=== PATIENT | female | born 1945 | race Caucasian/White ===

== ENCOUNTER 2019-11-02 13:11 | Emergency (ER) | payer MEDICARE, OTHER ==
--- NOTE | 2019-11-02 14:03 | ERPHSYRPT ---
- History of Present Illness Time Seen by Provider: 11/02/19 13:19 Source: patient Exam Limitations: no limitations Patient Subjective Stated Complaint: Pt has right sided weakness and feels like she can't get her words out. Also states she has a massive headache x 2wks Triage Nursing Assessment: Pt appears to be weak and has some right sided wea kness at this time. No trouble swallowing noted. Physician History: 74 years old female with history of hypertension, hyperlipidemia, coronary artery disease, congestive heart failure, gout presented in the ER with chief complaint of strokelike symptoms. Patient reports she woke up this morning was having some difficulty walking, getting off balance but did not have any fall. Later on she noticed that she had a difficulty producing words which lasted for almost 1 hour. This happened around noontime and later started to improve and is at her baseline on presentation in the ER. She denies any focal numbness tingling or weakness. Denies any new visual disturbance but what she has from her baseline. She denies any chest pain palpitations or shortness of breath. No history of stroke in the past. Timing/Duration: today, sudden, improved Severity: moderate Character of Deficits: impaired speech Deficits: off balance Baseline/Normal Cognition: alert oriented x 3 Current Cognition: alert oriented x 3 Baseline Gait: uses walker Associated Symptoms: fatigue, weakness (generalized), No loss of consciousness, No nausea, No vomiting Allergies/Adverse Reactions: dulaglutide [[facility]] Allergy (Verified 10/12/15 06:34) Stomach Pain [place] Allergy (Verified 10/12/15 06:34) Home Medications: Allopurinol 300 mg [Zyloprim 300 mg] 300 mg PO DAILY 10/08/15 [History] Gabapentin 300 mg PO DAILY 10/08/15 [History] Isosorbide Mononitrate 60 mg [Imdur 60MG] 60 mg PO DAILY 10/08/15 [History] Metoprolol Succinate 50 mg [Toprol Xl 50 MG] 50 mg PO BID 10/08/15 [History] Omeprazole [Prilosec] 40 mg PO DAILY 10/08/15 [History] Furosemide 40 mg [Lasix 40 MG] 80 mg PO DAILY 11/02/19 [History] Levothyroxine Sodium 100 Mcg [Synthroid 100 Mcg] 100 mcg PO DAILY 11/02/19 [History] Mifepristone [Korlym] 300 mg PO 3XW 11/02/19 [History] Hx Tetanus, Diphtheria Vaccination/Date Given: Yes Hx Influenza Vaccination/Date Given: Yes Hx Pneumococcal Vaccination/Date Given: No Immunizations Up to Date: Yes Travel Risk - International Travel Have you traveled outside of the country in past 3 weeks: No - Coronavirus Screening Are you exhibiting any of the following symptoms?: No Close contact with a COVID-19 positive Pt in past 14-21 Days: No - Review of Systems Constitutional: No Symptoms Eyes: No Symptoms Ears, Nose, & Throat: No Symptoms Respiratory: No Symptoms Cardiac: No Symptoms Abdominal/Gastrointestinal: No Symptoms Genitourinary Symptoms: No Symptoms Musculoskeletal: No Symptoms Skin: No Symptoms Neurological: Gait Changes, Speech Changes Psychological: No Symptoms Endocrine: No Symptoms Hematologic/Lymphatic: No Symptoms Immunological/Allergic: No Symptoms - Past Medical History Pertinent Past Medical History: Yes Neurological History: No Pertinent History ENT History: No Pertinent History Cardiac History: Angina, Hypertension, Myocardial Infarction ([place]) Respiratory History: Other Endocrine Medical History: Diabetes Type II Musculoskeletal History: Arthritis, Fractures GI Medical History: Gallbladder Disease, Hemorrhoids, Hernia History: No Pertinent History Psycho-Social History: No Pertinent History Female Reproductive Disorders: No Pertinent History Other Medical History: BILATERAL TKA; L 2005; R 2008, TYPE II DM, DYSPNEA; [place] 7 YEARS AGO; PT. HAS ANGINA AND USES NITRO PRN. - Past Surgical History Past Surgical History: Yes Neuro Surgical History: No Pertinent History Cardiac: Cardiac Catheterization Respiratory: No Pertinent History Gastrointestinal: Cholecystectomy Genitourinary: No Pertinent History Musculoskeletal: Joint Replacement, Orthopedic Surgery Female Surgical History: Hysterectomy Other Surgical History: guzman. knee replacements, rib fx. ,guzman feet spurs removed - Social History Smoking Status: Never smoker Exposure to second hand smoke: Yes Drug Use: none Patient Lives Alone: Yes - Female History Hx Last Menstrual Period: unknown Hx Now: No - Nursing Vital Signs Nursing Vital Signs: Initial Vital Signs Temperature 97.7 F 11/02/19 13:26 Pulse Rate 64 11/02/19 13:26 Respiratory Rate 20 11/02/19 13:26 Blood Pressure 192/82 11/02/19 13:26 O2 Sat by Pulse Oximetry 96 11/02/19 13:26 Pain Scale Pain Intensity 5 - [place] Coma Scale Best Eye Response ([place]): (4) open spontaneously Best Verbal Response ([place]): (5) oriented Best Motor Response ([place]): (6) obeys commands [place] Total: 15 - Physical Exam General Appearance: no apparent distress, alert Eye Exam: bilateral eye: normal inspection, PERRL, EOMI Ears, Nose, Throat Exam: normal ENT inspection, TMs normal, pharynx normal Neck Exam: normal inspection, non-tender, supple, full range of motion Respiratory: normal breath sounds, lungs clear Cardiovascular: regular rate/rhythm, normal heart sounds Gastrointestinal: soft, normal bowel sounds, No tenderness Back Exam: normal inspection Extremity Exam: normal inspection, normal range of motion Mental Status: alert, oriented x 3, 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 Exam: normal hearing, normal speech, PERRL Coordination/Gait: normal finger to nose, normal cerebellar function Motor/Sensory: no motor deficit, no sensory deficit, no pronator drift DTR: bicep (R): 2+, bicep (L): 2+, knee (R): 2+, knee (L): 2+ Skin Exam: normal color SpO2 Interpretation: normal SpO2: 96 O2 Delivery: Room Air - Course Nursing assessment & vital signs reviewed: Yes EKG Interpreted by Me: RATE (62), Sinus Rhythm, NORMAL AXIS, NORMAL INTERVALS, Right Bundle Branch Block, Q-wave (inf leads) Ordered Tests: Active Orders 24 hr Category Date Time Status Vendor Relationship Manager STAT Care 11/02/19 13:43 Active EKG-ER Only STAT Care 11/02/19 13:42 Active IV Insertion STAT Care 11/02/19 13:42 Active IV Insertion-2nd Peripheral STAT Care 11/02/19 13:42 Active NPO (ED) STAT Care 11/02/19 13:51 Active POCT Glucose Check STAT Care 11/02/19 13:43 Active CHEST 1 VIEW (PORTABLE) Stat Exams 11/02/19 13:51 Completed HEAD WITHOUT CONTRAST [CT] Stat Exams 11/02/19 13:11 Completed CBC W DIFF Stat Lab 11/02/19 14:11 Completed CMP Stat Lab 11/02/19 14:11 Completed CULTURE,URINE Stat Lab 11/02/19 14:34 Received POCT GLUCOSE Stat Lab 11/02/19 13:34 Completed PROTIME WITH INR Stat Lab 11/02/19 14:11 Completed PTT Stat Lab 11/02/19 14:11 Completed TROPONIN Q3H Lab 11/02/19 14:11 Completed TROPONIN Q3H Lab 11/02/19 17:00 Ordered TROPONIN Q3H Lab 11/02/19 20:00 Ordered TROPONIN Q3H Lab 11/02/19 23:00 Ordered UA W/RFX UR CULTURE Stat Lab 11/02/19 14:34 Completed Medication Summary Generic Name Dose Route Start Last Admin Trade Name Eduardo PRN Reason Stop Dose Admin Clopidogrel Bisulfate 75 mg 11/03/19 10:00 11/02/19 16:38 Plavix 75 Mg Tablet PO 12/03/19 09:59 75 mg DAILY TRACY Administration Discontinued Medications Generic Name Dose Route Start Last Admin Trade Name Eduardo PRN Reason Stop Dose Admin Aspirin 324 mg 11/02/19 15:36 11/02/19 16:37 Baby Aspirin 81 Mg Chew PO 11/02/19 15:37 324 mg STAT ONE Administration Aspirin Confirm 11/02/19 16:36 Baby Aspirin 81 Mg Chew Administered 11/02/19 16:37 Dose 324 mg .ROUTE .STK-MED ONE Clopidogrel Bisulfate Confirm 11/02/19 16:36 Plavix 75 Mg Tablet Administered 11/02/19 16:37 Dose 75 mg .ROUTE .STK-MED ONE Ceftriaxone Sodium/Dextrose 1 g in 50 mls @ 100 mls/hr 11/02/19 15:35 11/02/19 16:37 Rocephin 1 Gm-D5w 50 Ml Bag IV 11/02/19 16:04 100 ml/hr STAT STA 100 mls/hr Administration Ceftriaxone Sodium/Dextrose Confirm 11/02/19 16:36 Rocephin 1 Gm-D5w 50 Ml Bag Administered 11/02/19 16:37 Dose 1 g in 50 mls @ ud IV .STK-MED ONE Lab/Rad Data: Laboratory Result Diagrams 11/02/19 14:11 11/02/19 14:11 Laboratory Results 11/02/19 11/02/19 11/02/19 Range/Units 14:34 14:11 14:11 WBC (4.0-10.5) K/mm3 RBC (4.1-5.4) M/mm3 Hgb (12.0-16.0) gm/dl Hct (35-47) % MCV (78-100) fl MCH (26-32) pg MCHC (32-36) g/dl RDW (11.5-14.0) % Plt Count (150-450) K/mm3 MPV (7.5-11.0) fl Gran % (36.0-66.0) % Eos # (Auto) (0-0.5) Absolute Lymphs (auto) (1.0-4.6) Absolute Monos (auto) (0.0-1.3) Lymphocytes % (24.0-44.0) % Monocytes % (0.0-12.0) % Eosinophils % (0.00-5.0) % Basophils % (0.0-0.4) % Absolute Granulocytes (1.4-6.9) Basophils # (0-0.4) PT 12.2 (9.95-12.35) SECONDS INR 1.08 (0.8-3.0) APTT 30.4 (25.3-37.0) SECONDS Sodium (137-145) mmol/L Potassium (3.5-5.1) mmol/L Chloride (98-107) mmol/L Carbon Dioxide (22-30) mmol/L Anion Gap (5-15) MEQ/L BUN (7-17) mg/dL Creatinine (0.52-1.04) mg/dL Estimated GFR ML/MIN Glucose (74-106) mg/dL POC Glucometer (74 to 106) mg/dL Calcium (8.4-10.2) mg/dL Total Bilirubin (0.2-1.3) mg/dL AST (14-36) U/L ALT (0-35) U/L Alkaline Phosphatase (38-126) U/L Troponin I < 0.012 (0.000-0.034) ng/mL Serum Total Protein (6.3-8.2) g/dL Albumin (3.5-5.0) g/dL Urine Color YELLOW (YELLOW) Urine Appearance CLOUDY (CLEAR) Urine pH 6.0 (5-6) Ur Specific [place] 1.013 (1.005-1.025) Urine Protein 30 (Negative) Urine Ketones NEGATIVE (NEGATIVE) Urine Blood SMALL (0-5) Jason/ul Urine Nitrite NEGATIVE (NEGATIVE) Urine Bilirubin NEGATIVE (NEGATIVE) Urine Urobilinogen 4 (0-1) mg/dL Ur Leukocyte Esterase LARGE (NEGATIVE) Urine WBC (Auto) >100 (0-5) /HPF Urine RBC (Auto) NONE (0-2) /HPF U Epithel Cells (Auto) NONE (FEW) /HPF Urine Bacteria (Auto) MODERATE (NEGATIVE) /HPF Urine Mucus (Auto) SLIGHT (NEGATIVE) /HPF Urine Culture Reflexed YES (NO) Urine Glucose 150 (NEGATIVE) mg/dL 11/02/19 11/02/19 11/02/19 Range/Units 14:11 14:11 13:34 WBC 10.0 (4.0-10.5) K/mm3 RBC 4.93 (4.1-5.4) M/mm3 Hgb 15.8 (12.0-16.0) gm/dl Hct 48.0 H (35-47) % MCV 97.4 (78-100) fl MCH 32.0 (26-32) pg MCHC 32.9 (32-36) g/dl RDW 14.1 H (11.5-14.0) % Plt Count 233 (150-450) K/mm3 MPV 12.0 H (7.5-11.0) fl Gran % 67.9 H (36.0-66.0) % Eos # (Auto) 0.36 (0-0.5) Absolute Lymphs (auto) 1.99 (1.0-4.6) Absolute Monos (auto) 0.84 (0.0-1.3) Lymphocytes % 19.9 L (24.0-44.0) % Monocytes % 8.4 (0.0-12.0) % Eosinophils % 3.6 (0.00-5.0) % Basophils % 0.2 (0.0-0.4) % Absolute Granulocytes 6.78 (1.4-6.9) Basophils # 0.02 (0-0.4) PT (9.95-12.35) SECONDS INR (0.8-3.0) APTT (25.3-37.0) SECONDS Sodium 135 L (137-145) mmol/L Potassium 4.0 (3.5-5.1) mmol/L Chloride 102 (98-107) mmol/L Carbon Dioxide 27 (22-30) mmol/L Anion Gap 10.5 (5-15) MEQ/L BUN 20 H (7-17) mg/dL Creatinine 1.45 H (0.52-1.04) mg/dL Estimated GFR 37.4 ML/MIN Glucose 291 H (74-106) mg/dL POC Glucometer 274 H (74 to 106) mg/dL Calcium 9.0 (8.4-10.2) mg/dL Total Bilirubin 0.70 (0.2-1.3) mg/dL AST 25 (14-36) U/L ALT 17 (0-35) U/L Alkaline Phosphatase 126 (38-126) U/L Troponin I (0.000-0.034) ng/mL Serum Total Protein 7.0 (6.3-8.2) g/dL Albumin 3.9 (3.5-5.0) g/dL Urine Color (YELLOW) Urine Appearance (CLEAR) Urine pH (5-6) Ur Specific [place] (1.005-1.025) Urine Protein (Negative) Urine Ketones (NEGATIVE) Urine Blood (0-5) Jason/ul Urine Nitrite (NEGATIVE) Urine Bilirubin (NEGATIVE) Urine Urobilinogen (0-1) mg/dL Ur Leukocyte Esterase (NEGATIVE) Urine WBC (Auto) (0-5) /HPF Urine RBC (Auto) (0-2) /HPF U Epithel Cells (Auto) (FEW) /HPF Urine Bacteria (Auto) (NEGATIVE) /HPF Urine Mucus (Auto) (NEGATIVE) /HPF Urine Culture Reflexed (NO) Urine Glucose (NEGATIVE) mg/dL - Progress Progress: unchanged, re-examined Progress Note: 11/02/19 15:33 74 years old is evaluated for strokelike symptoms. Her speech deficit is improved. She has no other focal neuro deficit. She is made stroke activate he had did not show any bleeding. Although the radiologist did not report any acute or subacute stroke but I have obtained specialist regional sales director neurology consult who has reviewed the CT films and think patient is having a subacute stroke. She is out of the window. Recommended starting her on aspirin and continue dual antiplatelet therapy for 21 days. Recommended other stroke work- up and admission to telemetry service. She is not a candidate for any intervention. He does have UTI and started on Rocephin. Readmitted to hospital. 09/12/20 16:41 I have discussed with Dr. Fitzgerald who is agreeable with admitting patient to the hospital service. I have discussed with patient and her brother who do not think patient needs to be admitted as they do not like this hospital beds. Patient states "I am in uncomfortable position in the hospital beds and cannot stay here". Discussed with patient and family in detail about risk of leaving without full work-up including another full-blown stroke leading to permanent disability and even which the verbalized understanding but still want to l eave AGAINST MEDICAL ADVICE. They would follow-up outpatient with neurologist. I have given her prescription of aspirin and Plavix as recommended by neurologist and also Keflex for UTI. Recommended return to ER for any worsening which patient says yes. Discussed with Dr.: Min, Other Counseled pt/family regarding: lab results, diagnosis, need for follow-up, rad results - Departure Departure Disposition: AMA Clinical Impression: Acute UTI Stroke Qualifiers: CVA mechanism: unspecified Qualified Code(s): I63.9 - Cerebral infarction, unspecified Condition: Stable Critical Care Time: Yes Critical Care Time(excluding separately billable procedures): Critical 30-74 mins Referrals: SUBHASH FIGUEROA MD [Primary Care Provider] - (2 days for re evaluation) Instructions: Stroke, Transient Ischemic Attack (DC), Urinary Tract Infection, Adult (DC) Additional Instructions: Take daily aspirin 81 mg and Plavix 75 mg for 21 days. After that take aspirin 81 mg daily only. Continue with antibiotics for UTI. Follow-up with primary care and neurology for reevaluation. Return to ER for worsening difficulty speech, balance, numbness tingling, weakness or confusion. Prescriptions: Aspirin EC 81 mg [Ecotrin 81 mg] 81 mg PO DAILY 90 Days #30 tablet Cephalexin Mh 500 mg [Keflex 500 mg] 500 mg PO TID #21 capsule Clopidogrel Bisulfate 75 mg [PLAVIX 75 MG Tablet] 75 mg PO DAILY 20 Days #20 tablet
[2019-11-02 14:47] LABS: Absolute Neutrophil Ct (ANC) 6.78 (1.4-6.9); BASOPHIL % 0.2 % (0.0-0.4); Basophil (Absolute #) 0.02 (0-0.4); Eosinophil % 3.6 % (0.00-5.0); Eosinophil (Absolute #) 0.36 (0-0.5); Hemoglobin 15.8 gm/dl (12.0-16.0); Lymphocyte (Absolute #) 1.99 (1.0-4.6); Lymphocytes % 19.9 % (24.0-44.0); Mean Cell Volume 97.4 fl (78-100); Mean Corpuscular Hgb Concent. 32.9 g/dl (32-36); Monocyte (Absolute #) 0.84 (0.0-1.3); Monocytes % 8.4 % (0.0-12.0); Neutrophil % 67.9 % (36.0-66.0); Platelet Count 233 K/mm3 (150-450); Red Blood Count 4.93 M/mm3 (4.1-5.4); Red Cell Distribution Width 14.1 % (11.5-14.0)
[2019-11-02 14:50] LABS: INR 1.08 (0.8-3.0); PROTIME 12.2 SECONDS (9.95-12.35)
[2019-11-02 14:53] LABS: ALBUMIN 3.9 g/dL (3.5-5.0); ANION GAP 10.5 MEQ/L (5-15); BILIRUBIN,TOTAL 0.7 mg/dL (0.2-1.3); Creatinine 1 1.45 mg/dL (0.52-1.04); EST GLOMERULAR FILTRATION RATE 37.4 ML/MIN; PTT 30.4 SECONDS (25.3-37.0)
[2019-11-02 15:19] LABS: Appearance CLOUDY (CLEAR); Bacteria MODERATE /HPF (NEGATIVE); Bilirubin NEGATIVE (NEGATIVE); Blood SMALL Ery/ul (0-5); Glucose 150 mg/dL (NEGATIVE); Ketones NEGATIVE (NEGATIVE); Leukocyte Esterase LARGE (NEGATIVE); Mucus SLIGHT /HPF (NEGATIVE); Nitrite NEGATIVE (NEGATIVE); Protein,Urine Dip 30 (Negative); Specific Gravity 1.013 (1.005-1.025); Urobilinogen 4 mg/dL (0-1); WBC >100 /HPF (0-5)
[2019-11-02] MEDS ORDERED: ROCEPHIN 1 Gm-D5w 50 ml Bag** 1 G/50 ML IVPB IV STA (15:35)
[2019-11-02] MEDS ORDERED: BABY ASPIRIN 81 MG CHEW PO ONE (15:36)
[2019-11-02 15:37] VITALS: O2SAT 96
--- NOTE | 2019-11-02 16:10 | XRAY ---
Indication: Stroke symptoms. Multiple contiguous axial images obtained through the head without contrast. Comparison: None Age-appropriate global atrophy and mild periventricular degenerative micro-ischemia bilaterally. 1.5 cm focus of old infarct posterior limb left internal capsule. No acute intracranial hemorrhage, abnormal extra-axial fluid collection, or mass effect. Fourth ventricle is midline without hydrocephalus. Bony calvarium intact with hyperostosis frontalis interna. Visualized paranasal sinuses and mastoid air cells are clear. Impression: 1. 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 2. Atrophy and degenerative micro-ischemia within normal limits. 3. No acute intracranial abnormalities. Comment: Preliminary interpretation was made by [facility]. No critical discrepancy.
--- NOTE | 2019-11-02 16:15 | XRAY ---
Indication: Stroke symptoms. Comparison: August 03, 2011. Portable chest remains clear again with incidental tiny calcified granulomas. Heart remains borderline enlarged. Bony thorax intact with mild osteopenia, mild degenerative changes, and old left rib fractures. Impression: Negative chest with chronic features.
[2019-11-02] MEDS ORDERED: ROCEPHIN 1 Gm-D5w 50 ml Bag** 1 G/50 ML IVPB IV ONE (16:36)
[2019-11-02] MEDS ORDERED: PLAVIX 75 MG Tablet ONE (16:36)
[2019-11-02] MEDS ORDERED: BABY ASPIRIN 81 MG CHEW ONE (16:36)
[2019-11-02 17:06] VITALS: BP 163/72; PULSE 57
[2019-11-03] MEDS ORDERED: PLAVIX 75 MG Tablet PO SCH (10:00)
== END 2019-11-02 17:30 | disposition left against medical advice (07) ==
LOC: ED 13:11
DX: N39.0 Urinary tract infection, site not specified (principal); I63.9 Cerebral infarction, unspecified; I10 Essential (primary) hypertension; E78.5 Hyperlipidemia, unspecified; I25.10 Atherosclerotic heart disease of native coronary artery without angina pectoris; I50.9 Heart failure, unspecified; Z79.899 Other long term (current) drug therapy; E11.9 Type 2 diabetes mellitus without complications
CPT/HCPCS: 70450; 80053; 81001; 82962; 84484; 85025; 85610; 85730; 87077; 87086; 87186; 93005; 93041; 96365; 99291; P9612; 36000; 36415; 71045; 99285; J0696; A9270-GY

== ENCOUNTER 2020-08-23 14:04 | Emergency (ER) | payer MEDICARE, OTHER ==
--- NOTE | 2020-08-23 14:21 | ERPHSYRPT ---
- History of Present Illness Time Seen by Provider: 08/23/20 14:15 Source: patient, family, EMS Exam Limitations: no limitations Physician History: had syncope while sitting during lunch and had alerting response with shaking - not actual seizure - no post ictal effect. No CP or SOBreath. No abd pain - no illness symptoms. 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)] Allergy (Verified 08/23/20 14:16) Stomach Pain walnut Allergy (Verified 08/23/20 14:16) Home Medications: Allopurinol 300 mg [Zyloprim 300 mg] 300 mg PO DAILY 10/08/15 [History] Gabapentin 300 mg PO DAILY 10/08/15 [History] Isosorbide Mononitrate 60 mg [Imdur 60MG] 100 mg PO DAILY 10/08/15 [History] Metoprolol Succinate 50 mg [Toprol Xl 50 MG] 50 mg PO BID 10/08/15 [History] Omeprazole [Prilosec] 40 mg PO DAILY 10/08/15 [History] Furosemide 40 mg [Lasix 40 MG] 80 mg PO DAILY 11/02/19 [History] Levothyroxine Sodium 100 Mcg [Synthroid 100 Mcg] 100 mcg PO DAILY 11/02/19 [History] Mifepristone [Korlym] 300 mg PO 3XW 11/02/19 [History] Amlodipine Besylate 1.5 mg DAILY 08/23/20 [History] Atorvastatin Calcium [Lipitor] 1 ea DAILY 08/23/20 [History] Famotidine 20 mg [Pepcid 20 MG] 1 ea DAILY 08/23/20 [History] Insulin Aspart [Novolog] 08/23/20 [History] Insulin Aspart [Novolog] 25 units TID 08/23/20 [History] Insulin Detemir [Levemir] 40 units DAILY 08/23/20 [History] Hx Tetanus, Diphtheria Vaccination/Date Given: Yes Hx Influenza Vaccination/Date Given: Yes Hx Pneumococcal Vaccination/Date Given: No - Past Medical History Pertinent Past Medical History: Yes Neurological History: No Pertinent History ENT History: No Pertinent History Cardiac History: Angina, Hypertension, Myocardial Infarction (GA) Respiratory History: Other Endocrine Medical History: Diabetes Type II Musculoskeletal History: Arthritis, Fractures GI Medical History: Gallbladder Disease, Hemorrhoids, Hernia History: No Pertinent History Psycho-Social History: No Pertinent History Female Reproductive Disorders: No Pertinent History Other Medical History: BILATERAL TKA; L 2005; R 2008, TYPE II DM, DYSPNEA; GA 7 YEARS AGO; PT. HAS ANGINA AND USES NITRO PRN. - Past Surgical History Past Surgical History: Yes Neuro Surgical History: No Pertinent History Cardiac: Cardiac Catheterization Respiratory: No Pertinent History Gastrointestinal: Cholecystectomy Genitourinary: No Pertinent History Musculoskeletal: Joint Replacement, Orthopedic Surgery Female Surgical History: Hysterectomy Other Surgical History: guzman. knee replacements, rib fx. ,guzman feet spurs removed - Social History Smoking Status: Never smoker Exposure to second hand smoke: Yes Drug Use: none Patient Lives Alone: Yes - Review of Systems Constitutional: No Fever, No Chills Eyes: No Symptoms Ears, Nose, & Throat: No Symptoms Respiratory: No Cough, No Dyspnea Cardiac: No Chest Pain, No Edema, No Syncope Abdominal/Gastrointestinal: No Abdominal Pain, No Nausea, No Vomiting, No Diarrhea Genitourinary Symptoms: No Dysuria Musculoskeletal: No Back Pain, No Neck Pain Skin: No Rash Neurological: Other (syncope), No Dizziness, No Focal Weakness, No Sensory Changes Psychological: No Symptoms Endocrine: No Symptoms Hematologic/Lymphatic: No Symptoms Immunological/Allergic: No Symptoms All Other Systems: Reviewed and Negative Physical Exam - Nursing Vital Signs Nursing Vital Signs: Initial Vital Signs Temperature 97.0 F 08/23/20 14:07 Pulse Rate 66 08/23/20 14:07 Respiratory Rate 18 08/23/20 14:07 Blood Pressure 119/74 08/23/20 14:07 O2 Sat by Pulse Oximetry 95 08/23/20 14:07 Pain Scale Pain Intensity 3 - [place] Coma Scale Best Eye Response ([place]): (4) open spontaneously Best Verbal Response ([place]): (5) oriented Best Motor Response ([place]): (6) obeys commands [place] Total: 15 - Physical Exam General Appearance: no apparent distress, alert Eye Exam: bilateral eye: PERRL, EOMI Ears, Nose, Throat Exam: normal ENT inspection, pharynx normal, moist mucous membranes Neck Exam: normal inspection, non-tender, supple, full range of motion Respiratory: normal breath sounds, lungs clear, No chest tenderness, No respiratory distress Cardiovascular: regular rate/rhythm, capillary refill <2 sec, No murmur, No pulse deficit Gastrointestinal: soft, No tenderness, No distention, No mass Pelvic Exam: deferred Rectal Exam: deferred Back Exam: normal inspection, normal range of motion, No CVA tenderness, No vertebral tenderness Extremity Exam: normal inspection, normal range of motion, pelvis stable, No tenderness Mental Status: alert, oriented x 3, 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 Exam: normal speech, PERRL, No facial droop Coordination/Gait: normal finger to nose Motor/Sensory: no motor deficit, no sensory deficit, no pronator drift DTR: bicep (R): 2+, bicep (L): 2+, tricep (R): 2+, tricep (L): 2+, knee (R): 2+, knee (L): 2+, ankle (R): 2+ Skin Exam: normal color, warm, dry, No rash SpO2 Interpretation: normal SpO2: 97 O2 Delivery: Room Air - Course Nursing assessment & vital signs reviewed: Yes EKG Interpreted by Me: Right Sledge Deviation, Right Bundle Branch Block, Non- specific ST Changes - CT Exams Head CT Interpretation: Tele-radiologist Report, No/Intracranial Hemorrhag, Other (concern for attenuated small area vs artifact.) Ordered Tests: Active Orders 24 hr Category Date Time Status Orange Picker Machine Operator STAT Care 08/23/20 14:21 Active EKG-ER Only STAT Care 08/23/20 14:21 Active IV Insertion STAT Care 08/23/20 14:21 Active Pulse Oximetry (ED) STAT Care 08/23/20 14:21 Active Consult Neurology ROUTINE Cons 08/23/20 15:34 Completed HEAD WITHOUT CONTRAST [CT] Stat Exams 08/23/20 14:18 Taken CBC W DIFF Stat Lab 08/23/20 14:43 Completed CMP Stat Lab 08/23/20 14:43 Completed Lactic Acid Stat Lab 08/23/20 14:22 Completed TROPONIN Q3H Lab 08/23/20 14:43 Completed TROPONIN Q3H Lab 08/23/20 17:37 Completed TROPONIN Q3H Lab 08/23/20 20:30 Ordered TROPONIN Q3H Lab 08/23/20 23:30 Ordered TROPONIN Q3H Lab 08/24/20 02:30 Ordered UA W/RFX UR CULTURE Stat Lab 08/23/20 14:21 Ordered Medication Summary Generic Name Dose Route Start Last Admin Trade Name Eduardo PRN Reason Stop Dose Admin Sodium Chloride 1,000 mls @ 100 mls/hr 08/23/20 14:30 08/23/20 15:34 Sodium Chloride 0.9% 1000 Ml IV 09/22/20 14:29 100 mls/hr .Q10H TRACY Administration Lab/Rad Data: Laboratory Result Diagrams 08/23/20 14:43 08/23/20 14:43 Laboratory Results 08/23/20 08/23/20 08/23/20 Range/Units 17:37 14:43 14:43 WBC (4.0-10.5) K/mm3 RBC (4.1-5.4) M/mm3 Hgb (12.0-16.0) gm/dl Hct (35-47) % MCV (78-100) fl MCH (26-32) pg MCHC (32-36) g/dl RDW (11.5-14.0) % Plt Count (150-450) K/mm3 MPV (7.5-11.0) fl Gran % (36.0-66.0) % Eos # (Auto) (0-0.5) Absolute Lymphs (auto) (1.0-4.6) Absolute Monos (auto) (0.0-1.3) Lymphocytes % (24.0-44.0) % Monocytes % (0.0-12.0) % Eosinophils % (0.00-5.0) % Basophils % (0.0-0.4) % Absolute Granulocytes (1.4-6.9) Basophils # (0-0.4) Sodium 139 (137-145) mmol/L Potassium 3.7 (3.5-5.1) mmol/L Chloride 101 (98-107) mmol/L Carbon Dioxide 27 (22-30) mmol/L Anion Gap 14.4 (5-15) MEQ/L BUN 18 H (7-17) mg/dL Creatinine 1.50 H (0.52-1.04) mg/dL Estimated GFR 36.0 ML/MIN Glucose 147 H (74-106) mg/dL Lactic Acid (0.4-2.0) Calcium 9.1 (8.4-10.2) mg/dL Total Bilirubin 0.50 (0.2-1.3) mg/dL AST 31 (14-36) U/L ALT 25 (0-35) U/L Alkaline Phosphatase 125 (38-126) U/L Troponin I < 0.012 < 0.012 (0.000-0.034) ng/mL Serum Total Protein 7.3 (6.3-8.2) g/dL Albumin 4.1 (3.5-5.0) g/dL Slides for Path Review 08/23/20 08/23/20 Range/Units 14:43 14:22 WBC 10.7 H (4.0-10.5) K/mm3 RBC 4.82 (4.1-5.4) M/mm3 Hgb 14.9 (12.0-16.0) gm/dl Hct 46.1 (35-47) % MCV 95.6 (78-100) fl MCH 30.9 (26-32) pg MCHC 32.3 (32-36) g/dl RDW 14.3 H (11.5-14.0) % Plt Count 273 (150-450) K/mm3 MPV 12.4 H (7.5-11.0) fl Gran % 65.3 (36.0-66.0) % Eos # (Auto) 0.41 (0-0.5) Absolute Lymphs (auto) 2.28 (1.0-4.6) Absolute Monos (auto) 1.01 (0.0-1.3) Lymphocytes % 21.3 L (24.0-44.0) % Monocytes % 9.4 (0.0-12.0) % Eosinophils % 3.8 (0.00-5.0) % Basophils % 0.2 (0.0-0.4) % Absolute Granulocytes 7.00 H (1.4-6.9) Basophils # 0.02 (0-0.4) Sodium (137-145) mmol/L Potassium (3.5-5.1) mmol/L Chloride (98-107) mmol/L Carbon Dioxide (22-30) mmol/L Anion Gap (5-15) MEQ/L BUN (7-17) mg/dL Creatinine (0.52-1.04) mg/dL Estimated GFR ML/MIN Glucose (74-106) mg/dL Lactic Acid 1.7 (0.4-2.0) Calcium (8.4-10.2) mg/dL Total Bilirubin (0.2-1.3) mg/dL AST (14-36) U/L ALT (0-35) U/L Alkaline Phosphatase (38-126) U/L Troponin I (0.000-0.034) ng/mL Serum Total Protein (6.3-8.2) g/dL Albumin (3.5-5.0) g/dL Slides for Path Review YES - Progress Progress: improved, re-examined Progress Note: 08/23/20 17:03 discussed with Neuro consult and cannot rule out very small CVA on CT although no clinical signs as yet all suggest MRI if possible, but this is difficult to arrange at this time as most [facility] are unable - will check first and consider. 08/23/20 19:31 discussed with [facility] and family and all agree best to transfer pt there for syncope workup and neuro monitoring ( understanding they will not see a neurologist other than our tele neuro already accomplished) , and they will plan for MRI in am - pt and family understand and are comfortable with this risk of progression but that it is best at the more equiped facility there - they have the capcity to make this choice. Discussed with : Other (Neuro consult tele and [facility] ) Will see patient in: ED Counseled pt/family regarding: lab results, diagnosis, need for follow-up, rad results - Departure Departure Disposition: Transfer Clinical Impression: syncopal episode with old cva , CT findi Condition: Good Critical Care Time: No Referrals: SUBHASH FIGUEROA MD [Primary Care Provider] -
[2020-08-23] MEDS ORDERED: Sodium Chloride 0.9% 1000 ML 1,000 ML IV SCH (14:30)
[2020-08-23 15:09] LABS: ALBUMIN 4.1 g/dL (3.5-5.0); ANION GAP 14.4 MEQ/L (5-15); BILIRUBIN,TOTAL 0.5 mg/dL (0.2-1.3); Calcium 9.1 mg/dL (8.4-10.2); Creatinine 1 1.5 mg/dL (0.52-1.04); Potassium 3.7 mmol/L (3.5-5.1); Total Protein 7.3 g/dL (6.3-8.2)
[2020-08-23] MEDS ORDERED: Sodium Chloride 0.9% 1000 ML 1,000 ML ONE (15:15)
[2020-08-23 15:20] LABS: BASOPHIL % 0.2 % (0.0-0.4); Basophil (Absolute #) 0.02 (0-0.4); Eosinophil % 3.8 % (0.00-5.0); Eosinophil (Absolute #) 0.41 (0-0.5); Hematocrit 46.1 % (35-47); Hemoglobin 14.9 gm/dl (12.0-16.0); Lymphocyte (Absolute #) 2.28 (1.0-4.6); Lymphocytes % 21.3 % (24.0-44.0); Mean Cell Volume 95.6 fl (78-100); Mean Corpuscular Hemoglobin 30.9 pg (26-32); Mean Corpuscular Hgb Concent. 32.3 g/dl (32-36); Mean Platelet Volume 12.4 fl (7.5-11.0); Monocyte (Absolute #) 1.01 (0.0-1.3); Monocytes % 9.4 % (0.0-12.0); Neutrophil % 65.3 % (36.0-66.0); Platelet Count 273 K/mm3 (150-450); Red Blood Count 4.82 M/mm3 (4.1-5.4); Red Cell Distribution Width 14.3 % (11.5-14.0); White Blood Count 10.7 K/mm3 (4.0-10.5)
[2020-08-23 15:47] LABS: Slide Review 1 YES
--- NOTE | 2020-08-23 19:32 | XRAY ---
Indication: Syncope. History stroke. Multiple contiguous images obtained through the head without contrast. Comparison: November 09, 2019. There is again age-appropriate global and small old infarct posterior limb left internal capsule. Progressive worsening moderate periventricular degenerative micro-ischemia bilaterally. No acute intracranial hemorrhage, abnormal extra-axial fluid collection, or mass effect. Fourth ventricle is midline without hydrocephalus. Bony calvarium intact again with hyperostosis frontalis interna. Paranasal sinuses and mastoid air cells are clear. Impression: 1. Worsening periventricular degenerative micro-ischemia. 2. Again global atrophy and old infarct left internal capsule. 3. No acute intracranial abnormalities. Comment: Preliminary interpretation was made by C. No critical discrepancy.
[2020-08-23 21:21] VITALS: BP 148/69; PULSE 61; O2SAT 97
== END 2020-08-23 21:17 | disposition short-term general hospital (02) ==
LOC: ED 14:04
DX: R55 Syncope and collapse (principal); I10 Essential (primary) hypertension; E11.9 Type 2 diabetes mellitus without complications; Z86.73 Personal history of transient ischemic attack (TIA), and cerebral infarction without residual deficits; Z79.899 Other long term (current) drug therapy; I25.2 Old myocardial infarction
CPT/HCPCS: 36000; 36415; 70450; 80053; 83605; 84484; 85025; 93005; 93041; 94760; 99285

== ENCOUNTER 2021-05-21 13:32 | Observation (INO) | payer MEDICARE, OTHER ==
[2021-05-21] MEDS ORDERED: Sodium Chloride 0.9% 1000 ML 1,000 ML IV STA (13:45)
[2021-05-21] MEDS ORDERED: Sodium Chloride 0.9% 1000 ML 1,000 ML ONE (13:55)
[2021-05-21] MEDS ORDERED: Zofran 4 MG/2 ML VIAL IV ONE (14:02)
--- NOTE | 2021-05-21 14:02 | ERPHSYRPT ---
- History of Present Illness Time Seen by Provider: 05/21/21 13:35 Source: patient Exam Limitations: no limitations Patient Subjective Stated Complaint: Pt states "I have not had a bowel movment in 6 days and I have been straining so hard I think my sugar went down and I am geting weaker and weaker" Triage Nursing Assessment: Pt presented alert and oriented X 3, skin pwd. Pt ambulates with a slow gait, able to speak in clear full sentences. pt had small amount of stool in her underwear. Physician History: Patient is here stating that she has constipation. States she has not had a bowel movement and 6 days. However, upon further questioning she states that she has had very small amounts of stool. She has no falls or other trauma. She states that she was straining so hard today that she dropped her blood sugar. She is on several different blood sugar medication. She has no fever or chills. Patient states that her abdominal pain has mostly gone away since being here. When EMS got to the patient her blood sugar was 50. However is since improved on a D5 drip she is at 104 at this point in time. Timing/Duration: week(s) Severity: moderate Modifying Factors: Improves With: other Associated Symptoms: abdominal pain, other (Constipation) Allergies/Adverse Reactions: dulaglutide [From [facility]] Allergy (Verified 08/23/20 14:16) Stomach Pain wal[place] Allergy (Verified 08/23/20 14:16) Home Medications: Allopurinol 300 mg [Zyloprim 300 mg] 300 mg PO DAILY 10/08/15 [History] Gabapentin 300 mg PO DAILY 10/08/15 [History] Isosorbide Mononitrate 60 mg [Imdur 60MG] 100 mg PO DAILY 10/08/15 [History] Metoprolol Succinate 50 mg [Toprol Xl 50 MG] 50 mg PO BID 10/08/15 [History] Omeprazole [Prilosec] 40 mg PO DAILY 10/08/15 [History] Furosemide 40 mg [Lasix 40 MG] 80 mg PO DAILY 11/02/19 [History] Levothyroxine Sodium 100 Mcg [Synthroid 100 Mcg] 100 mcg PO DAILY 11/02/19 [History] Mifepristone [Korlym] 300 mg PO 3XW 11/02/19 [History] Amlodipine Besylate 1.5 mg DAILY 08/23/20 [History] Atorvastatin Calcium [Lipitor] 1 ea DAILY 08/23/20 [History] Famotidine 20 mg [Pepcid 20 MG] 1 ea DAILY 08/23/20 [History] Insulin Aspart [Novolog] 1 unit IM DAILY 08/23/20 [History] Insulin Aspart [Novolog] 25 units TID 08/23/20 [History] Insulin Detemir [Levemir] 40 units DAILY 08/23/20 [History] Hx Tetanus, Diphtheria Vaccination/Date Given: Yes Hx Influenza Vaccination/Date Given: Yes Hx Pneumococcal Vaccination/Date Given: No Immunizations Up to Date: Yes Travel Risk - International Travel Have you traveled outside of the country in past 3 weeks: No - Coronavirus Screening Are you exhibiting any of the following symptoms?: No Close contact with a COVID-19 positive Pt in past 14-21 Days: No - Vaccine Status Have you recieved a Covid-19 vaccination: Yes [address] Reporter: Moderna - Vaccination Dates Date of 2cond Vaccination (if applicable): mar - Review of Systems Constitutional: No Fever, No Chills Eyes: No Symptoms Ears, Nose, & Throat: No Symptoms Respiratory: No Cough, No Dyspnea Cardiac: No Chest Pain, No Edema, No Syncope Abdominal/Gastrointestinal: Abdominal Pain, No Nausea, No Vomiting, No Diarrhea Genitourinary Symptoms: No Dysuria Musculoskeletal: No Back Pain, No Neck Pain Skin: No Rash Neurological: No Dizziness, No Focal Weakness, No Sensory Changes Psychological: No Symptoms Endocrine: No Symptoms All Other Systems: Reviewed and Negative - Past Medical History Pertinent Past Medical History: Yes Neurological History: Stroke ENT History: No Pertinent History Cardiac History: Hypertension, Myocardial Infarction ([place]) Respiratory History: No Pertinent History Endocrine Medical History: Adrenal Insufficiency, Diabetes Type II, Hypothyroidism Musculoskeletal History: Osteoarthritis GI Medical History: Gallbladder Disease, Hemorrhoids, Hernia History: No Pertinent History Psycho-Social History: No Pertinent History Female Reproductive Disorders: No Pertinent History Other Medical History: STAGE III KIDNEY, SOB WITH EXERTION, [place] 10 YEARS AGO, - Past Surgical History Past Surgical History: Yes Neuro Surgical History: No Pertinent History Cardiac: Cardiac Catheterization Respiratory: No Pertinent History Gastrointestinal: Cholecystectomy Genitourinary: No Pertinent History Musculoskeletal: Joint Replacement, Orthopedic Surgery Female Surgical History: Hysterectomy Other Surgical History: guzman. knee replacements, rib fx. ,guzman feet spurs removed - Social History Smoking Status: Never smoker Exposure to second hand smoke: Yes Drug Use: none Patient Lives Alone: Yes - Nursing Vital Signs Nursing Vital Signs: Initial Vital Signs Temperature 97.1 F 05/21/21 13:34 Pulse Rate 77 05/21/21 13:34 Respiratory Rate 18 05/21/21 13:34 Blood Pressure 144/75 05/21/21 13:34 O2 Sat by Pulse Oximetry 93 L 05/21/21 13:34 Pain Scale Pain Intensity 2 - Physical Exam General Appearance: no apparent distress, alert Eye Exam: PERRL/EOMI, eyes nml inspection Ears, Nose, Throat Exam: normal ENT inspection, TMs normal, pharynx normal, moist mucous membranes Neck Exam: normal inspection, non-tender, supple, full range of motion Respiratory Exam: normal breath sounds, lungs clear, No respiratory distress Cardiovascular Exam: regular rate/rhythm, normal heart sounds, normal peripheral pulses Gastrointestinal/Abdomen Exam: soft, normal bowel sounds, other (No rebound guarding or tenderness. Patient does have an obese abdomen.), No tenderness, No mass Back Exam: normal inspection, normal range of motion, No CVA tenderness, No vertebral tenderness Extremity Exam: normal inspection, normal range of motion, pelvis stable Neurologic Exam: alert, oriented x 3, cooperative, normal mood/affect, nml cerebellar function, nml station & gait, sensation nml, No motor deficits Skin Exam: normal color, warm, dry, No rash Lymphatic Exam: No adenopathy SpO2: 93 - Course Nursing assessment & vital signs reviewed: Yes EKG Interpreted by Me: Sinus Rhythm Ordered Tests: Active Orders 24 hr Category Date Time Status Want Ad Receiver STAT Care 05/21/21 13:45 Active Code Status Order ROUTINE Care 05/21/21 17:42 Active EKG-ER Only STAT Care 05/21/21 13:45 Active IV Care Q6H Care 05/21/21 17:42 Active IV Insertion STAT Care 05/21/21 13:[address] in Observation ROUTINE Care 05/21/21 17:42 Active Heart-Healthy Diet Diet 05/21/21 Breakfast Active ABDOMEN AND PELVIS W/0 CONTRAS [CT] Stat Exams 05/21/21 15:08 Taken CHEST 2 VIEWS (PA AND LAT) Stat Exams 05/21/21 13:45 Completed CHEST WITHOUT CONTRAST [CT] Stat Exams 05/21/21 15:07 Taken BMP AM.LAB Lab 05/22/21 04:00 Ordered CBC W DIFF AM.LAB Lab 05/22/21 04:00 Ordered CBC W DIFF Stat Lab 05/21/21 14:00 Completed CMP Stat Lab 05/21/21 14:00 Completed LIPASE Stat Lab 05/21/21 14:00 Completed Manual Differential NC Stat Lab 05/21/21 14:00 Completed NT PRO BNP Stat Lab 05/21/21 14:00 Completed POCT GLUCOSE Stat Lab 05/21/21 13:43 Completed POCT GLUCOSE Stat Lab 05/21/21 15:58 Completed TROPONIN Q3H Lab 05/21/21 14:00 Completed TROPONIN Q3H Lab 05/21/21 17:27 Received TROPONIN Q3H Lab 05/21/21 19:45 Ordered TROPONIN Q3H Lab 05/21/21 22:45 Ordered TROPONIN Q3H Lab 05/22/21 01:45 Ordered Medication Summary Generic Name Dose Route Start Last Admin Trade Name Freq PRN Reason Stop Dose Admin Sodium Chloride 1,000 mls @ 100 mls/hr 05/21/21 17:45 Sodium Chloride 0.9% 1000 Ml IV 06/20/21 17:44 .Q10H TRACY Discontinued Medications Generic Name Dose Route Start Last Admin Trade Name Freq PRN Reason Stop Dose Admin Sodium Chloride 1,000 mls @ 999 mls/hr 05/21/21 13:45 05/21/21 15:44 Sodium Chloride 0.9% 1000 Ml IV 05/21/21 14:45 Infused .Q1H1M STA Infusion Sodium Chloride Confirm 05/21/21 13:55 Sodium Chloride 0.9% 1000 Ml Administered 05/21/21 13:56 Dose 1,000 mls @ ud .ROUTE .STK-MED ONE Ondansetron HCl 8 mg 05/21/21 14:02 05/21/21 15:00 Ondansetron Hcl 4 Mg/2 Ml Vial IV 05/21/21 14:03 8 mg STAT ONE Administration Ondansetron HCl Confirm 05/21/21 14:53 Ondansetron Hcl 4 Mg/2 Ml Vial Administered 05/21/21 14:54 Dose 8 mg .ROUTE .STK-MED ONE Lab/Rad Data: Laboratory Result Diagrams 05/21/21 14:00 05/21/21 14:00 Laboratory Results 05/21/21 05/21/21 05/21/21 Range/Units 15:58 14:00 14:00 WBC 23.0 H (4.0-10.5) K/mm3 RBC 5.08 (4.1-5.4) M/mm3 Hgb 16.6 H (12.0-16.0) gm/dl Hct 49.3 H (35-47) % MCV 97.0 (78-100) fl MCH 32.7 H (26-32) pg MCHC 33.7 (32-36) g/dl RDW 14.5 H (11.5-14.0) % Plt Count 270 (150-450) K/mm3 MPV 11.5 H (7.5-11.0) fl Gran % 88.5 H (36.0-66.0) % Eos # (Auto) 0.03 (0-0.5) Absolute Lymphs (auto) 1.08 (1.0-4.6) Absolute Monos (auto) 1.51 H (0.0-1.3) Lymphocytes % 4.7 L (24.0-44.0) % Monocytes % 6.6 (0.0-12.0) % Eosinophils % 0.1 (0.00-5.0) % Basophils % 0.1 (0.0-0.4) % Absolute Granulocytes 20.40 H (1.4-6.9) Segmented Neutrophils 89 H (36.0-66.0) % Lymphocytes (Manual) 5 L (24-44) % Monocytes (Manual) 5 (0.0-12.0) % Eosinophils (Manual) 1 (0.00-3.0) % Basophils # 0.02 (0-0.4) Platelet Estimate NORMAL (NORMAL) RBC Morphology NORMAL Sodium 140 (137-145) mmol/L Potassium 3.7 (3.5-5.1) mmol/L Chloride 103 (98-107) mmol/L Carbon Dioxide 23 (22-30) mmol/L Anion Gap 17.2 H (5-15) MEQ/L BUN 25 H (7-17) mg/dL Creatinine 1.53 H (0.52-1.04) mg/dL Estimated GFR 35.1 ML/MIN Glucose 106 (74-106) mg/dL POC Glucometer 123 H (74 to 106) mg/dL Calcium 9.4 (8.4-10.2) mg/dL Total Bilirubin 1.10 (0.2-1.3) mg/dL AST 28 (14-36) U/L ALT 17 (0-35) U/L Alkaline Phosphatase 159 H (38-126) U/L Troponin I (0.000-0.034) ng/mL NT-Pro-B Natriuret Pep 278 (0-1800) pg/mL Serum Total Protein 7.2 (6.3-8.2) g/dL Albumin 4.2 (3.5-5.0) g/dL Lipase 77 (23-300) U/L 05/21/21 05/21/21 Range/Units 14:00 13:43 WBC (4.0-10.5) K/mm3 RBC (4.1-5.4) M/mm3 Hgb (12.0-16.0) gm/dl Hct (35-47) % MCV (78-100) fl MCH (26-32) pg MCHC (32-36) g/dl RDW (11.5-14.0) % Plt Count (150-450) K/mm3 MPV (7.5-11.0) fl Gran % (36.0-66.0) % Eos # (Auto) (0-0.5) Absolute Lymphs (auto) (1.0-4.6) Absolute Monos (auto) (0.0-1.3) Lymphocytes % (24.0-44.0) % Monocytes % (0.0-12.0) % Eosinophils % (0.00-5.0) % Basophils % (0.0-0.4) % Absolute Granulocytes (1.4-6.9) Segmented Neutrophils (36.0-66.0) % Lymphocytes (Manual) (24-44) % Monocytes (Manual) (0.0-12.0) % Eosinophils (Manual) (0.00-3.0) % Basophils # (0-0.4) Platelet Estimate (NORMAL) RBC Morphology Sodium (137-145) mmol/L Potassium (3.5-5.1) mmol/L Chloride (98-107) mmol/L Carbon Dioxide (22-30) mmol/L Anion Gap (5-15) MEQ/L BUN (7-17) mg/dL Creatinine (0.52-1.04) mg/dL Estimated GFR ML/MIN Glucose (74-106) mg/dL POC Glucometer 104 (74 to 106) mg/dL Calcium (8.4-10.2) mg/dL Total Bilirubin (0.2-1.3) mg/dL AST (14-36) U/L ALT (0-35) U/L Alkaline Phosphatase (38-126) U/L Troponin I < 0.012 (0.000-0.034) ng/mL NT-Pro-B Natriuret Pep (0-1800) pg/mL Serum Total Protein (6.3-8.2) g/dL Albumin (3.5-5.0) g/dL Lipase (23-300) U/L - Progress Progress: improved Progress Note: 05/21/21 14:01 differential diagnosis includes kidney stone, compression fracture, infection, UTI, triple AAA, NH, medication overdose - basic labs including: CBC, lipase, CMP, UA, troponin, EKG, BMP - insert IV for fluids, pain meds, nausea control - consider imaging: CT ab/pelvis, CXR 05/21/21 17:43 Patient had continued nausea and vomiting. CT was read as no obstruction. Fecal impactation. Patient did have lots of diarrhea. This was after the CT scan. Patient started vomiting again. Given all of this I do believe patient patient will need to be admitted to the hospital for continued close monitoring of blood sugars, fluids, Zofran. We discussed with hospital team. They will admit the patient. After reviewing labs, appropriate imaging, discussion with patient and family. We decided the patient should be admitted to the hospital. I called the inpatient team discussed history, physical and results with them in detail. We decided on the plan of action and admission to [facility]. We agreed on appropriate consults and who would call them. Will see patient in: hospital (observation) Counseled pt/family regarding: lab results, diagnosis, need for follow-up, rad results - Departure Departure Disposition: Observation Clinical Impression: Constipation, Low blood sugar Condition: Stable Critical Care Time: No Referrals: JUNAID MASSEY DO [Primary Care Provider] - Follow up/PCP as directed Instructions: Low Blood Sugar, Adult (DC)
[2021-05-21 14:09] LABS: Basophil (Absolute #) 0.02 (0-0.4); Eosinophil % 0.1 % (0.00-5.0); Eosinophil (Absolute #) 0.03 (0-0.5); Hematocrit 49.3 % (35-47); Hemoglobin 16.6 gm/dl (12.0-16.0); Lymphocyte (Absolute #) 1.08 (1.0-4.6); Lymphocytes % 4.7 % (24.0-44.0); Mean Corpuscular Hemoglobin 32.7 pg (26-32); Mean Corpuscular Hgb Concent. 33.7 g/dl (32-36); Mean Platelet Volume 11.5 fl (7.5-11.0); Monocyte (Absolute #) 1.51 (0.0-1.3); Monocytes % 6.6 % (0.0-12.0); Neutrophil % 88.5 % (36.0-66.0); Platelet Count 270 K/mm3 (150-450); Red Blood Count 5.08 M/mm3 (4.1-5.4); Red Cell Distribution Width 14.5 % (11.5-14.0)
[2021-05-21 14:33] LABS: ALBUMIN 4.2 g/dL (3.5-5.0); ANION GAP 17.2 MEQ/L (5-15); BILIRUBIN,TOTAL 1.1 mg/dL (0.2-1.3); Calcium 9.4 mg/dL (8.4-10.2); Creatinine 1 1.53 mg/dL (0.52-1.04); EST GLOMERULAR FILTRATION RATE 35.1 ML/MIN; Potassium 3.7 mmol/L (3.5-5.1); Total Protein 7.2 g/dL (6.3-8.2)
--- NOTE | 2021-05-21 14:34 | XRAY ---
Indication: Free air under diaphragm. Comparison: November 02, 2019. AP/lateral chest remains hyperinflated and clear again with incidental tiny calcified granulomas. Heart not enlarged. Bony thorax intact again with osteopenia, degenerative changes, and old left rib fractures. No subdiaphragmatic free air. Impression: Continued nonacute chest with chronic features.
[2021-05-21 14:50] LABS: Eosinophil 1 % (0.00-3.0); Lymphocytes 5 % (24-44); Monocyte 5 % (0.0-12.0); Neutrophils 89 % (36.0-66.0); Total Cells Counted 100
[2021-05-21] MEDS ORDERED: Zofran 4 MG/2 ML VIAL ONE (14:53)
[2021-05-21 14:54] LABS: Platelet Estimate NORMAL (NORMAL)
[2021-05-21] MEDS: Sodium Chloride 0.9% 1000 ML 1,000 ML IV SCH ×2 (18:16→20:57)
[2021-05-21 18:41] LABS: INFLUENZA A NEGATIVE (NEGATIVE); INFLUENZA B NEGATIVE (NEGATIVE); RESPIRATORY SYNCTIAL VIRUS NEGATIVE (Negative); SARS-CoV-2 Xpert Express NEGATIVE (NEGATIVE)
[2021-05-21] MEDS ORDERED: Hydromorphone 1 mg/ml Injection IV ONE (18:46)
[2021-05-21] MEDS ORDERED: Hydromorphone 1 mg/ml Injection ONE (18:50)
[2021-05-21] MEDS: Zofran 4 MG/2 ML VIAL IV PRN (20:57)
--- NOTE | 2021-05-21 21:58 | PCM.HP ---
History of Present Illness - Chief Complaint Chief Complaint: constipation History of Present Illness: is a 75 year old female.Patient is here stating that she has constipation. States she has not had a bowel movement and 6 days. However, upon further questioning she states that she has had very small amounts of stool. She has no falls or other trauma. She states that she was straining so hard today that she dropped her blood sugar. She is on several different blood sugar medication. She has no fever or chills. Patient states that her abdominal pain has mostly gone away since being here. When EMS got to the patient her blood sugar was 50. However is since improved on a D5 drip she is at 104 at this point in time. Timing/Duration: week(s) Severity: moderate Modifying Factors: Improves With: other Associated Symptoms: abdominal pain, other (Constipation) - Review of Systems Constitutional: No Fever, No Chills Eyes: No Symptoms Ears, Nose, & Throat: No Symptoms Respiratory: No Cough, No Short Of Breath Cardiac: No Chest Pain, No Edema, No Syncope Abdominal/Gastrointestinal: Constipation, No Abdominal Pain, No Nausea, No Vomiting, No Diarrhea Genitourinary Symptoms: No Dysuria Musculoskeletal: No Back Pain, No Neck Pain Skin: No Rash Neurological: No Dizziness, No Focal Weakness, No Sensory Changes Psychological: No Symptoms Endocrine: No Symptoms Hematologic/Lymphatic: No Symptoms Immunological/Allergic: No Symptoms Medications & Allergies Home Medications: Home Medication List Allopurinol 300 mg [Zyloprim 300 mg] 300 mg PO DAILY 10/08/15 [History Confirmed 05/21/21] Gabapentin 300 mg PO DAILY 10/08/15 [History Confirmed 05/21/21] Isosorbide Mononitrate 60 mg [Imdur 60MG] 100 mg PO DAILY 10/08/15 [History Confirmed 05/21/21] Metoprolol Succinate 50 mg [Toprol Xl 50 MG] 50 mg PO BID 10/08/15 [History Confirmed 05/21/21] Omeprazole [Prilosec] 40 mg PO DAILY 10/08/15 [History Confirmed 05/21/21] Aspirin EC 81 mg [Ecotrin 81 mg] 81 mg PO DAILY 90 Days #30 tablet 11/02/19 [Rx Confirmed 05/21/21] Furosemide 40 mg [Lasix 40 MG] 80 mg PO DAILY 11/02/19 [History Confirmed 05/21/21] Levothyroxine Sodium 100 Mcg [Synthroid 100 Mcg] 100 mcg PO DAILY 11/02/19 [History Confirmed 05/21/21] Mifepristone [Korlym] 300 mg PO 3XW 11/02/19 [History Confirmed 05/21/21] Amlodipine Besylate 1.5 mg DAILY 08/23/20 [History Confirmed 05/21/21] Atorvastatin Calcium [Lipitor] 1 ea DAILY 08/23/20 [History Confirmed 05/21/21] Famotidine 20 mg [Pepcid 20 MG] 1 ea DAILY 08/23/20 [History Confirmed 05/21/21] Insulin Aspart [Novolog] 1 unit IM DAILY 08/23/20 [History] Insulin Aspart [Novolog] 25 units TID 08/23/20 [History Confirmed 05/21/21] Insulin Detemir [Levemir] 40 units DAILY 08/23/20 [History Confirmed 05/21/21] Allergies/Adverse Reactions: Allergies Allergy/AdvReac Type Severity Reaction Status Date / Time dulaglutide [From [facility]] Allergy Stomach Verified 08/23/20 14:16 Pain walnut Allergy Verified 08/23/20 14:16 - Past Medical History Past Medical History: Yes Neurological History: Stroke ENT History: Cataracts, Macular Degeneration Cardiac History: Hypertension, Myocardial Infarction (ND) Respiratory History: No Pertinent History Endocrine Medical History: Adrenal Insufficiency, Diabetes Type II, Hypothyroidism Musculoskelatal History: Arthritis GI Medical History: Gallbladder Disease, Hemorrhoids, Hernia History: No Pertinent History, Renal Disease Pyscho-Social History: No Pertinent History, Depression Reproductive Disorders: No Pertinent History Comment: STAGE III KIDNEY, SOB WITH EXERTION, ND 10 YEARS AGO, - Female History Are you now?: No - Past Surgical History Past Surgical History: Yes Neuro Surgical History: No Pertinent History Cardiac History: Cardiac Catheterization Respiratory Surgery: No Pertinent History GI Surgical History: Cholecystectomy Genitourinary Surgical Hx: No Pertinent History Musculskeletal Surgical Hx: Joint Replacement, Orthopedic Surgery Female Surgical History: Hysterectomy Other Surgical History: guzman. knee replacements, rib fx. ,guzman feet spurs removed - Social History Smoking Status: Never smoker Exposure to second hand smoke: Yes Alcohol: None Drug Use: none - Physical Exam Vital Signs: Vital Signs - 24 hr Temp Pulse Resp BP Pulse Ox 05/21/21 20:17 98.6 F 74 12 158/91 94 L 05/21/21 17:58 93 L 05/21/21 17:02 97.1 F 81 20 158/91 94 L 05/21/21 16:05 82 17 146/81 94 L 05/21/21 15:25 68 117/60 92 L 05/21/21 13:34 97.1 F 77 18 144/75 93 L General Appearance: no apparent distress, alert Neurologic Exam: alert, oriented x 3, cooperative, normal mood/affect, nml cerebellar function, nml station & gait, sensation nml, No motor deficits Eye Exam: PERRL/EOMI, eyes nml inspection Ears, Nose, Throat Exam: normal ENT inspection, TMs normal, pharynx normal, moist mucous membranes Neck Exam: normal inspection, non-tender, supple, full range of motion Respiratory Exam: normal breath sounds, lungs clear, No respiratory distress Cardiovascular Exam: regular rate/rhythm, normal heart sounds, normal peripheral pulses Gastrointestinal/Abdomen Exam: soft, normal bowel sounds, No tenderness, No mass Back Exam: normal inspection, normal range of motion, No CVA tenderness, No vertebral tenderness Extremity Exam: normal inspection, normal range of motion, pelvis stable Skin Exam: normal color, warm, dry, No rash Lymphatic Exam: No adenopathy Results - Labs Lab/Micro Results: Lab Results-Last 24 Hours 05/21/21 05/21/21 05/21/21 Range/Units 13:43 14:00 14:00 WBC 23.0 H (4.0-10.5) K/mm3 RBC 5.08 (4.1-5.4) M/mm3 Hgb 16.6 H (12.0-16.0) gm/dl Hct 49.3 H (35-47) % MCV 97.0 (78-100) fl MCH 32.7 H (26-32) pg MCHC 33.7 (32-36) g/dl RDW 14.5 H (11.5-14.0) % Plt Count 270 (150-450) K/mm3 MPV 11.5 H (7.5-11.0) fl Gran % 88.5 H (36.0-66.0) % Eos # (Auto) 0.03 (0-0.5) Absolute Lymphs (auto) 1.08 (1.0-4.6) Absolute Monos (auto) 1.51 H (0.0-1.3) Lymphocytes % 4.7 L (24.0-44.0) % Monocytes % 6.6 (0.0-12.0) % Eosinophils % 0.1 (0.00-5.0) % Basophils % 0.1 (0.0-0.4) % Absolute Granulocytes 20.40 H (1.4-6.9) Segmented Neutrophils 89 H (36.0-66.0) % Lymphocytes (Manual) 5 L (24-44) % Monocytes (Manual) 5 (0.0-12.0) % Eosinophils (Manual) 1 (0.00-3.0) % Basophils # 0.02 (0-0.4) Platelet Estimate NORMAL (NORMAL) RBC Morphology NORMAL Sodium (137-145) mmol/L Potassium (3.5-5.1) mmol/L Chloride (98-107) mmol/L Carbon Dioxide (22-30) mmol/L Anion Gap (5-15) MEQ/L BUN (7-17) mg/dL Creatinine (0.52-1.04) mg/dL Estimated GFR ML/MIN Glucose (74-106) mg/dL POC Glucometer 104 (74 to 106) mg/dL Calcium (8.4-10.2) mg/dL Total Bilirubin (0.2-1.3) mg/dL AST (14-36) U/L ALT (0-35) U/L Alkaline Phosphatase (38-126) U/L Troponin I < 0.012 (0.000-0.034) ng/mL NT-Pro-B Natriuret Pep (0-1800) pg/mL Serum Total Protein (6.3-8.2) g/dL Albumin (3.5-5.0) g/dL Lipase (23-300) U/L Influenza Type A Ag (NEGATIVE) Influenza Type B Ag (NEGATIVE) RSV (PCR) (Negative) SARS-CoV-2 (PCR) (NEGATIVE) 05/21/21 05/21/21 05/21/21 Range/Units 14:00 15:58 17:27 WBC (4.0-10.5) K/mm3 RBC (4.1-5.4) M/mm3 Hgb (12.0-16.0) gm/dl Hct (35-47) % MCV (78-100) fl MCH (26-32) pg MCHC (32-36) g/dl RDW (11.5-14.0) % Plt Count (150-450) K/mm3 MPV (7.5-11.0) fl Gran % (36.0-66.0) % Eos # (Auto) (0-0.5) Absolute Lymphs (auto) (1.0-4.6) Absolute Monos (auto) (0.0-1.3) Lymphocytes % (24.0-44.0) % Monocytes % (0.0-12.0) % Eosinophils % (0.00-5.0) % Basophils % (0.0-0.4) % Absolute Granulocytes (1.4-6.9) Segmented Neutrophils (36.0-66.0) % Lymphocytes (Manual) (24-44) % Monocytes (Manual) (0.0-12.0) % Eosinophils (Manual) (0.00-3.0) % Basophils # (0-0.4) Platelet Estimate (NORMAL) RBC Morphology Sodium 140 (137-145) mmol/L Potassium 3.7 (3.5-5.1) mmol/L Chloride 103 (98-107) mmol/L Carbon Dioxide 23 (22-30) mmol/L Anion Gap 17.2 H (5-15) MEQ/L BUN 25 H (7-17) mg/dL Creatinine 1.53 H (0.52-1.04) mg/dL Estimated GFR 35.1 ML/MIN Glucose 106 (74-106) mg/dL POC Glucometer 123 H (74 to 106) mg/dL Calcium 9.4 (8.4-10.2) mg/dL Total Bilirubin 1.10 (0.2-1.3) mg/dL AST 28 (14-36) U/L ALT 17 (0-35) U/L Alkaline Phosphatase 159 H (38-126) U/L Troponin I < 0.012 (0.000-0.034) ng/mL NT-Pro-B Natriuret Pep 278 (0-1800) pg/mL Serum Total Protein 7.2 (6.3-8.2) g/dL Albumin 4.2 (3.5-5.0) g/dL Lipase 77 (23-300) U/L Influenza Type A Ag (NEGATIVE) Influenza Type B Ag (NEGATIVE) RSV (PCR) (Negative) SARS-CoV-2 (PCR) (NEGATIVE) 05/21/21 05/21/21 Range/Units 17:58 19:55 WBC (4.0-10.5) K/mm3 RBC (4.1-5.4) M/mm3 Hgb (12.0-16.0) gm/dl Hct (35-47) % MCV (78-100) fl MCH (26-32) pg MCHC (32-36) g/dl RDW (11.5-14.0) % Plt Count (150-450) K/mm3 MPV (7.5-11.0) fl Gran % (36.0-66.0) % Eos # (Auto) (0-0.5) Absolute Lymphs (auto) (1.0-4.6) Absolute Monos (auto) (0.0-1.3) Lymphocytes % (24.0-44.0) % Monocytes % (0.0-12.0) % Eosinophils % (0.00-5.0) % Basophils % (0.0-0.4) % Absolute Granulocytes (1.4-6.9) Segmented Neutrophils (36.0-66.0) % Lymphocytes (Manual) (24-44) % Monocytes (Manual) (0.0-12.0) % Eosinophils (Manual) (0.00-3.0) % Basophils # (0-0.4) Platelet Estimate (NORMAL) RBC Morphology Sodium (137-145) mmol/L Potassium (3.5-5.1) mmol/L Chloride (98-107) mmol/L Carbon Dioxide (22-30) mmol/L Anion Gap (5-15) MEQ/L BUN (7-17) mg/dL Creatinine (0.52-1.04) mg/dL Estimated GFR ML/MIN Glucose (74-106) mg/dL POC Glucometer (74 to 106) mg/dL Calcium (8.4-10.2) mg/dL Total Bilirubin (0.2-1.3) mg/dL AST (14-36) U/L ALT (0-35) U/L Alkaline Phosphatase (38-126) U/L Troponin I < 0.012 (0.000-0.034) ng/mL NT-Pro-B Natriuret Pep (0-1800) pg/mL Serum Total Protein (6.3-8.2) g/dL Albumin (3.5-5.0) g/dL Lipase (23-300) U/L Influenza Type A Ag NEGATIVE (NEGATIVE) Influenza Type B Ag NEGATIVE (NEGATIVE) RSV (PCR) NEGATIVE (Negative) SARS-CoV-2 (PCR) NEGATIVE (NEGATIVE) - Radiology Impressions Radiology Exams & Impressions: Radiology Procedures Category Date Time Status ABDOMEN AND PELVIS W/0 CONTRAS [CT] Stat Exams 05/21/21 15:08 Taken CHEST 2 VIEWS (PA AND LAT) Stat Exams 05/21/21 13:45 Completed CHEST WITHOUT CONTRAST [CT] Stat Exams 05/21/21 15:07 Taken Assessment/Plan (1) Constipation Current Visit: Yes Status: Acute Qualifiers: Constipation type: slow transit constipation Qualified Code(s): K59.01 - Slow transit constipation Code(s): K59.00 - CONSTIPATION, UNSPECIFIED
--- NOTE | 2021-05-21 23:27 | XRAY ---
Indication: Nausea, vomiting, and constipation. Multiple contiguous axial images obtained through the chest without contrast. Comparison: None Lungs are inflated with tiny right lung calcified granulomas and minimal scattered fibrosis/scarring. No suspicious pulmonary mass, infiltrate, consolidation, or effusion. Heart not enlarged. Aorta is mildly arteriosclerotic without aneurysm. Tiny right hilar calcified nodes. Small hiatal hernia with esophageal fluid up to level of the vocal cords favoring gastroesophageal reflux. Bony thorax intact with osteopenia, flowing osteophytes throughout the spine, and old left rib fractures. CT abdomen/pelvis reported separately. Impression: 1. Scattered fibrosis/scarring, small hiatal hernia with gastroesophageal reflux, chronic bony findings, and old granulomatous disease. 2. Remaining CT chest without contrast exam is negative.
--- NOTE | 2021-05-21 23:32 | XRAY ---
Indication: Nausea, vomiting, and constipation. Multiple contiguous axial images obtained through the abdomen and pelvis without contrast. Comparison: November 21, 2012. CT chest reported separately. Noncontrasted stomach and bowel loops appear nonobstructed. Appendix not visualized. There is mild diffuse fecal debris throughout more than before along with new mild rectal impaction. Cholecystectomy and hysterectomy reported. No free fluid/air. Stable left renal cortical thinning/scarring, nonobstructing bilateral renal micro-calculi, and 3.5 cm left adrenal adenoma. Remaining liver, pancreas, spleen, adrenal glands, kidneys, ureters, and bladder are unremarkable for noncontrast exam. Mild scattered aortoiliac calcifications without AAA. Osseous structures intact again with osteopenia, mild multilevel degenerative spondylosis, and minimal 2 mm L4 spondylolisthesis. Impression: 1. Mild diffuse fecal stasis with rectal impaction. 2. Incidental left renal cortical thinning/scarring, nonobstructing bilateral renal micro-calculi, left renal adenoma, and chronic bony findings.
[2021-05-22] MEDS ORDERED: Sodium Chloride 0.9% 1000 ML 1,000 ML ONE (06:08)
[2021-05-22] MEDS: Sodium Chloride 0.9% 1000 ML 1,000 ML IV SCH ×2 (06:12→16:25)
[2021-05-22 06:19] LABS: Hematocrit 44.9 % (35-47); Hemoglobin 14.9 gm/dl (12.0-16.0); Mean Corpuscular Hemoglobin 32.5 pg (26-32); Mean Corpuscular Hgb Concent. 33.2 g/dl (32-36); Mean Platelet Volume 11.8 fl (7.5-11.0); Platelet Count 278 K/mm3 (150-450); Red Blood Count 4.58 M/mm3 (4.1-5.4); Red Cell Distribution Width 14.7 % (11.5-14.0)
[2021-05-22 06:29] LABS: White Blood Count 25.6 K/mm3 (4.0-10.5)
[2021-05-22 06:33] LABS: ANION GAP 13.6 MEQ/L (5-15); Calcium 7.9 mg/dL (8.4-10.2); Creatinine 1 1.65 mg/dL (0.52-1.04); EST GLOMERULAR FILTRATION RATE 32.1 ML/MIN; Potassium 4.2 mmol/L (3.5-5.1)
[2021-05-22] MEDS ORDERED: [UNRECOGNIZED DRUG - OTHER] PO SCH (08:00)
[2021-05-22] MEDS: Zofran 4 MG/2 ML VIAL IV PRN (08:49)
[2021-05-22 09:09] LABS: Lymphocytes 7 % (24-44); Monocyte 4 % (0.0-12.0); Neutrophils 89 % (36.0-66.0); Platelet Estimate NORMAL (NORMAL); Total Cells Counted 100; Toxic Granulation 1+
[2021-05-22] MEDS: Protonix 40MG Tablet PO SCH (09:44)
[2021-05-22] MEDS: ZOCOR 20MG PO SCH (09:46)
[2021-05-22] MEDS: ECOTRIN 81 MG PO SCH (09:46)
[2021-05-22] MEDS: Pepcid 20 MG PO SCH (09:46)
[2021-05-22] MEDS: Imdur 60MG PO SCH (09:47)
[2021-05-22] MEDS: ZYLOPRIM 300 MG PO SCH (09:47)
[2021-05-22] MEDS: HUMALOG SQ SCH ×4 (09:47→21:37)
[2021-05-22] MEDS: NORVASC 5 MG PO SCH (09:47)
[2021-05-22] MEDS: SYNTHROID 100 MCG PO SCH (09:47)
[2021-05-22] MEDS: Toprol Xl 50 MG PO SCH (09:47)
[2021-05-22] MEDS: Lasix 40 MG PO SCH (09:47)
[2021-05-22] MEDS: NEURONTIN 300 MG PO SCH (09:48)
--- NOTE | 2021-05-22 09:56 | PCM.NOTE ---
Date and Time: 05/22/21954 Subjective Assessment: doing better. constipation resolved - Review of Systems Constitutional: No Fever, No Chills Eyes: No Symptoms Ears, Nose, & Throat: No Symptoms Respiratory: No Cough, No Short Of Breath Cardiac: No Chest Pain, No Edema, No Syncope Abdominal/Gastrointestinal: No Abdominal Pain, No Nausea, No Vomiting, No Diarrhea Genitourinary Symptoms: No Dysuria Musculoskeletal: No Back Pain, No Neck Pain Skin: No Rash Neurological: No Dizziness, No Focal Weakness, No Sensory Changes Psychological: No Symptoms Endocrine: No Symptoms Hematologic/Lymphatic: No Symptoms Immunological/Allergic: No Symptoms Objective Exam General Appearance: no apparent distress, alert Neurologic Exam: alert, oriented x 3, cooperative, normal mood/affect, nml cerebellar function, sensation nml, No motor deficits Skin Exam: normal color, warm, dry Eye Exam: PERRL, EOMI, eyes nml inspection Ears, Nose, Throat Exam: normal ENT inspection, pharynx normal, moist mucous membranes Neck Exam: normal inspection, non-tender, supple, full range of motion Respiratory Exam: normal breath sounds, lungs clear, No respiratory distress Cardiovascular Exam: regular rate/rhythm, normal heart sounds Gastrointestinal/Abdomen Exam: soft, No tenderness, No mass Extremity Exam: normal inspection, normal range of motion Back Exam: normal inspection, normal range of motion, No CVA tenderness, No vertebral tenderness Pelvic Exam: deferred Rectal Exam: deferred OBJECTIVE DATA Vital Signs: Vital Signs - 24 hr Temp Pulse Resp BP BP Pulse Ox 05/22/21 07:29 97.7 F 76 20 147/71 90 L 05/22/21 04:00 97.8 F 67 20 128/63 95 05/22/21 00:00 97.7 F 72 16 125/75 94 L 05/21/21 20:17 98.6 F 74 12 158/91 94 L 05/21/21 17:58 93 L 05/21/21 17:02 97.1 F 81 20 158/91 94 L 05/21/21 16:05 82 17 146/81 94 L 05/21/21 15:25 68 117/60 92 L 05/21/21 13:34 97.1 F 77 18 144/75 93 L Pain Assessment - Last Documented Pain Intensity 0 Pain Scale Used 0-10 Pain Scale Intake and Output: Intake & Output 05/19/21 05/20/21 05/21/21 05/22/21 11:59 11:59 11:59 11:59 Intake Total 100 Balance 100 Weight 117 kg Lab Results: Lab Results-Last 24 Hours 05/21/21 05/21/21 05/21/21 Range/Units 13:43 14:00 14:00 WBC 23.0 H (4.0-10.5) K/mm3 RBC 5.08 (4.1-5.4) M/mm3 Hgb 16.6 H (12.0-16.0) gm/dl Hct 49.3 H (35-47) % MCV 97.0 (78-100) fl MCH 32.7 H (26-32) pg MCHC 33.7 (32-36) g/dl RDW 14.5 H (11.5-14.0) % Plt Count 270 (150-450) K/mm3 MPV 11.5 H (7.5-11.0) fl Gran % 88.5 H (36.0-66.0) % Eos # (Auto) 0.03 (0-0.5) Absolute Lymphs (auto) 1.08 (1.0-4.6) Absolute Monos (auto) 1.51 H (0.0-1.3) Lymphocytes % 4.7 L (24.0-44.0) % Monocytes % 6.6 (0.0-12.0) % Eosinophils % 0.1 (0.00-5.0) % Basophils % 0.1 (0.0-0.4) % Absolute Granulocytes 20.40 H (1.4-6.9) Segmented Neutrophils 89 H (36.0-66.0) % Lymphocytes (Manual) 5 L (24-44) % Monocytes (Manual) 5 (0.0-12.0) % Eosinophils (Manual) 1 (0.00-3.0) % Basophils # 0.02 (0-0.4) Toxic Granulation Platelet Estimate NORMAL (NORMAL) RBC Morphology NORMAL Sodium (137-145) mmol/L Potassium (3.5-5.1) mmol/L Chloride (98-107) mmol/L Carbon Dioxide (22-30) mmol/L Anion Gap (5-15) MEQ/L BUN (7-17) mg/dL Creatinine (0.52-1.04) mg/dL Estimated GFR ML/MIN Glucose (74-106) mg/dL POC Glucometer 104 (74 to 106) mg/dL Calcium (8.4-10.2) mg/dL Total Bilirubin (0.2-1.3) mg/dL AST (14-36) U/L ALT (0-35) U/L Alkaline Phosphatase (38-126) U/L Troponin I < 0.012 (0.000-0.034) ng/mL NT-Pro-B Natriuret Pep (0-1800) pg/mL Serum Total Protein (6.3-8.2) g/dL Albumin (3.5-5.0) g/dL Lipase (23-300) U/L Influenza Type A Ag (NEGATIVE) Influenza Type B Ag (NEGATIVE) RSV (PCR) (Negative) SARS-CoV-2 (PCR) (NEGATIVE) 05/21/21 05/21/21 05/21/21 Range/Units 14:00 15:58 17:27 WBC (4.0-10.5) K/mm3 RBC (4.1-5.4) M/mm3 Hgb (12.0-16.0) gm/dl Hct (35-47) % MCV (78-100) fl MCH (26-32) pg MCHC (32-36) g/dl RDW (11.5-14.0) % Plt Count (150-450) K/mm3 MPV (7.5-11.0) fl Gran % (36.0-66.0) % Eos # (Auto) (0-0.5) Absolute Lymphs (auto) (1.0-4.6) Absolute Monos (auto) (0.0-1.3) Lymphocytes % (24.0-44.0) % Monocytes % (0.0-12.0) % Eosinophils % (0.00-5.0) % Basophils % (0.0-0.4) % Absolute Granulocytes (1.4-6.9) Segmented Neutrophils (36.0-66.0) % Lymphocytes (Manual) (24-44) % Monocytes (Manual) (0.0-12.0) % Eosinophils (Manual) (0.00-3.0) % Basophils # (0-0.4) Toxic Granulation Platelet Estimate (NORMAL) RBC Morphology Sodium 140 (137-145) mmol/L Potassium 3.7 (3.5-5.1) mmol/L Chloride 103 (98-107) mmol/L Carbon Dioxide 23 (22-30) mmol/L Anion Gap 17.2 H (5-15) MEQ/L BUN 25 H (7-17) mg/dL Creatinine 1.53 H (0.52-1.04) mg/dL Estimated GFR 35.1 ML/MIN Glucose 106 (74-106) mg/dL POC Glucometer 123 H (74 to 106) mg/dL Calcium 9.4 (8.4-10.2) mg/dL Total Bilirubin 1.10 (0.2-1.3) mg/dL AST 28 (14-36) U/L ALT 17 (0-35) U/L Alkaline Phosphatase 159 H (38-126) U/L Troponin I < 0.012 (0.000-0.034) ng/mL NT-Pro-B Natriuret Pep 278 (0-1800) pg/mL Serum Total Protein 7.2 (6.3-8.2) g/dL Albumin 4.2 (3.5-5.0) g/dL Lipase 77 (23-300) U/L Influenza Type A Ag (NEGATIVE) Influenza Type B Ag (NEGATIVE) RSV (PCR) (Negative) SARS-CoV-2 (PCR) (NEGATIVE) 05/21/21 05/21/21 05/22/21 Range/Units 17:58 19:55 05:30 WBC 25.6 H* (4.0-10.5) K/mm3 RBC 4.58 (4.1-5.4) M/mm3 Hgb 14.9 (12.0-16.0) gm/dl Hct 44.9 (35-47) % MCV 98.0 (78-100) fl MCH 32.5 H (26-32) pg MCHC 33.2 (32-36) g/dl RDW 14.7 H (11.5-14.0) % Plt Count 278 (150-450) K/mm3 MPV 11.8 H (7.5-11.0) fl Gran % (36.0-66.0) % Eos # (Auto) (0-0.5) Absolute Lymphs (auto) (1.0-4.6) Absolute Monos (auto) (0.0-1.3) Lymphocytes % (24.0-44.0) % Monocytes % (0.0-12.0) % Eosinophils % (0.00-5.0) % Basophils % (0.0-0.4) % Absolute Granulocytes (1.4-6.9) Segmented Neutrophils 89 H (36.0-66.0) % Lymphocytes (Manual) 7 L (24-44) % Monocytes (Manual) 4 (0.0-12.0) % Eosinophils (Manual) (0.00-3.0) % Basophils # (0-0.4) Toxic Granulation 1+ Platelet Estimate NORMAL (NORMAL) RBC Morphology NORMAL Sodium (137-145) mmol/L Potassium (3.5-5.1) mmol/L Chloride (98-107) mmol/L Carbon Dioxide (22-30) mmol/L Anion Gap (5-15) MEQ/L BUN (7-17) mg/dL Creatinine (0.52-1.04) mg/dL Estimated GFR ML/MIN Glucose (74-106) mg/dL POC Glucometer (74 to 106) mg/dL Calcium (8.4-10.2) mg/dL Total Bilirubin (0.2-1.3) mg/dL AST (14-36) U/L ALT (0-35) U/L Alkaline Phosphatase (38-126) U/L Troponin I < 0.012 (0.000-0.034) ng/mL NT-Pro-B Natriuret Pep (0-1800) pg/mL Serum Total Protein (6.3-8.2) g/dL Albumin (3.5-5.0) g/dL Lipase (23-300) U/L Influenza Type A Ag NEGATIVE (NEGATIVE) Influenza Type B Ag NEGATIVE (NEGATIVE) RSV (PCR) NEGATIVE (Negative) SARS-CoV-2 (PCR) NEGATIVE (NEGATIVE) 05/22/21 Range/Units 05:30 WBC (4.0-10.5) K/mm3 RBC (4.1-5.4) M/mm3 Hgb (12.0-16.0) gm/dl Hct (35-47) % MCV (78-100) fl MCH (26-32) pg MCHC (32-36) g/dl RDW (11.5-14.0) % Plt Count (150-450) K/mm3 MPV (7.5-11.0) fl Gran % (36.0-66.0) % Eos # (Auto) (0-0.5) Absolute Lymphs (auto) (1.0-4.6) Absolute Monos (auto) (0.0-1.3) Lymphocytes % (24.0-44.0) % Monocytes % (0.0-12.0) % Eosinophils % (0.00-5.0) % Basophils % (0.0-0.4) % Absolute Granulocytes (1.4-6.9) Segmented Neutrophils (36.0-66.0) % Lymphocytes (Manual) (24-44) % Monocytes (Manual) (0.0-12.0) % Eosinophils (Manual) (0.00-3.0) % Basophils # (0-0.4) Toxic Granulation Platelet Estimate (NORMAL) RBC Morphology Sodium 136 L (137-145) mmol/L Potassium 4.2 (3.5-5.1) mmol/L Chloride 103 (98-107) mmol/L Carbon Dioxide 24 (22-30) mmol/L Anion Gap 13.6 (5-15) MEQ/L BUN 32 H (7-17) mg/dL Creatinine 1.65 H (0.52-1.04) mg/dL Estimated GFR 32.1 ML/MIN Glucose 204 H (74-106) mg/dL POC Glucometer (74 to 106) mg/dL Calcium 7.9 L D (8.4-10.2) mg/dL Total Bilirubin (0.2-1.3) mg/dL AST (14-36) U/L ALT (0-35) U/L Alkaline Phosphatase (38-126) U/L Troponin I (0.000-0.034) ng/mL NT-Pro-B Natriuret Pep (0-1800) pg/mL Serum Total Protein (6.3-8.2) g/dL Albumin (3.5-5.0) g/dL Lipase (23-300) U/L Influenza Type A Ag (NEGATIVE) Influenza Type B Ag (NEGATIVE) RSV (PCR) (Negative) SARS-CoV-2 (PCR) (NEGATIVE) Radiology Exams: Radiology Procedures Category Date Time Status ABDOMEN AND PELVIS W/0 CONTRAS [CT] Stat Exams 05/21/21 15:08 Completed CHEST 2 VIEWS (PA AND LAT) Stat Exams 05/21/21 13:45 Completed CHEST WITHOUT CONTRAST [CT] Stat Exams 05/21/21 15:07 Completed Assessment/Plan (1) Constipation Current Visit: Yes Status: Acute Qualifiers: Constipation type: slow transit constipation Qualified Code(s): K59.01 - Slow transit constipation Code(s): K59.00 - CONSTIPATION, UNSPECIFIED
[2021-05-22] MEDS ORDERED: NON-FORMULARY ITEM (Omeprazole [Prilosec] 40 MG Cap) PO SCH (10:00)
[2021-05-22] MEDS ORDERED: NON-FORMULARY ITEM (Insulin Aspart [Novolog] 100 UNIT/ML Vial) SQ SCH ×2 (10:00)
[2021-05-22] MEDS ORDERED: NON-FORMULARY ITEM (Insulin Detemir [Levemir] 100 UNIT/ML Vial) SQ SCH (10:00)
[2021-05-22] MEDS ORDERED: Lantus Insulin SQ SCH (10:00)
[2021-05-22] MEDS ORDERED: LIPITOR 40MG PO SCH (10:00)
[2021-05-22] MEDS ORDERED: HUMALOG SQ PRN (10:12)
[2021-05-22] MEDS: ROCEPHIN 1 Gm-D5w 50 ml Bag** 1 G/50 ML IVPB IV SCH (10:38)
[2021-05-22] MEDS ORDERED: MEDICATION INTERVENTION MC SCH (11:00)
[2021-05-22] MEDS: Lantus Insulin SQ SCH (21:34)
[2021-05-23] MEDS: Sodium Chloride 0.9% 1000 ML 1,000 ML IV SCH ×3 (01:57→22:26)
--- NOTE | 2021-05-23 08:40 | PCM.NOTE ---
Date and Time: 05/23/21837 Subjective Assessment: doing better - Review of Systems Constitutional: No Fever, No Chills Eyes: No Symptoms Ears, Nose, & Throat: No Symptoms Respiratory: No Cough, No Short Of Breath Cardiac: No Chest Pain, No Edema, No Syncope Abdominal/Gastrointestinal: No Abdominal Pain, No Nausea, No Vomiting, No Diarrhea Genitourinary Symptoms: No Dysuria Musculoskeletal: No Back Pain, No Neck Pain Skin: No Rash Neurological: No Dizziness, No Focal Weakness, No Sensory Changes Psychological: No Symptoms Endocrine: No Symptoms Hematologic/Lymphatic: No Symptoms Immunological/Allergic: No Symptoms Objective Exam General Appearance: no apparent distress, alert Neurologic Exam: alert, oriented x 3, cooperative, normal mood/affect, nml cerebellar function, sensation nml, No motor deficits Skin Exam: normal color, warm, dry Eye Exam: PERRL, EOMI, eyes nml inspection Ears, Nose, Throat Exam: normal ENT inspection, pharynx normal, moist mucous membranes Neck Exam: normal inspection, non-tender, supple, full range of motion Respiratory Exam: normal breath sounds, lungs clear, No respiratory distress Cardiovascular Exam: regular rate/rhythm, normal heart sounds Gastrointestinal/Abdomen Exam: soft, No tenderness, No mass Extremity Exam: normal inspection, normal range of motion Back Exam: normal inspection, normal range of motion, No CVA tenderness, No vertebral tenderness Pelvic Exam: deferred Rectal Exam: deferred OBJECTIVE DATA Vital Signs: Vital Signs - 24 hr Temp Pulse Resp BP BP Pulse Ox 05/23/21 08:00 98.9 F 67 18 144/70 95 05/23/21 04:00 97.8 F 69 21 129/62 95 05/23/21 00:00 98.0 F 80 20 150/70 92 L 05/22/21 20:00 98.6 F 66 16 112/58 92 L 05/22/21 15:03 64 18 135/63 94 L 05/22/21 11:14 97.6 F 61 18 133/62 94 L Pain Assessment - Last Documented Pain Intensity 7 Pain Scale Used 0-10 Pain Scale Intake and Output: Intake & Output 05/20/21 05/21/21 05/22/21 05/23/21 11:59 11:59 11:59 11:59 Intake Total 100 700 Output Total 1100 Balance 100 -400 Weight 117 kg Lab Results: Lab Results-Last 24 Hours 05/22/21 05/22/21 05/22/21 Range/Units 05:30 12:23 16:04 Segmented Neutrophils 89 H (36.0-66.0) % Lymphocytes (Manual) 7 L (24-44) % Monocytes (Manual) 4 (0.0-12.0) % Toxic Granulation 1+ Platelet Estimate NORMAL (NORMAL) RBC Morphology NORMAL POC Glucometer 137 H 134 H (74 to 106) mg/dL 05/22/21 05/23/21 Range/Units 20:57 07:25 Segmented Neutrophils (36.0-66.0) % Lymphocytes (Manual) (24-44) % Monocytes (Manual) (0.0-12.0) % Toxic Granulation Platelet Estimate (NORMAL) RBC Morphology POC Glucometer 123 H 145 H (74 to 106) mg/dL Radiology Exams: Radiology Procedures Category Date Time Status ABDOMEN AND PELVIS W/0 CONTRAS [CT] Stat Exams 05/21/21 15:08 Completed CHEST 2 VIEWS (PA AND LAT) Stat Exams 05/21/21 13:45 Completed CHEST WITHOUT CONTRAST [CT] Stat Exams 05/21/21 15:07 Completed Assessment/Plan (1) Constipation Current Visit: Yes Status: Acute Qualifiers: Constipation type: slow transit constipation Qualified Code(s): K59.01 - Slow transit constipation Code(s): K59.00 - CONSTIPATION, UNSPECIFIED
[2021-05-23 08:48] LABS: ALBUMIN 3.2 g/dL (3.5-5.0); ANION GAP 9.6 MEQ/L (5-15); BILIRUBIN,TOTAL 0.7 mg/dL (0.2-1.3); Calcium 8.1 mg/dL (8.4-10.2); Creatinine 1 1.67 mg/dL (0.52-1.04); EST GLOMERULAR FILTRATION RATE 31.7 ML/MIN; Potassium 3.7 mmol/L (3.5-5.1); Total Protein 5.9 g/dL (6.3-8.2)
[2021-05-23] MEDS: ZYLOPRIM 300 MG PO SCH (09:04)
[2021-05-23] MEDS: ECOTRIN 81 MG PO SCH (09:04)
[2021-05-23] MEDS: ROCEPHIN 1 Gm-D5w 50 ml Bag** 1 G/50 ML IVPB IV SCH (09:04)
[2021-05-23] MEDS: HUMALOG SQ SCH ×3 (09:04→22:19)
[2021-05-23] MEDS: Imdur 60MG PO SCH (09:04)
[2021-05-23] MEDS: Toprol Xl 50 MG PO SCH (09:04)
[2021-05-23] MEDS: NEURONTIN 300 MG PO SCH (09:05)
[2021-05-23] MEDS: Pepcid 20 MG PO SCH (09:05)
[2021-05-23] MEDS: Protonix 40MG Tablet PO SCH (09:05)
[2021-05-23] MEDS: NORVASC 5 MG PO SCH (09:05)
[2021-05-23] MEDS: Lasix 40 MG PO SCH (09:05)
[2021-05-23] MEDS: SYNTHROID 100 MCG PO SCH (09:05)
[2021-05-23] MEDS: ZOCOR 20MG PO SCH (09:05)
[2021-05-23 09:52] LABS: Absolute Neutrophil Ct (ANC) 14.07 (1.4-6.9); Basophil (Absolute #) 0.01 (0-0.4); Eosinophil % 0.1 % (0.00-5.0); Eosinophil (Absolute #) 0.02 (0-0.5); Hematocrit 40.4 % (35-47); Hemoglobin 13.2 gm/dl (12.0-16.0); Lymphocyte (Absolute #) 1.86 (1.0-4.6); Lymphocytes % 10.6 % (24.0-44.0); Mean Corpuscular Hemoglobin 32.4 pg (26-32); Mean Corpuscular Hgb Concent. 32.7 g/dl (32-36); Mean Platelet Volume 12.3 fl (7.5-11.0); Monocyte (Absolute #) 1.57 (0.0-1.3); Neutrophil % 80.2 % (36.0-66.0); Platelet Count 243 K/mm3 (150-450); Red Blood Count 4.08 M/mm3 (4.1-5.4); Red Cell Distribution Width 14.8 % (11.5-14.0); White Blood Count 17.5 K/mm3 (4.0-10.5)
[2021-05-23] MEDS: TYLENOL 325 MG PO PRN ×2 (16:09→22:27)
[2021-05-23] MEDS: Lantus Insulin SQ SCH (22:22)
[2021-05-24] MEDS: Lasix 40 MG PO SCH (09:20)
[2021-05-24] MEDS: Pepcid 20 MG PO SCH (09:20)
[2021-05-24] MEDS: Toprol Xl 50 MG PO SCH (09:20)
[2021-05-24] MEDS: NEURONTIN 300 MG PO SCH (09:20)
[2021-05-24] MEDS: SYNTHROID 100 MCG PO SCH (09:20)
[2021-05-24] MEDS: Protonix 40MG Tablet PO SCH (09:20)
[2021-05-24] MEDS: NORVASC 5 MG PO SCH (09:20)
[2021-05-24] MEDS: Imdur 60MG PO SCH (09:21)
[2021-05-24] MEDS: ECOTRIN 81 MG PO SCH (09:21)
[2021-05-24] MEDS: ZOCOR 20MG PO SCH (09:21)
[2021-05-24] MEDS: ZYLOPRIM 300 MG PO SCH (09:21)
[2021-05-24] MEDS: HUMALOG SQ SCH ×2 (09:40→12:45)
[2021-05-24 13:28] LABS: Absolute Neutrophil Ct (ANC) 8.94 (1.4-6.9); Basophil (Absolute #) 0.04 (0-0.4); Eosinophil % 0.9 % (0.00-5.0); Eosinophil (Absolute #) 0.11 (0-0.5); Hematocrit 42.7 % (35-47); Hemoglobin 14.2 gm/dl (12.0-16.0); Lymphocyte (Absolute #) 1.94 (1.0-4.6); Mean Cell Volume 97.9 fl (78-100); Mean Corpuscular Hemoglobin 32.6 pg (26-32); Mean Corpuscular Hgb Concent. 33.3 g/dl (32-36); Mean Platelet Volume 11.5 fl (7.5-11.0); Monocyte (Absolute #) 1.06 (0.0-1.3); Monocytes % 8.8 % (0.0-12.0); Platelet Count 267 K/mm3 (150-450); Red Blood Count 4.36 M/mm3 (4.1-5.4); Red Cell Distribution Width 14.5 % (11.5-14.0); White Blood Count 12.1 K/mm3 (4.0-10.5)
[2021-05-24 14:14] LABS: ALBUMIN 3.5 g/dL (3.5-5.0); ANION GAP 10.9 MEQ/L (5-15); BILIRUBIN,TOTAL 0.8 mg/dL (0.2-1.3); Calcium 8.3 mg/dL (8.4-10.2); Creatinine 1 1.37 mg/dL (0.52-1.04); EST GLOMERULAR FILTRATION RATE 39.8 ML/MIN; Potassium 3.2 mmol/L (3.5-5.1); Total Protein 6.5 g/dL (6.3-8.2)
[2021-05-24] MEDS ORDERED: K-LYTE 25 MEQ PO ONE (14:29)
[2021-05-24] MEDS ORDERED: Rocephin 1000 MG INJ IM ONE (14:30)
[2021-05-24] MEDS ORDERED: XYLOCAINE 1% HCL 20 ML MDV IJ PRN (14:46)
[2021-05-24] MEDS: ROCEPHIN 1 Gm-D5w 50 ml Bag** 1 G/50 ML IVPB IV SCH (14:58)
[2021-05-24 15:52] VITALS: BP 156/72; PULSE 70; O2SAT 93
--- NOTE | 2021-05-24 22:37 | PCM.DS ---
Discharge Summary Date of Admission: 05/21/21 19:48 Admitting Physician: JUNAID WADE DO Primary Care Provider: JUNAID WADE DO Allergies Allergies dulaglutide [From [facility]] Allergy (Verified 08/23/20 14:16) Stomach Pain walnut Allergy (Verified 08/23/20 14:16) Hospital Summary - Hospital Course Hospital Course: Patient is a 75yr old female patient of Dr Wade who presented to ER after a hypoglycemic episode. Patient states she was constipated and strained on the toilet and almost passed out. CT of chest and abdomen did not show any acute changes. WBC was 23,000 and patient improved with IV Rocephin and IV fluids.WBC on discharge was 12,000,UA culture was not resulted . Rx Ceftin given on discharge. PMhx includes IDDM2 with CKD,HTN,HLD,CAD,hemiparesis S/P CVA,Hypothyroid,Gout and GERD. Will follow up with PCP in 1 week. - Vitals & Intake/Output Vital Signs: Vital Signs Temperature 98.1 F 05/24/21 15:51 Pulse Rate 70 05/24/21 15:51 Respiratory Rate 16 05/24/21 15:51 Blood Pressure 156/72 05/24/21 15:51 O2 Sat by Pulse Oximetry 93 L 05/24/21 15:51 Intake & Output: Intake & Output 05/22/21 05/23/21 05/24/21 05/25/21 11:59 11:59 11:59 11:59 Intake Total 100 1020 3174 480 Output Total 1100 3400 1700 Balance 100 -80 -226 -1220 Weight 117 kg - Lab Result Diagrams: 05/24/21 13:26 05/24/21 13:26 Lab Results-Last 24 Hrs: Lab Results-Last 24 Hours 05/24/21 05/24/21 05/24/21 Range/Units 01:21 07:20 09:35 WBC (4.0-10.5) K/mm3 RBC (4.1-5.4) M/mm3 Hgb (12.0-16.0) gm/dl Hct (35-47) % MCV (78-100) fl MCH (26-32) pg MCHC (32-36) g/dl RDW (11.5-14.0) % Plt Count (150-450) K/mm3 MPV (7.5-11.0) fl Gran % (36.0-66.0) % Eos # (Auto) (0-0.5) Absolute Lymphs (auto) (1.0-4.6) Absolute Monos (auto) (0.0-1.3) Lymphocytes % (24.0-44.0) % Monocytes % (0.0-12.0) % Eosinophils % (0.00-5.0) % Basophils % (0.0-0.4) % Absolute Granulocytes (1.4-6.9) Basophils # (0-0.4) Sodium (137-145) mmol/L Potassium (3.5-5.1) mmol/L Chloride (98-107) mmol/L Carbon Dioxide (22-30) mmol/L Anion Gap (5-15) MEQ/L BUN (7-17) mg/dL Creatinine (0.52-1.04) mg/dL Estimated GFR ML/MIN Glucose (74-106) mg/dL POC Glucometer 120 H 132 H 182 H (74 to 106) mg/dL Calcium (8.4-10.2) mg/dL Total Bilirubin (0.2-1.3) mg/dL AST (14-36) U/L ALT (0-35) U/L Alkaline Phosphatase (38-126) U/L Serum Total Protein (6.3-8.2) g/dL Albumin (3.5-5.0) g/dL 05/24/21 05/24/21 05/24/21 Range/Units 11:29 13:26 13:26 WBC 12.1 H (4.0-10.5) K/mm3 RBC 4.36 (4.1-5.4) M/mm3 Hgb 14.2 (12.0-16.0) gm/dl Hct 42.7 (35-47) % MCV 97.9 (78-100) fl MCH 32.6 H (26-32) pg MCHC 33.3 (32-36) g/dl RDW 14.5 H (11.5-14.0) % Plt Count 267 (150-450) K/mm3 MPV 11.5 H (7.5-11.0) fl Gran % 74.0 H (36.0-66.0) % Eos # (Auto) 0.11 (0-0.5) Absolute Lymphs (auto) 1.94 (1.0-4.6) Absolute Monos (auto) 1.06 (0.0-1.3) Lymphocytes % 16.0 L (24.0-44.0) % Monocytes % 8.8 (0.0-12.0) % Eosinophils % 0.9 (0.00-5.0) % Basophils % 0.3 (0.0-0.4) % Absolute Granulocytes 8.94 H (1.4-6.9) Basophils # 0.04 (0-0.4) Sodium 140 (137-145) mmol/L Potassium 3.2 L (3.5-5.1) mmol/L Chloride 104 (98-107) mmol/L Carbon Dioxide 28 (22-30) mmol/L Anion Gap 10.9 (5-15) MEQ/L BUN 25 H (7-17) mg/dL Creatinine 1.37 H (0.52-1.04) mg/dL Estimated GFR 39.8 ML/MIN Glucose 162 H (74-106) mg/dL POC Glucometer 193 H (74 to 106) mg/dL Calcium 8.3 L (8.4-10.2) mg/dL Total Bilirubin 0.80 (0.2-1.3) mg/dL AST 21 (14-36) U/L ALT 13 (0-35) U/L Alkaline Phosphatase 88 (38-126) U/L Serum Total Protein 6.5 (6.3-8.2) g/dL Albumin 3.5 (3.5-5.0) g/dL Micro Results-Entire Visit: Accuchecks Date 05/24/21 Date 05/24/21 Time 11:36 Time 07:41 Discharge Exam General Appearance: no apparent distress Neurologic Exam: alert, oriented x 3, normal mood/affect (anxious to go home) Eye Exam: eyes nml inspection Ears, Nose, Throat Exam: normal ENT inspection Neck Exam: normal inspection Respiratory Exam: normal breath sounds Cardiovascular Exam: regular rate/rhythm Gastrointestinal/Abdomen Exam: soft, normal bowel sounds (nontender,no CVA tenderness) Extremity Exam: other (hemiparesis ,trace ankle edema) Final Diagnosis/Problem List - Final Discharge Diagnosis/Problem (1) Leukocytosis Status: Resolved Code(s): D72.829 - ELEVATED WHITE BLOOD CELL COUNT, UNSPECIFIED (2) Fecal impaction in rectum Status: Resolved Code(s): K56.41 - FECAL IMPACTION (3) Low blood sugar Status: Resolved Code(s): E16.2 - HYPOGLYCEMIA, UNSPECIFIED (4) IDDM (insulin dependent diabetes mellitus) Status: Chronic Code(s): YMH1437 - (5) Remote history of stroke Status: Chronic Assessment & Plan: hemiparesis Code(s): Z86.73 - PRSNL HX OF TIA (TIA), AND CEREB INFRC W/O RESID DEFICITS - Discharge Disposition: Home, Self-Care Condition: Stable Prescriptions: New Cefuroxime Axetil 500 mg [Ceftin 500 mg] 500 mg PO BID 5 Days #10 tablet No Action Gabapentin 300 mg PO DAILY Allopurinol 300 mg [Zyloprim 300 mg] 300 mg PO DAILY Metoprolol Succinate 50 mg [Toprol Xl 50 MG] 50 mg PO DAILY Isosorbide Mononitrate 60 mg [Imdur 60MG] 60 mg PO DAILY Omeprazole [Prilosec] 40 mg PO DAILY Levothyroxine Sodium 100 Mcg [Synthroid 100 Mcg] 100 mcg PO DAILY Furosemide 40 mg [Lasix 40 MG] 80 mg PO DAILY Mifepristone [Korlym] 300 mg PO 3XW Insulin Aspart [Novolog] 25 units SQ TID Insulin Detemir [Levemir] 26 units SQ DAILY Famotidine 20 mg [Pepcid 20 MG] 1 ea PO DAILY Atorvastatin Calcium [Lipitor] 40 mg DAILY Amlodipine Besylate 2.5 mg PO DAILY Insulin Aspart [Novolog] 1 unit SQ DAILY Aspirin EC 81 mg [Ecotrin 81 mg] 81 mg PO DAILY Instructions: Constipation, Adult (DC) Additional Instructions: Start antibiotic tomorrow (05/25/21) Follow up with: JUNAID WADE DO [Primary Care Provider] - 05/31/21 10:30 am
== END 2021-05-24 16:20 | disposition home or self-care (01) ==
LOC: ED 13:32 → MED SURG 19:48
PROVIDERS: ADMIT Family Medicine; ATTEND Family Medicine
DX: D72.829 Elevated white blood cell count, unspecified (principal); K56.41 Fecal impaction; E11.22 Type 2 diabetes mellitus with diabetic chronic kidney disease; E11.649 Type 2 diabetes mellitus with hypoglycemia without coma; I12.9 Hypertensive chronic kidney disease with stage 1 through stage 4 chronic kidney disease, or unspecified chronic kidney disease; N18.30 Chronic kidney disease, stage 3 unspecified; I25.10 Atherosclerotic heart disease of native coronary artery without angina pectoris; I25.2 Old myocardial infarction; Z86.73 Personal history of transient ischemic attack (TIA), and cerebral infarction without residual deficits; Z79.899 Other long term (current) drug therapy; Z20.828 Contact with and (suspected) exposure to other viral communicable diseases
CPT/HCPCS: 0241U; 36415; 71046; 71250; 74176; 80048; 80053; 82947; 83036; 83690; 83880; 84484; 85025; 93005; 93041; 93268; 96360; 96374; 96375; 99285; G0378; J0696; J1170; J1817; J2405; A9270-GY

== ENCOUNTER 2021-07-11 08:14 | Observation (INO) | payer MEDICARE, OTHER ==
[2021-07-11] MEDS ORDERED: Zofran 4 MG/2 ML VIAL IV ONE (08:40)
[2021-07-11] MEDS ORDERED: Sodium Chloride 0.9% 500 ML 500 ML IV ONE ×2 (08:42→09:20)
[2021-07-11 09:11] LABS: Absolute Neutrophil Ct (ANC) 5.28 x10^3/uL (1.4-6.9); Basophil (Absolute #) 0.03 x10^3/uL (0-0.4); Eosinophil % 0.4 % (0.00-5.0); Eosinophil (Absolute #) 0.03 x10^3/uL (0-0.5); Hemoglobin 15.5 g/dL (12.0-16.0); Lymphocyte (Absolute #) 0.91 x10^3/uL (1.0-4.6); Lymphocytes % 13.2 % (24.0-44.0); Mean Cell Volume 95.9 fL (78-100); Mean Corpuscular Hemoglobin 31.6 pg (26-32); Mean Platelet Volume 11.1 fL (7.5-11.0); Monocyte (Absolute #) 0.65 x10^3/uL (0.0-1.3); Monocytes % 9.4 % (0.0-12.0); Neutrophil % 76.3 % (36.0-66.0); Platelet Count 210 x10^3/uL (150-450); Red Cell Distribution Width 13.5 % (11.5-14.0); White Blood Count 6.9 x10^3/uL (4.0-10.5)
[2021-07-11] MEDS ORDERED: Zofran 4 MG/2 ML VIAL ONE (09:20)
[2021-07-11] MEDS ORDERED: NORCO 5/325 MG PO ONE (09:25)
[2021-07-11 09:30] LABS: Appearance CLEAR (CLEAR); Bilirubin NEGATIVE (NEGATIVE); Dipstick done @ ? MAIN LAB; Glucose NEGATIVE (NEGATIVE); Ketones NEGATIVE (NEGATIVE); Nitrite NEGATIVE (NEGATIVE); Ph 5.5 (5-6); Protein,Urine Dip 30 (Negative); RBC NEGATIVE Ery/ul (0-5); Urobilinogen 2 mg/dL (0-1)
[2021-07-11] MEDS ORDERED: NORCO 5/325 MG ONE (09:30)
[2021-07-11 09:31] LABS: ALBUMIN 3.7 g/dL (3.5-5.0); ANION GAP 13.2 MEQ/L (5-15); BILIRUBIN,TOTAL 0.7 mg/dL (0.2-1.3); Calcium 8.8 mg/dL (8.4-10.2); Creatinine 1 1.13 mg/dL (0.52-1.04); EST GLOMERULAR FILTRATION RATE 49.8 ML/MIN; Potassium 3.9 mmol/L (3.5-5.1); Total Protein 6.5 g/dL (6.3-8.2)
[2021-07-11 09:34] LABS: Bacteria RARE /HPF (NEGATIVE); Mucus SLIGHT /HPF (NEGATIVE); Urine Cultured Indicated? NO; WBC 0-2 /HPF (0-5)
[2021-07-11 09:57] LABS: MAGNESIUM 1.7 mg/dL (1.6-2.3)
--- NOTE | 2021-07-11 12:42 | ERPHSYRPT ---
- History of Present Illness Time Seen by Provider: 07/11/21 09:23 Source: patient, EMS Exam Limitations: no limitations Patient Subjective Stated Complaint: pt reports falling yesterday and the day previous, states she has also vomited x 2 and feels weak. pt states that she has a history of stroke and does not remember how she fell. pt reports right shoulder pain and increased effort to walk, stand. pt also reports intermittent headache that is often worse at night. states she feels okay when she is laying down. Triage Nursing Assessment: pt is aox3, speech is clear, appropriate, no facial droop noted, pt hand gyn strong and equal, pupils perrl, afebrile, resps easy and non labored, radial pulses strong and equal, cap refill < 3 seconds, pt skin pink warm dry. pt with dried vomit on her clothing upon arrival. Physician History: 75 years old female with history of hypertension, hyperlipidemia, hypothyroidi sm, diabetes mellitus, stroke with right-sided residual weakness, ambulatory with a walker is brought in the ER by EMS with frequent falls lately. Patient reports she has been falling off and on for the last few weeks and 2-3 times since yesterday where it gets really difficult to get up and has to call fur dyer multiple time. Patient denies any focal weakness but weakness all over. More with ambulation and better with lying. Intermittent mild to moderate headache and had nausea with vomiting x2 since yesterday without any abdominal pain. Denies any chest pain palpitations or shortness of breath. Patient is unable to recall how she fell today but is complaining of pain in the right shoulder. She is currently in outpatient rehab. No fever or chills reported. Timing/Duration: week(s), intermittent, gradual onset, worse Severity: moderate Modifying Factors: Improves With: rest. Worsens With: movement Associated Symptoms: nausea, vomiting, headaches, malaise, weakness, No abdominal pain, No shortness of breath, No heartburn, No diaphoresis, No cough, No chills, No chest pain, No fever, No loss of appetite, No syncope Allergies/Adverse Reactions: dulaglutide [From [facility]] Allergy (Verified 07/11/21 15:39) Stomach Pain walnut Allergy (Verified 07/11/21 15:39) Home Medications: Allopurinol 300 mg [Zyloprim 300 mg] 300 mg PO DAILY 10/08/15 [History] Gabapentin 300 mg PO DAILY 10/08/15 [History] Isosorbide Mononitrate 60 mg [Imdur 60MG] 60 mg PO DAILY 10/08/15 [History] Metoprolol Succinate 50 mg [Toprol Xl 50 MG] 50 mg PO DAILY 10/08/15 [History] Omeprazole [Prilosec] 40 mg PO DAILY 10/08/15 [History] Furosemide 40 mg [Lasix 40 MG] 80 mg PO DAILY 11/02/19 [History] Levothyroxine Sodium 100 Mcg [Synthroid 100 Mcg] 100 mcg PO DAILY 11/02/19 [History] Mifepristone [Korlym] 300 mg PO 3XW 11/02/19 [History] Amlodipine Besylate 2.5 mg PO DAILY 08/23/20 [History] Atorvastatin Calcium [Lipitor] 40 mg DAILY 08/23/20 [History] Famotidine 20 mg [Pepcid 20 MG] 1 ea PO DAILY 08/23/20 [History] Insulin Aspart [Novolog] 25 units SQ TID 08/23/20 [History] Insulin Detemir [Levemir] 26 units SQ DAILY 08/23/20 [History] Aspirin EC 81 mg [Ecotrin 81 mg] 81 mg PO DAILY 05/22/21 [History] Fluoxetine HCl 10 mg [Prozac 10 mg] 10 mg PO DAILY 07/11/21 [History] Lamotrigine [Lamotrigine ER] 300 mg PO HS 07/11/21 [History] Hx Tetanus, Diphtheria Vaccination/Date Given: Yes Hx Influenza Vaccination/Date Given: Yes Hx Pneumococcal Vaccination/Date Given: Yes Immunizations Up to Date: Yes Travel Risk - International Travel Have you traveled outside of the country in past 3 weeks: No - Coronavirus Screening Are you exhibiting any of the following symptoms?: No Close contact with a COVID-19 positive Pt in past 14-21 Days: No - Vaccine Status Have you recieved a Covid-19 vaccination: Yes Arboriculturist: Moderna - Vaccination Dates Date of 2cond Vaccination (if applicable): unk - Review of Systems Constitutional: Fatigue, Weakness Eyes: No Symptoms Ears, Nose, & Throat: No Symptoms Respiratory: No Symptoms Cardiac: No Symptoms Abdominal/Gastrointestinal: No Symptoms Genitourinary Symptoms: No Symptoms Musculoskeletal: Arthralgias, Joint Pain Skin: No Symptoms Neurological: Headache, No Sensory Changes Psychological: No Symptoms Endocrine: No Symptoms Hematologic/Lymphatic: No Symptoms Immunological/Allergic: No Symptoms - Past Medical History Pertinent Past Medical History: Yes Neurological History: Seizures, Stroke ENT History: Cataracts, Macular Degeneration Cardiac History: Hypertension, Myocardial Infarction ([place]) Respiratory History: Other Endocrine Medical History: Diabetes Type II Musculoskeletal History: Osteoarthritis GI Medical History: Gallbladder Disease, Hemorrhoids, Hernia History: No Pertinent History, Renal Disease Psycho-Social History: No Pertinent History, Depression Female Reproductive Disorders: No Pertinent History Other Medical History: SX HX: BILATERAL TOTAL KNEE REPLACEMENTS WITH MOST RECENT, FOOT SURGERY FOR HEEL SPURS, CHOLECYSTECOMY, HYSTERECTOMY. 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 OBESITY WITH BMI 41.1 KG/M2 - Past Surgical History Past Surgical History: Yes Neuro Surgical History: No Pertinent History Cardiac: Cardiac Catheterization Respiratory: No Pertinent History Gastrointestinal: Cholecystectomy Genitourinary: No Pertinent History Musculoskeletal: Joint Replacement, Orthopedic Surgery Female Surgical History: Hysterectomy Other Surgical History: guzman. knee replacements, rib fx. ,guzman feet spurs removed - Social History Smoking Status: Never smoker Exposure to second hand smoke: No Drug Use: none Patient Lives Alone: No - Nursing Vital Signs Nursing Vital Signs: Initial Vital Signs Temperature 98.1 F 07/11/21 08:16 Pulse Rate 63 07/11/21 08:16 Respiratory Rate 20 07/11/21 08:16 Blood Pressure 162/74 07/11/21 08:16 O2 Sat by Pulse Oximetry 95 07/11/21 08:16 Pain Scale Pain Intensity 0 - Physical Exam General Appearance: no apparent distress, alert Eye Exam: PERRL/EOMI, eyes nml inspection Ears, Nose, Throat Exam: normal ENT inspection, TMs normal, pharynx normal, moist mucous membranes Neck Exam: normal inspection, non-tender, supple, full range of motion, No meningismus Respiratory Exam: normal breath sounds, lungs clear, No chest tenderness Cardiovascular Exam: regular rate/rhythm, normal heart sounds Gastrointestinal/Abdomen Exam: soft, normal bowel sounds, No tenderness Back Exam: normal inspection, No CVA tenderness, No vertebral tenderness Extremity Exam: normal inspection, normal range of motion, pelvis stable Neurologic Exam: alert, oriented x 3, cooperative, steward/stewardess second class II-XII nml as tested, normal mood/affect, sensation nml, motor deficits (4/5 power right upper and lower extremities.), No nml station & gait, No facial droop Skin Exam: normal color SpO2 Interpretation: normal SpO2: 95 O2 Delivery: Room Air - Course EKG Interpreted by Me: RATE (64), Sinus Rhythm, NORMAL AXIS, Right Bundle Branch Block, Non-specific ST Changes Ordered Tests: Active Orders 24 hr Category Date Time Status Bedrest ROUTINE Activity 07/11/21 14:59 Active Up With Assistance ROUTINE Activity 07/11/21 14:59 Active Code Status Order ROUTINE Care 07/11/21 14:59 Active EKG-ER Only STAT Care 07/11/21 08:40 Completed Fall Protocol Q1H Care 07/11/21 14:59 Active IV Care Q6H Care 07/11/21 14:59 Active IV Insertion STAT Care 07/11/21 08:44 Completed Neuro Checks Q4H Care 07/11/21 14:59 Active POCT Glucose Check ACHS Care 07/11/21 14:[address] in Observation ROUTINE Care 07/11/21 14:59 Active Tonya Encarnacion ROUTINE Care 07/11/21 14:59 Active Weight,Daily 0600 Care 07/11/21 14:59 Active Consistent Carbohydrate Diet 1800 Calorie Diet 07/11/21 Dinner Active CHEST 1 VIEW (PORTABLE) Stat Exams 07/11/21 08:56 Completed HEAD WITHOUT CONTRAST [CT] Stat Exams 07/11/21 11:31 Completed SHOULDER Stat Exams 07/11/21 09:51 Completed BLOOD CULTURE Stat Lab 07/11/21 09:05 Received BNP [NT PRO BNP] Stat Lab 07/11/21 09:25 Completed CBC W DIFF AM.LAB Lab 07/12/21 04:00 Ordered CBC W DIFF Stat Lab 07/11/21 09:05 Completed CMP AM.LAB Lab 07/12/21 04:00 Ordered CMP Stat Lab 07/11/21 09:05 Completed LIPASE Stat Lab 07/11/21 09:05 Completed Lactic Acid Stat Lab 07/11/21 08:40 Completed MAG [MAGNESIUM] Stat Lab 07/11/21 09:25 Completed TROPONIN Q3H Lab 07/11/21 09:05 Completed TROPONIN Q3H Lab 07/11/21 11:45 Completed TROPONIN Q3H Lab 07/11/21 14:48 Completed UA W/RFX CULTURE Stat Lab 07/11/21 09:21 Completed Transfer Order Routine Transfer 07/11/21 Completed Medication Summary Generic Name Dose Route Start Last Admin Trade Name Eduardo PRN Reason Stop Dose Admin Acetaminophen 650 mg 07/11/21 14:59 Acetaminophen 325 Mg Tablet PO 08/10/21 14:58 Q4H PRN PRN PAIN AND/OR FEVER Sodium Chloride 1,000 mls @ 100 mls/hr 07/11/21 14:59 07/11/21 15:17 Sodium Chloride 0.9% 1000 Ml IV 08/10/21 14:58 100 mls/hr .Q10H TRACY Administration Insulin Human Lispro 0 unit 07/11/21 14:59 07/11/21 21:43 Insulin Lispro 1 Unit SQ 08/10/21 14:58 4 unit UD PRN Administration HYPERGLYCEMIA Lamotrigine 300 mg 07/11/21 22:00 07/11/21 21:34 Lamotrigine 100 Mg Tab PO 07/11/21 22:01 300 mg ONCE ONE Administration Ondansetron HCl 4 mg 07/11/21 14:59 Ondansetron Hcl 4 Mg/2 Ml Vial IV 08/10/21 14:58 Q6H PRN PRN NAUSEA/VOMITING Pantoprazole Sodium 40 mg 07/12/21 10:00 Pantoprazole 40 Mg Vial IV 08/11/21 09:59 Q24H10 TRACY Discontinued Medications Generic Name Dose Route Start Last Admin Trade Name Eduardo PRN Reason Stop Dose Admin Hydrocodone Bitart/Acetaminophen 1 tab 07/11/21 09:25 07/11/21 09:31 Hydrocodone/Apap 5/325 Mg Tablet PO 07/11/21 09:26 1 tab STAT ONE Administration Hydrocodone Bitart/Acetaminophen Confirm 07/11/21 09:30 Hydrocodone/Apap 5/325 Mg Tablet Administered 07/11/21 09:31 Dose 1 tab .ROUTE .STK-MED ONE Albuterol/Ipratropium 3 ml 07/11/21 14:59 Ipratropium/Albuterol Sulfate 3 Ml Ampul.Neb IH 08/10/21 14:58 Q4HPRN PRN SHORTNESS OF BREATH/WHEEZING Sodium Chloride 500 mls @ 500 mls/hr 07/11/21 08:42 07/11/21 13:42 Sodium Chloride 0.9% 500 Ml IV 07/11/21 09:41 Infused .Q1H ONE Infusion Sodium Chloride Confirm 07/11/21 09:20 Sodium Chloride 0.9% 500 Ml Administered 07/11/21 09:21 Dose 500 mls @ ud IV .STK-MED ONE Ondansetron HCl 4 mg 07/11/21 08:40 07/11/21 09:22 Ondansetron Hcl 4 Mg/2 Ml Vial IV 07/11/21 08:41 4 mg STAT ONE Administration Ondansetron HCl Confirm 07/11/21 09:20 Ondansetron Hcl 4 Mg/2 Ml Vial Administered 07/11/21 09:21 Dose 4 mg .ROUTE .STK-MED ONE Lab/Rad Data: Laboratory Result Diagrams 07/11/21 09:05 07/11/21 09:05 Laboratory Results 07/11/21 07/11/21 07/11/21 Range/Units 14:48 14:45 14:45 WBC (4.0-10.5) x10^3/uL RBC (4.1-5.4) x10^6/uL Hgb (12.0-16.0) g/dL Hct (35-47) % MCV (78-100) fL MCH (26-32) pg MCHC (32-36) g/dL RDW (11.5-14.0) % Plt Count (150-450) x10^3/uL MPV (7.5-11.0) fL Gran % (36.0-66.0) % Immature Gran % (Auto) (0.00-0.4) % Nucleat RBC Rel Count (0.00-0.1) % Eos # (Auto) (0-0.5) x10^3/uL Immature Gran # (Auto) (0.00-0.03) x10^3u/L Absolute Lymphs (auto) (1.0-4.6) x10^3/uL Absolute Monos (auto) (0.0-1.3) x10^3/uL Absolute Nucleated RBC (0.00-0.01) x10^3u/L Lymphocytes % (24.0-44.0) % Monocytes % (0.0-12.0) % Eosinophils % (0.00-5.0) % Basophils % (0.0-0.4) % Absolute Granulocytes (1.4-6.9) x10^3/uL Basophils # (0-0.4) x10^3/uL Sodium (137-145) mmol/L Potassium (3.5-5.1) mmol/L Chloride (98-107) mmol/L Carbon Dioxide (22-30) mmol/L Anion Gap (5-15) MEQ/L BUN (7-17) mg/dL Creatinine (0.52-1.04) mg/dL Estimated GFR ML/MIN Glucose (74-106) mg/dL Lactic Acid (0.4-2.0) Calcium (8.4-10.2) mg/dL Magnesium (1.6-2.3) mg/dL Total Bilirubin (0.2-1.3) mg/dL AST (14-36) U/L ALT (0-35) U/L Alkaline Phosphatase (38-126) U/L Troponin I < 0.012 (0.000-0.034) ng/mL NT-Pro-B Natriuret Pep (0-1800) pg/mL Serum Total Protein (6.3-8.2) g/dL Albumin (3.5-5.0) g/dL Prealbumin 16.34 L (17.6-36.0) mg/dL Lipase (23-300) U/L TSH 3rd Generation 0.446 L (0.47-4.68) mIU/L Urinalys Dipstick Clnc Urine Color (YELLOW) Urine Appearance (CLEAR) Urine pH (5-6) Ur Specific [place] (1.005-1.025) POC Urine Protein Conf (Negative) Urine Ketones (NEGATIVE) Urine Nitrite (NEGATIVE) Urine Bilirubin (NEGATIVE) Urine Urobilinogen (0-1) mg/dL Urine Leukocytes (NEGATIVE) Urine WBC (Auto) (0-5) /HPF Urine RBC (Auto) (0-2) /HPF U Epithel Cells (Auto) (FEW) /HPF Urine Bacteria (Auto) (NEGATIVE) /HPF Urine RBC (0-5) Jason/ul Urine Mucus (Auto) (NEGATIVE) /HPF Ur Culture Indicated? Urine Glucose (NEGATIVE) mg/dL 07/11/21 07/11/21 07/11/21 Range/Units 11:45 09:25 09:21 WBC (4.0-10.5) x10^3/uL RBC (4.1-5.4) x10^6/uL Hgb (12.0-16.0) g/dL Hct (35-47) % MCV (78-100) fL MCH (26-32) pg MCHC (32-36) g/dL RDW (11.5-14.0) % Plt Count (150-450) x10^3/uL MPV (7.5-11.0) fL Gran % (36.0-66.0) % Immature Gran % (Auto) (0.00-0.4) % Nucleat RBC Rel Count (0.00-0.1) % Eos # (Auto) (0-0.5) x10^3/uL Immature Gran # (Auto) (0.00-0.03) x10^3u/L Absolute Lymphs (auto) (1.0-4.6) x10^3/uL Absolute Monos (auto) (0.0-1.3) x10^3/uL Absolute Nucleated RBC (0.00-0.01) x10^3u/L Lymphocytes % (24.0-44.0) % Monocytes % (0.0-12.0) % Eosinophils % (0.00-5.0) % Basophils % (0.0-0.4) % Absolute Granulocytes (1.4-6.9) x10^3/uL Basophils # (0-0.4) x10^3/uL Sodium (137-145) mmol/L Potassium (3.5-5.1) mmol/L Chloride (98-107) mmol/L Carbon Dioxide (22-30) mmol/L Anion Gap (5-15) MEQ/L BUN (7-17) mg/dL Creatinine (0.52-1.04) mg/dL Estimated GFR ML/MIN Glucose (74-106) mg/dL Lactic Acid (0.4-2.0) Calcium (8.4-10.2) mg/dL Magnesium 1.7 (1.6-2.3) mg/dL Total Bilirubin (0.2-1.3) mg/dL AST (14-36) U/L ALT (0-35) U/L Alkaline Phosphatase (38-126) U/L Troponin I < 0.012 (0.000-0.034) ng/mL NT-Pro-B Natriuret Pep 239 (0-1800) pg/mL Serum Total Protein (6.3-8.2) g/dL Albumin (3.5-5.0) g/dL Prealbumin (17.6-36.0) mg/dL Lipase (23-300) U/L TSH 3rd Generation (0.47-4.68) mIU/L Urinalys Dipstick Clnc MAIN LAB Urine Color YELLOW (YELLOW) Urine Appearance CLEAR (CLEAR) Urine pH 5.5 (5-6) Ur Specific [place] 1.020 (1.005-1.025) POC Urine Protein Conf 30 (Negative) Urine Ketones NEGATIVE (NEGATIVE) Urine Nitrite NEGATIVE (NEGATIVE) Urine Bilirubin NEGATIVE (NEGATIVE) Urine Urobilinogen 2 (0-1) mg/dL Urine Leukocytes NEGATIVE (NEGATIVE) Urine WBC (Auto) 0-2 (0-5) /HPF Urine RBC (Auto) NONE (0-2) /HPF U Epithel Cells (Auto) NONE (FEW) /HPF Urine Bacteria (Auto) RARE (NEGATIVE) /HPF Urine RBC NEGATIVE (0-5) Jason/ul Urine Mucus (Auto) SLIGHT (NEGATIVE) /HPF Ur Culture Indicated? NO Urine Glucose NEGATIVE (NEGATIVE) mg/dL 07/11/21 07/11/21 07/11/21 Range/Units 09:05 09:05 09:05 WBC 6.9 (4.0-10.5) x10^3/uL RBC 4.90 (4.1-5.4) x10^6/uL Hgb 15.5 (12.0-16.0) g/dL Hct 47.0 (35-47) % MCV 95.9 (78-100) fL MCH 31.6 (26-32) pg MCHC 33.0 (32-36) g/dL RDW 13.5 (11.5-14.0) % Plt Count 210 (150-450) x10^3/uL MPV 11.1 H (7.5-11.0) fL Gran % 76.3 H (36.0-66.0) % Immature Gran % (Auto) 0.3 (0.00-0.4) % Nucleat RBC Rel Count 0.0 (0.00-0.1) % Eos # (Auto) 0.03 (0-0.5) x10^3/uL Immature Gran # (Auto) 0.02 (0.00-0.03) x10^3u/L Absolute Lymphs (auto) 0.91 L (1.0-4.6) x10^3/uL Absolute Monos (auto) 0.65 (0.0-1.3) x10^3/uL Absolute Nucleated RBC 0.00 (0.00-0.01) x10^3u/L Lymphocytes % 13.2 L (24.0-44.0) % Monocytes % 9.4 (0.0-12.0) % Eosinophils % 0.4 (0.00-5.0) % Basophils % 0.4 (0.0-0.4) % Absolute Granulocytes 5.28 (1.4-6.9) x10^3/uL Basophils # 0.03 (0-0.4) x10^3/uL Sodium 134 L (137-145) mmol/L Potassium 3.9 (3.5-5.1) mmol/L Chloride 100 (98-107) mmol/L Carbon Dioxide 24 (22-30) mmol/L Anion Gap 13.2 (5-15) MEQ/L BUN 18 H (7-17) mg/dL Creatinine 1.13 H (0.52-1.04) mg/dL Estimated GFR 49.8 ML/MIN Glucose 186 H (74-106) mg/dL Lactic Acid (0.4-2.0) Calcium 8.8 (8.4-10.2) mg/dL Magnesium (1.6-2.3) mg/dL Total Bilirubin 0.70 (0.2-1.3) mg/dL AST 29 (14-36) U/L ALT 20 (0-35) U/L Alkaline Phosphatase 138 H (38-126) U/L Troponin I < 0.012 (0.000-0.034) ng/mL NT-Pro-B Natriuret Pep (0-1800) pg/mL Serum Total Protein 6.5 (6.3-8.2) g/dL Albumin 3.7 (3.5-5.0) g/dL Prealbumin (17.6-36.0) mg/dL Lipase 37 (23-300) U/L TSH 3rd Generation (0.47-4.68) mIU/L Urinalys Dipstick Clnc Urine Color (YELLOW) Urine Appearance (CLEAR) Urine pH (5-6) Ur Specific [place] (1.005-1.025) POC Urine Protein Conf (Negative) Urine Ketones (NEGATIVE) Urine Nitrite (NEGATIVE) Urine Bilirubin (NEGATIVE) Urine Urobilinogen (0-1) mg/dL Urine Leukocytes (NEGATIVE) Urine WBC (Auto) (0-5) /HPF Urine RBC (Auto) (0-2) /HPF U Epithel Cells (Auto) (FEW) /HPF Urine Bacteria (Auto) (NEGATIVE) /HPF Urine RBC (0-5) Jason/ul Urine Mucus (Auto) (NEGATIVE) /HPF Ur Culture Indicated? Urine Glucose (NEGATIVE) mg/dL 07/11/21 Range/Units 08:40 WBC (4.0-10.5) x10^3/uL RBC (4.1-5.4) x10^6/uL Hgb (12.0-16.0) g/dL Hct (35-47) % MCV (78-100) fL MCH (26-32) pg MCHC (32-36) g/dL RDW (11.5-14.0) % Plt Count (150-450) x10^3/uL MPV (7.5-11.0) fL Gran % (36.0-66.0) % Immature Gran % (Auto) (0.00-0.4) % Nucleat RBC Rel Count (0.00-0.1) % Eos # (Auto) (0-0.5) x10^3/uL Immature Gran # (Auto) (0.00-0.03) x10^3u/L Absolute Lymphs (auto) (1.0-4.6) x10^3/uL Absolute Monos (auto) (0.0-1.3) x10^3/uL Absolute Nucleated RBC (0.00-0.01) x10^3u/L Lymphocytes % (24.0-44.0) % Monocytes % (0.0-12.0) % Eosinophils % (0.00-5.0) % Basophils % (0.0-0.4) % Absolute Granulocytes (1.4-6.9) x10^3/uL Basophils # (0-0.4) x10^3/uL Sodium (137-145) mmol/L Potassium (3.5-5.1) mmol/L Chloride (98-107) mmol/L Carbon Dioxide (22-30) mmol/L Anion Gap (5-15) MEQ/L BUN (7-17) mg/dL Creatinine (0.52-1.04) mg/dL Estimated GFR ML/MIN Glucose (74-106) mg/dL Lactic Acid 1.4 (0.4-2.0) Calcium (8.4-10.2) mg/dL Magnesium (1.6-2.3) mg/dL Total Bilirubin (0.2-1.3) mg/dL AST (14-36) U/L ALT (0-35) U/L Alkaline Phosphatase (38-126) U/L Troponin I (0.000-0.034) ng/mL NT-Pro-B Natriuret Pep (0-1800) pg/mL Serum Total Protein (6.3-8.2) g/dL Albumin (3.5-5.0) g/dL Prealbumin (17.6-36.0) mg/dL Lipase (23-300) U/L TSH 3rd Generation (0.47-4.68) mIU/L Urinalys Dipstick Clnc Urine Color (YELLOW) Urine Appearance (CLEAR) Urine pH (5-6) Ur Specific [place] (1.005-1.025) POC Urine Protein Conf (Negative) Urine Ketones (NEGATIVE) Urine Nitrite (NEGATIVE) Urine Bilirubin (NEGATIVE) Urine Urobilinogen (0-1) mg/dL Urine Leukocytes (NEGATIVE) Urine WBC (Auto) (0-5) /HPF Urine RBC (Auto) (0-2) /HPF U Epithel Cells (Auto) (FEW) /HPF Urine Bacteria (Auto) (NEGATIVE) /HPF Urine RBC (0-5) Jason/ul Urine Mucus (Auto) (NEGATIVE) /HPF Ur Culture Indicated? Urine Glucose (NEGATIVE) mg/dL - Progress Progress: improved Progress Note: 07/11/21 12:38 35 years old is evaluated for repeated falls lately. He has a previous history of stroke but no increased focal weakness but all lower leading to frequent falls and inability to get up needing help. Patient lives alone and has been getting outpatient rehab but does not seem working. Broad work-up was done which is grossly unremarkable for any acute finding in the CT head, acute electrolyte abnormality, focal infectious pathology being the reason of her symptoms. Patient is at increased fall risk and I am worried that she will get worse with possible head injury and would be better served if she go to [facility] with aggressive rehab therapy are at least get admitted in here. I have discussed with patient in length and also with her primary care who does agree that patient should go to [facility] and has called [facility] admission coordinator will call us back but patient does not want to go to [facility] or to be admitted. She is feeling a little better after fluids. Patient is not confused or altered at all, states "I doubt that I can afford going to [facility]". Does not have a locked help available socially. Discussed with patient about risk of frequent fall and head injury or injury anywhere else which could be life-threatening and she may not get the help that appropriate time because of the fact that she lives alone. She is still does not want to stay and I have discussed with her primary care as well again and patient decided to leave AGAINST MEDICAL ADVICE. 07/11/21 13:20 Patient later on decided to stay in the hospital and will think about further options of going home versus going to a [facility] for short while for rehab. Discussed with Dr. Matson again and patient is excepted for admission. Discussed with : Min Counseled pt/family regarding: lab results, diagnosis, need for follow-up, rad results - Departure Departure Disposition: Observation Clinical Impression: Frequent falls, Generalized weakness, Shoulder strain Condition: Stable Critical Care Time: No
[2021-07-11 14:06] LABS: INFLUENZA A NEGATIVE (NEGATIVE); INFLUENZA B NEGATIVE (NEGATIVE); RESPIRATORY SYNCTIAL VIRUS NEGATIVE (Negative); SARS-CoV-2 Xpert Express NEGATIVE (NEGATIVE)
[2021-07-11] MEDS ORDERED: Zofran 4 MG/2 ML VIAL IV PRN (14:59)
[2021-07-11] MEDS ORDERED: DUONEB 0.5-3 MG/3 ml Neb IH PRN (14:59)
[2021-07-11] MEDS ORDERED: HUMALOG SQ PRN (14:59)
--- NOTE | 2021-07-11 15:09 | XRAY ---
Indication: Dizziness. Recent fall. Comparison: May 21, 2021. Portable chest remains clear again with a few incidental tiny calcified granulomas. Heart not enlarged. Bony thorax intact again with osteopenia, degenerative changes, and old left rib fractures. Impression: Continued nonacute chest with chronic findings.
--- NOTE | 2021-07-11 15:09 | XRAY ---
Indication: Pain following fall. Comparison: None 3 view right shoulder demonstrates osteopenia, moderate AC degenerative arthropathy, and a few tiny right lung calcified granulomas. No other bony, articular, or soft tissue abnormalities.
--- NOTE | 2021-07-11 15:13 | XRAY ---
Indication: Weakness and dizziness. Frequent falls. Multiple contiguous axial images obtained through the head without contrast. Comparison: August 23, 2020 Again age-appropriate global atrophy, moderate periventricular degenerative micro-ischemia bilaterally, and small old infarct posterior limb left internal capsule. No acute intracranial hemorrhage, abnormal extra-axial fluid collection, or mass effect. Fourth ventricle is midline without hydrocephalus. Bony calvarium intact again with hyperostosis frontalis interna. Visualized paranasal sinuses and mastoid air cells are clear. Impression: Again nonacute senile brain with old infarct left internal capsule. Comment: Preliminary interpretation made by [facility]. No critical discrepancy.
[2021-07-11] MEDS: Sodium Chloride 0.9% 1000 ML 1,000 ML IV SCH (15:17)
[2021-07-11] MEDS ORDERED: lamICTAL 100MG TABLET ONE (21:21)
[2021-07-11] MEDS ORDERED: HUMALOG ONE (21:39)
[2021-07-11] MEDS ORDERED: lamICTAL 100MG TABLET PO ONE (22:00)
[2021-07-11] MEDS ORDERED: TYLENOL 325 MG ONE (22:45)
[2021-07-11] MEDS: TYLENOL 325 MG PO PRN (22:57)
[2021-07-12] MEDS ORDERED: Sodium Chloride 0.9% 1000 ML 1,000 ML ONE (01:25)
[2021-07-12] MEDS: Sodium Chloride 0.9% 1000 ML 1,000 ML IV SCH ×3 (01:28→21:56)
[2021-07-12 04:45] LABS: ALBUMIN 2.9 g/dL (3.5-5.0); ANION GAP 8.2 MEQ/L (5-15); BILIRUBIN,TOTAL 0.5 mg/dL (0.2-1.3); Calcium 8.2 mg/dL (8.4-10.2); Creatinine 1 1.17 mg/dL (0.52-1.04); EST GLOMERULAR FILTRATION RATE 47.8 ML/MIN; Potassium 3.8 mmol/L (3.5-5.1); Total Protein 5.6 g/dL (6.3-8.2)
[2021-07-12 07:03] LABS: Absolute Neutrophil Ct (ANC) 3.75 x10^3/uL (1.4-6.9); Basophil (Absolute #) 0.03 x10^3/uL (0-0.4); Eosinophil % 0.8 % (0.00-5.0); Eosinophil (Absolute #) 0.05 x10^3/uL (0-0.5); Hematocrit 41.3 % (35-47); Hemoglobin 13.8 g/dL (12.0-16.0); Lymphocyte (Absolute #) 1.34 x10^3/uL (1.0-4.6); Lymphocytes % 21.4 % (24.0-44.0); Mean Cell Volume 93.9 fL (78-100); Mean Corpuscular Hemoglobin 31.4 pg (26-32); Mean Corpuscular Hgb Concent. 33.4 g/dL (32-36); Mean Platelet Volume 12.1 fL (7.5-11.0); Monocyte (Absolute #) 1.07 x10^3/uL (0.0-1.3); Monocytes % 17.1 % (0.0-12.0); Neutrophil % 59.9 % (36.0-66.0); Platelet Count 200 x10^3/uL (150-450); Red Cell Distribution Width 13.6 % (11.5-14.0); White Blood Count 6.3 x10^3/uL (4.0-10.5)
[2021-07-12] MEDS ORDERED: MEDICATION INTERVENTION MC SCH ×2 (07:30→07:45)
[2021-07-12] MEDS ORDERED: [UNRECOGNIZED DRUG - OTHER] PO SCH (07:30)
--- NOTE | 2021-07-12 08:58 | PCM.HP ---
History of Present Illness - Chief Complaint Chief Complaint: Generalized weakness History of Present Illness: is a 75 year old female with Hx CVA and residual right sided weakness presented to ER with generalized weakness and repeated falls. EMS told ER physician that they are called to help patient get up from a fall almost daily. ER work up showed no acute findings on head CT and CXR, CBC and CMP at patient's baseline, UA was clear. Since on Med surg patient spiked a temp 102 and c/o af a headache"all over". Covid ,influenza and RSV swab were all negative. - Review of Systems Constitutional: Fever, Fatigue, Lethargy, Weakness (generalized) Ears, Nose, & Throat: No Symptoms Respiratory: No Symptoms Cardiac: No Symptoms Abdominal/Gastrointestinal: No Symptoms Genitourinary Symptoms: Incontinence Musculoskeletal: Arthralgias Skin: No Symptoms Neurological: Focal Weakness (RUE and RLE residual old CVA) Psychological: Depression (mood stable on meds) Endocrine: No Symptoms, Other (diabetes followed by Endo) Hematologic/Lymphatic: No Symptoms Medications & Allergies Home Medications: Home Medication List Allopurinol 300 mg [Zyloprim 300 mg] 300 mg PO DAILY 10/08/15 [History Confirmed 07/11/21] Gabapentin 300 mg PO DAILY 10/08/15 [History Confirmed 07/11/21] Isosorbide Mononitrate 60 mg [Imdur 60MG] 60 mg PO DAILY 10/08/15 [History Confirmed 07/11/21] Metoprolol Succinate 50 mg [Toprol Xl 50 MG] 50 mg PO DAILY 10/08/15 [History Confirmed 07/11/21] Omeprazole [Prilosec] 40 mg PO DAILY 10/08/15 [History Confirmed 07/11/21] Furosemide 40 mg [Lasix 40 MG] 80 mg PO DAILY 11/02/19 [History Confirmed 07/11/21] Levothyroxine Sodium 100 Mcg [Synthroid 100 Mcg] 100 mcg PO DAILY 11/02/19 [History Confirmed 07/11/21] Mifepristone [Korlym] 300 mg PO 3XW 11/02/19 [History Confirmed 07/11/21] Amlodipine Besylate 2.5 mg PO DAILY 08/23/20 [History Confirmed 07/11/21] Atorvastatin Calcium [Lipitor] 40 mg DAILY 08/23/20 [History Confirmed 07/11/21] Famotidine 20 mg [Pepcid 20 MG] 1 ea PO DAILY 08/23/20 [History Confirmed 07/11/21] Insulin Aspart [Novolog] 25 units SQ TID 08/23/20 [History Confirmed 07/11/21] Insulin Detemir [Levemir] 26 units SQ DAILY 08/23/20 [History Confirmed 07/11/21] Aspirin EC 81 mg [Ecotrin 81 mg] 81 mg PO DAILY 05/22/21 [History Confirmed 07/11/21] Fluoxetine HCl 10 mg [Prozac 10 mg] 10 mg PO DAILY 07/11/21 [History Confirmed 07/11/21] Lamotrigine [Lamotrigine ER] 300 mg PO HS 07/11/21 [History Confirmed 07/11/21] Allergies/Adverse Reactions: Allergies Allergy/AdvReac Type Severity Reaction Status Date / Time dulaglutide [From [facility]] Allergy Stomach Verified 07/11/21 15:39 Pain walnut Allergy Verified 07/11/21 15:39 - Past Medical History Past Medical History: Yes Neurological History: Seizures, Stroke ENT History: Cataracts, Macular Degeneration Cardiac History: Hypertension, Myocardial Infarction ([place]) Respiratory History: Other Endocrine Medical History: Diabetes Type II Musculoskelatal History: Osteoarthritis GI Medical History: Gallbladder Disease, Hemorrhoids, Hernia History: No Pertinent History, Renal Disease Pyscho-Social History: No Pertinent History, Depression Reproductive Disorders: No Pertinent History Comment: SX HX: BILATERAL TOTAL KNEE REPLACEMENTS WITH MOST RECENT, FOOT SURGERY FOR HEEL SPURS, CHOLECYSTECOMY, HYSTERECTOMY. 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 OBESITY WITH BMI 41.1 KG/M2 - Female History Hx Last Menstrual Period: POST - Past Surgical History Past Surgical History: Yes Neuro Surgical History: No Pertinent History Cardiac History: Cardiac Catheterization Respiratory Surgery: No Pertinent History GI Surgical History: Cholecystectomy Genitourinary Surgical Hx: No Pertinent History Musculskeletal Surgical Hx: Joint Replacement, Orthopedic Surgery Female Surgical History: Hysterectomy Other Surgical History: guzman. knee replacements, rib fx. ,guzman feet spurs removed - Social History Smoking Status: Never smoker Exposure to second hand smoke: No Alcohol: None Drug Use: none - Physical Exam Vital Signs: Vital Signs - 24 hr Temp Pulse Resp BP Pulse Ox 07/12/21 04:00 96.4 F 68 18 127/60 96 07/11/21 23:17 2.2 F 72 18 153/72 94 L 07/11/21 21:53 95 07/11/21 20:00 98.9 F 75 18 135/68 97 07/11/21 16:00 98.6 F 59 L 28 H 153/69 95 07/11/21 14:30 51 L 24 110/58 95 07/11/21 13:15 56 L 28 H 122/61 96 07/11/21 12:32 65 21 114/60 95 07/11/21 11:05 58 L 20 125/61 93 L 07/11/21 10:29 56 L 20 122/59 94 L 07/11/21 09:30 67 18 157/73 98 General Appearance: no apparent distress, lethargy Neurologic Exam: alert, oriented x 3, cooperative, normal mood/affect Eye Exam: eyes nml inspection Ears, Nose, Throat Exam: normal ENT inspection, other (TMs not inflamed,Pharynx not inflamed) Neck Exam: normal inspection Respiratory Exam: normal breath sounds Cardiovascular Exam: regular rate/rhythm Gastrointestinal/Abdomen Exam: soft, normal bowel sounds (nontender) Pelvic Exam: not done Rectal Exam: not done Wound Assessment: Skin/Wound Assessment Wound/Incision Assessment Start: 07/11/21 16:45 Text: Status: Active Freq: Q6H Protocol: Document 07/12/21 02:00 KX (Rec: 07/12/21 02:23 KX [id number]) Wound/Incision Assessment Right Lower Arm Wound Assessment Shift Assessment Wound Type Abrasion Wound Stage Non Pressure Wound Drainage Amount None Comment Abrasion noted to right elbow and forearm. Scabbed over. Wound Photo Photo Taken No Results - Labs Lab/Micro Results: Lab Results-Last 24 Hours 07/11/21 07/11/21 07/11/21 Range/Units 08:40 09:05 09:05 WBC 6.9 (4.0-10.5) x10^3/uL RBC 4.90 (4.1-5.4) x10^6/uL Hgb 15.5 (12.0-16.0) g/dL Hct 47.0 (35-47) % MCV 95.9 (78-100) fL MCH 31.6 (26-32) pg MCHC 33.0 (32-36) g/dL RDW 13.5 (11.5-14.0) % Plt Count 210 (150-450) x10^3/uL MPV 11.1 H (7.5-11.0) fL Gran % 76.3 H (36.0-66.0) % Immature Gran % (Auto) 0.3 (0.00-0.4) % Nucleat RBC Rel Count 0.0 (0.00-0.1) % Eos # (Auto) 0.03 (0-0.5) x10^3/uL Immature Gran # (Auto) 0.02 (0.00-0.03) x10^3u/L Absolute Lymphs (auto) 0.91 L (1.0-4.6) x10^3/uL Absolute Monos (auto) 0.65 (0.0-1.3) x10^3/uL Absolute Nucleated RBC 0.00 (0.00-0.01) x10^3u/L Lymphocytes % 13.2 L (24.0-44.0) % Monocytes % 9.4 (0.0-12.0) % Eosinophils % 0.4 (0.00-5.0) % Basophils % 0.4 (0.0-0.4) % Absolute Granulocytes 5.28 (1.4-6.9) x10^3/uL Basophils # 0.03 (0-0.4) x10^3/uL Sodium 134 L (137-145) mmol/L Potassium 3.9 (3.5-5.1) mmol/L Chloride 100 (98-107) mmol/L Carbon Dioxide 24 (22-30) mmol/L Anion Gap 13.2 (5-15) MEQ/L BUN 18 H (7-17) mg/dL Creatinine 1.13 H (0.52-1.04) mg/dL Estimated GFR 49.8 ML/MIN Glucose 186 H (74-106) mg/dL POC Glucometer (74 to 106) mg/dL Lactic Acid 1.4 (0.4-2.0) Calcium 8.8 (8.4-10.2) mg/dL Magnesium (1.6-2.3) mg/dL Total Bilirubin 0.70 (0.2-1.3) mg/dL AST 29 (14-36) U/L ALT 20 (0-35) U/L Alkaline Phosphatase 138 H (38-126) U/L Troponin I (0.000-0.034) ng/mL NT-Pro-B Natriuret Pep (0-1800) pg/mL Serum Total Protein 6.5 (6.3-8.2) g/dL Albumin 3.7 (3.5-5.0) g/dL Prealbumin (17.6-36.0) mg/dL Lipase 37 (23-300) U/L TSH 3rd Generation (0.47-4.68) mIU/L Urinalys Dipstick Clnc Urine Color (YELLOW) Urine Appearance (CLEAR) Urine pH (5-6) Ur Specific [place] (1.005-1.025) POC Urine Protein Conf (Negative) Urine Ketones (NEGATIVE) Urine Nitrite (NEGATIVE) Urine Bilirubin (NEGATIVE) Urine Urobilinogen (0-1) mg/dL Urine Leukocytes (NEGATIVE) Urine WBC (Auto) (0-5) /HPF Urine RBC (Auto) (0-2) /HPF U Epithel Cells (Auto) (FEW) /HPF Urine Bacteria (Auto) (NEGATIVE) /HPF Urine RBC (0-5) Jason/ul Urine Mucus (Auto) (NEGATIVE) /HPF Ur Culture Indicated? Urine Glucose (NEGATIVE) mg/dL Influenza Type A Ag (NEGATIVE) Influenza Type B Ag (NEGATIVE) RSV (PCR) (Negative) SARS-CoV-2 (PCR) (NEGATIVE) 07/11/21 07/11/21 07/11/21 Range/Units 09:05 09:21 09:25 WBC (4.0-10.5) x10^3/uL RBC (4.1-5.4) x10^6/uL Hgb (12.0-16.0) g/dL Hct (35-47) % MCV (78-100) fL MCH (26-32) pg MCHC (32-36) g/dL RDW (11.5-14.0) % Plt Count (150-450) x10^3/uL MPV (7.5-11.0) fL Gran % (36.0-66.0) % Immature Gran % (Auto) (0.00-0.4) % Nucleat RBC Rel Count (0.00-0.1) % Eos # (Auto) (0-0.5) x10^3/uL Immature Gran # (Auto) (0.00-0.03) x10^3u/L Absolute Lymphs (auto) (1.0-4.6) x10^3/uL Absolute Monos (auto) (0.0-1.3) x10^3/uL Absolute Nucleated RBC (0.00-0.01) x10^3u/L Lymphocytes % (24.0-44.0) % Monocytes % (0.0-12.0) % Eosinophils % (0.00-5.0) % Basophils % (0.0-0.4) % Absolute Granulocytes (1.4-6.9) x10^3/uL Basophils # (0-0.4) x10^3/uL Sodium (137-145) mmol/L Potassium (3.5-5.1) mmol/L Chloride (98-107) mmol/L Carbon Dioxide (22-30) mmol/L Anion Gap (5-15) MEQ/L BUN (7-17) mg/dL Creatinine (0.52-1.04) mg/dL Estimated GFR ML/MIN Glucose (74-106) mg/dL POC Glucometer (74 to 106) mg/dL Lactic Acid (0.4-2.0) Calcium (8.4-10.2) mg/dL Magnesium 1.7 (1.6-2.3) mg/dL Total Bilirubin (0.2-1.3) mg/dL AST (14-36) U/L ALT (0-35) U/L Alkaline Phosphatase (38-126) U/L Troponin I < 0.012 (0.000-0.034) ng/mL NT-Pro-B Natriuret Pep 239 (0-1800) pg/mL Serum Total Protein (6.3-8.2) g/dL Albumin (3.5-5.0) g/dL Prealbumin (17.6-36.0) mg/dL Lipase (23-300) U/L TSH 3rd Generation (0.47-4.68) mIU/L Urinalys Dipstick Clnc MAIN LAB Urine Color YELLOW (YELLOW) Urine Appearance CLEAR (CLEAR) Urine pH 5.5 (5-6) Ur Specific [place] 1.020 (1.005-1.025) POC Urine Protein Conf 30 (Negative) Urine Ketones NEGATIVE (NEGATIVE) Urine Nitrite NEGATIVE (NEGATIVE) Urine Bilirubin NEGATIVE (NEGATIVE) Urine Urobilinogen 2 (0-1) mg/dL Urine Leukocytes NEGATIVE (NEGATIVE) Urine WBC (Auto) 0-2 (0-5) /HPF Urine RBC (Auto) NONE (0-2) /HPF U Epithel Cells (Auto) NONE (FEW) /HPF Urine Bacteria (Auto) RARE (NEGATIVE) /HPF Urine RBC NEGATIVE (0-5) Jason/ul Urine Mucus (Auto) SLIGHT (NEGATIVE) /HPF Ur Culture Indicated? NO Urine Glucose NEGATIVE (NEGATIVE) mg/dL Influenza Type A Ag (NEGATIVE) Influenza Type B Ag (NEGATIVE) RSV (PCR) (Negative) SARS-CoV-2 (PCR) (NEGATIVE) 07/11/21 07/11/21 07/11/21 Range/Units 11:45 14:45 14:45 WBC (4.0-10.5) x10^3/uL RBC (4.1-5.4) x10^6/uL Hgb (12.0-16.0) g/dL Hct (35-47) % MCV (78-100) fL MCH (26-32) pg MCHC (32-36) g/dL RDW (11.5-14.0) % Plt Count (150-450) x10^3/uL MPV (7.5-11.0) fL Gran % (36.0-66.0) % Immature Gran % (Auto) (0.00-0.4) % Nucleat RBC Rel Count (0.00-0.1) % Eos # (Auto) (0-0.5) x10^3/uL Immature Gran # (Auto) (0.00-0.03) x10^3u/L Absolute Lymphs (auto) (1.0-4.6) x10^3/uL Absolute Monos (auto) (0.0-1.3) x10^3/uL Absolute Nucleated RBC (0.00-0.01) x10^3u/L Lymphocytes % (24.0-44.0) % Monocytes % (0.0-12.0) % Eosinophils % (0.00-5.0) % Basophils % (0.0-0.4) % Absolute Granulocytes (1.4-6.9) x10^3/uL Basophils # (0-0.4) x10^3/uL Sodium (137-145) mmol/L Potassium (3.5-5.1) mmol/L Chloride (98-107) mmol/L Carbon Dioxide (22-30) mmol/L Anion Gap (5-15) MEQ/L BUN (7-17) mg/dL Creatinine (0.52-1.04) mg/dL Estimated GFR ML/MIN Glucose (74-106) mg/dL POC Glucometer (74 to 106) mg/dL Lactic Acid (0.4-2.0) Calcium (8.4-10.2) mg/dL Magnesium (1.6-2.3) mg/dL Total Bilirubin (0.2-1.3) mg/dL AST (14-36) U/L ALT (0-35) U/L Alkaline Phosphatase (38-126) U/L Troponin I < 0.012 (0.000-0.034) ng/mL NT-Pro-B Natriuret Pep (0-1800) pg/mL Serum Total Protein (6.3-8.2) g/dL Albumin (3.5-5.0) g/dL Prealbumin 16.34 L (17.6-36.0) mg/dL Lipase (23-300) U/L TSH 3rd Generation 0.446 L (0.47-4.68) mIU/L Urinalys Dipstick Clnc Urine Color (YELLOW) Urine Appearance (CLEAR) Urine pH (5-6) Ur Specific [place] (1.005-1.025) POC Urine Protein Conf (Negative) Urine Ketones (NEGATIVE) Urine Nitrite (NEGATIVE) Urine Bilirubin (NEGATIVE) Urine Urobilinogen (0-1) mg/dL Urine Leukocytes (NEGATIVE) Urine WBC (Auto) (0-5) /HPF Urine RBC (Auto) (0-2) /HPF U Epithel Cells (Auto) (FEW) /HPF Urine Bacteria (Auto) (NEGATIVE) /HPF Urine RBC (0-5) Jason/ul Urine Mucus (Auto) (NEGATIVE) /HPF Ur Culture Indicated? Urine Glucose (NEGATIVE) mg/dL Influenza Type A Ag (NEGATIVE) Influenza Type B Ag (NEGATIVE) RSV (PCR) (Negative) SARS-CoV-2 (PCR) (NEGATIVE) 07/11/21 07/11/21 07/11/21 Range/Units 14:48 16:36 21:38 WBC (4.0-10.5) x10^3/uL RBC (4.1-5.4) x10^6/uL Hgb (12.0-16.0) g/dL Hct (35-47) % MCV (78-100) fL MCH (26-32) pg MCHC (32-36) g/dL RDW (11.5-14.0) % Plt Count (150-450) x10^3/uL MPV (7.5-11.0) fL Gran % (36.0-66.0) % Immature Gran % (Auto) (0.00-0.4) % Nucleat RBC Rel Count (0.00-0.1) % Eos # (Auto) (0-0.5) x10^3/uL Immature Gran # (Auto) (0.00-0.03) x10^3u/L Absolute Lymphs (auto) (1.0-4.6) x10^3/uL Absolute Monos (auto) (0.0-1.3) x10^3/uL Absolute Nucleated RBC (0.00-0.01) x10^3u/L Lymphocytes % (24.0-44.0) % Monocytes % (0.0-12.0) % Eosinophils % (0.00-5.0) % Basophils % (0.0-0.4) % Absolute Granulocytes (1.4-6.9) x10^3/uL Basophils # (0-0.4) x10^3/uL Sodium (137-145) mmol/L Potassium (3.5-5.1) mmol/L Chloride (98-107) mmol/L Carbon Dioxide (22-30) mmol/L Anion Gap (5-15) MEQ/L BUN (7-17) mg/dL Creatinine (0.52-1.04) mg/dL Estimated GFR ML/MIN Glucose (74-106) mg/dL POC Glucometer 143 H 262 H (74 to 106) mg/dL Lactic Acid (0.4-2.0) Calcium (8.4-10.2) mg/dL Magnesium (1.6-2.3) mg/dL Total Bilirubin (0.2-1.3) mg/dL AST (14-36) U/L ALT (0-35) U/L Alkaline Phosphatase (38-126) U/L Troponin I < 0.012 (0.000-0.034) ng/mL NT-Pro-B Natriuret Pep (0-1800) pg/mL Serum Total Protein (6.3-8.2) g/dL Albumin (3.5-5.0) g/dL Prealbumin (17.6-36.0) mg/dL Lipase (23-300) U/L TSH 3rd Generation (0.47-4.68) mIU/L Urinalys Dipstick Clnc Urine Color (YELLOW) Urine Appearance (CLEAR) Urine pH (5-6) Ur Specific [place] (1.005-1.025) POC Urine Protein Conf (Negative) Urine Ketones (NEGATIVE) Urine Nitrite (NEGATIVE) Urine Bilirubin (NEGATIVE) Urine Urobilinogen (0-1) mg/dL Urine Leukocytes (NEGATIVE) Urine WBC (Auto) (0-5) /HPF Urine RBC (Auto) (0-2) /HPF U Epithel Cells (Auto) (FEW) /HPF Urine Bacteria (Auto) (NEGATIVE) /HPF Urine RBC (0-5) Jason/ul Urine Mucus (Auto) (NEGATIVE) /HPF Ur Culture Indicated? Urine Glucose (NEGATIVE) mg/dL Influenza Type A Ag (NEGATIVE) Influenza Type B Ag (NEGATIVE) RSV (PCR) (Negative) SARS-CoV-2 (PCR) (NEGATIVE) 07/11/21 07/12/21 07/12/21 Range/Units Unknown 04:18 04:18 WBC 6.3 (4.0-10.5) x10^3/uL RBC 4.40 (4.1-5.4) x10^6/uL Hgb 13.8 (12.0-16.0) g/dL Hct 41.3 (35-47) % MCV 93.9 (78-100) fL MCH 31.4 (26-32) pg MCHC 33.4 (32-36) g/dL RDW 13.6 (11.5-14.0) % Plt Count 200 (150-450) x10^3/uL MPV 12.1 H (7.5-11.0) fL Gran % 59.9 (36.0-66.0) % Immature Gran % (Auto) 0.3 (0.00-0.4) % Nucleat RBC Rel Count 0.0 (0.00-0.1) % Eos # (Auto) 0.05 (0-0.5) x10^3/uL Immature Gran # (Auto) 0.02 (0.00-0.03) x10^3u/L Absolute Lymphs (auto) 1.34 (1.0-4.6) x10^3/uL Absolute Monos (auto) 1.07 (0.0-1.3) x10^3/uL Absolute Nucleated RBC 0.00 (0.00-0.01) x10^3u/L Lymphocytes % 21.4 L (24.0-44.0) % Monocytes % 17.1 H (0.0-12.0) % Eosinophils % 0.8 (0.00-5.0) % Basophils % 0.5 (0.0-0.4) % Absolute Granulocytes 3.75 (1.4-6.9) x10^3/uL Basophils # 0.03 (0-0.4) x10^3/uL Sodium 132 L (137-145) mmol/L Potassium 3.8 (3.5-5.1) mmol/L Chloride 100 (98-107) mmol/L Carbon Dioxide 28 (22-30) mmol/L Anion Gap 8.2 (5-15) MEQ/L BUN 16 (7-17) mg/dL Creatinine 1.17 H (0.52-1.04) mg/dL Estimated GFR 47.8 ML/MIN Glucose 155 H (74-106) mg/dL POC Glucometer (74 to 106) mg/dL Lactic Acid (0.4-2.0) Calcium 8.2 L (8.4-10.2) mg/dL Magnesium (1.6-2.3) mg/dL Total Bilirubin 0.50 (0.2-1.3) mg/dL AST 28 (14-36) U/L ALT 20 (0-35) U/L Alkaline Phosphatase 119 (38-126) U/L Troponin I (0.000-0.034) ng/mL NT-Pro-B Natriuret Pep (0-1800) pg/mL Serum Total Protein 5.6 L (6.3-8.2) g/dL Albumin 2.9 L (3.5-5.0) g/dL Prealbumin (17.6-36.0) mg/dL Lipase (23-300) U/L TSH 3rd Generation (0.47-4.68) mIU/L Urinalys Dipstick Clnc Urine Color (YELLOW) Urine Appearance (CLEAR) Urine pH (5-6) Ur Specific [place] (1.005-1.025) POC Urine Protein Conf (Negative) Urine Ketones (NEGATIVE) Urine Nitrite (NEGATIVE) Urine Bilirubin (NEGATIVE) Urine Urobilinogen (0-1) mg/dL Urine Leukocytes (NEGATIVE) Urine WBC (Auto) (0-5) /HPF Urine RBC (Auto) (0-2) /HPF U Epithel Cells (Auto) (FEW) /HPF Urine Bacteria (Auto) (NEGATIVE) /HPF Urine RBC (0-5) Jason/ul Urine Mucus (Auto) (NEGATIVE) /HPF Ur Culture Indicated? Urine Glucose (NEGATIVE) mg/dL Influenza Type A Ag NEGATIVE (NEGATIVE) Influenza Type B Ag NEGATIVE (NEGATIVE) RSV (PCR) NEGATIVE (Negative) SARS-CoV-2 (PCR) NEGATIVE (NEGATIVE) 07/12/21 Range/Units 07:23 WBC (4.0-10.5) x10^3/uL RBC (4.1-5.4) x10^6/uL Hgb (12.0-16.0) g/dL Hct (35-47) % MCV (78-100) fL MCH (26-32) pg MCHC (32-36) g/dL RDW (11.5-14.0) % Plt Count (150-450) x10^3/uL MPV (7.5-11.0) fL Gran % (36.0-66.0) % Immature Gran % (Auto) (0.00-0.4) % Nucleat RBC Rel Count (0.00-0.1) % Eos # (Auto) (0-0.5) x10^3/uL Immature Gran # (Auto) (0.00-0.03) x10^3u/L Absolute Lymphs (auto) (1.0-4.6) x10^3/uL Absolute Monos (auto) (0.0-1.3) x10^3/uL Absolute Nucleated RBC (0.00-0.01) x10^3u/L Lymphocytes % (24.0-44.0) % Monocytes % (0.0-12.0) % Eosinophils % (0.00-5.0) % Basophils % (0.0-0.4) % Absolute Granulocytes (1.4-6.9) x10^3/uL Basophils # (0-0.4) x10^3/uL Sodium (137-145) mmol/L Potassium (3.5-5.1) mmol/L Chloride (98-107) mmol/L Carbon Dioxide (22-30) mmol/L Anion Gap (5-15) MEQ/L BUN (7-17) mg/dL Creatinine (0.52-1.04) mg/dL Estimated GFR ML/MIN Glucose (74-106) mg/dL POC Glucometer 171 H (74 to 106) mg/dL Lactic Acid (0.4-2.0) Calcium (8.4-10.2) mg/dL Magnesium (1.6-2.3) mg/dL Total Bilirubin (0.2-1.3) mg/dL AST (14-36) U/L ALT (0-35) U/L Alkaline Phosphatase (38-126) U/L Troponin I (0.000-0.034) ng/mL NT-Pro-B Natriuret Pep (0-1800) pg/mL Serum Total Protein (6.3-8.2) g/dL Albumin (3.5-5.0) g/dL Prealbumin (17.6-36.0) mg/dL Lipase (23-300) U/L TSH 3rd Generation (0.47-4.68) mIU/L Urinalys Dipstick Clnc Urine Color (YELLOW) Urine Appearance (CLEAR) Urine pH (5-6) Ur Specific [place] (1.005-1.025) POC Urine Protein Conf (Negative) Urine Ketones (NEGATIVE) Urine Nitrite (NEGATIVE) Urine Bilirubin (NEGATIVE) Urine Urobilinogen (0-1) mg/dL Urine Leukocytes (NEGATIVE) Urine WBC (Auto) (0-5) /HPF Urine RBC (Auto) (0-2) /HPF U Epithel Cells (Auto) (FEW) /HPF Urine Bacteria (Auto) (NEGATIVE) /HPF Urine RBC (0-5) Jason/ul Urine Mucus (Auto) (NEGATIVE) /HPF Ur Culture Indicated? Urine Glucose (NEGATIVE) mg/dL Influenza Type A Ag (NEGATIVE) Influenza Type B Ag (NEGATIVE) RSV (PCR) (Negative) SARS-CoV-2 (PCR) (NEGATIVE) Accuchecks Date 07/12/21 Date 07/11/21 Date 07/11/21 Time 07:20 Time 21:30 Time 16:30 - Radiology Impressions Radiology Exams & Impressions: Radiology Procedures Category Date Time Status CHEST 1 VIEW (PORTABLE) Stat Exams 07/11/21 08:56 Completed HEAD WITHOUT CONTRAST [CT] Stat Exams 07/11/21 11:31 Completed SHOULDER Stat Exams 07/11/21 09:51 Completed Assessment/Plan (1) Frequent falls Current Visit: Yes Status: Acute Assessment & Plan: chronic but worse since CVA Code(s): R29.6 - REPEATED FALLS (2) Generalized weakness Current Visit: Yes Status: Acute Code(s): R53.1 - WEAKNESS (3) Hemiparesis affecting right side as late effect of cerebrovascular accident Current Visit: Yes Status: Chronic Code(s): I69.351 - HEMIPLGA FOLLOWING CEREBRAL INFRC AFF RIGHT DOMINANT SIDE (4) IDDM (insulin dependent diabetes mellitus) Current Visit: No Status: Chronic Assessment & Plan: monitor Code(s): DQO2383 -
[2021-07-12] MEDS: SYNTHROID 100 MCG PO SCH (09:29)
[2021-07-12] MEDS: NORVASC 5 MG PO SCH (09:29)
[2021-07-12] MEDS: HUMALOG SQ SCH ×3 (09:29→17:42)
[2021-07-12] MEDS: ECOTRIN 81 MG PO SCH (09:29)
[2021-07-12] MEDS: Toprol Xl 50 MG PO SCH (09:29)
[2021-07-12] MEDS: ZOCOR 20MG PO SCH (09:29)
[2021-07-12] MEDS: Pepcid 20 MG PO SCH (09:29)
[2021-07-12] MEDS: Protonix 40MG Tablet PO SCH (09:29)
[2021-07-12] MEDS: Lasix 40 MG PO SCH (09:30)
[2021-07-12] MEDS: Imdur 60MG PO SCH (09:30)
[2021-07-12] MEDS: NEURONTIN PO SCH (09:30)
[2021-07-12] MEDS: Lantus Insulin SQ SCH ×2 (09:30→09:36)
[2021-07-12] MEDS: PROZAC 10 MG PO SCH (09:30)
[2021-07-12] MEDS: ZYLOPRIM 300 MG PO SCH (09:30)
[2021-07-12] MEDS ORDERED: PROTONIX 40 MG IV IV SCH (10:00)
[2021-07-12] MEDS ORDERED: NON-FORMULARY ITEM (Insulin Detemir [Levemir] 100 UNIT/ML Vial) SQ SCH (10:00)
[2021-07-12] MEDS ORDERED: LIPITOR 40MG PO SCH (10:00)
[2021-07-12] MEDS ORDERED: NON-FORMULARY ITEM (Omeprazole [Prilosec] 40 MG Cap) PO SCH (10:00)
[2021-07-12] MEDS: lamICTAL 100MG TABLET PO SCH ×2 (10:04→20:58)
[2021-07-12] MEDS: TYLENOL 325 MG PO PRN ×2 (10:05→20:57)
[2021-07-12] MEDS ORDERED: PATIENT OWN MEDICATION PO SCH (14:00)
[2021-07-12 18:14] LABS: INFLUENZA A NEGATIVE (NEGATIVE); INFLUENZA B NEGATIVE (NEGATIVE); RESPIRATORY SYNCTIAL VIRUS NEGATIVE (Negative); SARS-CoV-2 Xpert Express NEGATIVE (NEGATIVE)
[2021-07-12] MEDS ORDERED: LAMOTRIGINE 300 MG PO SCH (22:00)
[2021-07-12] MEDS ORDERED: Lantus Insulin SQ SCH (22:00)
[2021-07-13] MEDS: HUMALOG SQ SCH ×2 (09:01→12:52)
[2021-07-13 09:19] LABS: Absolute Neutrophil Ct (ANC) 3.87 x10^3/uL (1.4-6.9); Basophil (Absolute #) 0.02 x10^3/uL (0-0.4); Eosinophil % 1.4 % (0.00-5.0); Eosinophil (Absolute #) 0.08 x10^3/uL (0-0.5); Hematocrit 42.6 % (35-47); Hemoglobin 14.4 g/dL (12.0-16.0); Lymphocyte (Absolute #) 1.04 x10^3/uL (1.0-4.6); Lymphocytes % 18.1 % (24.0-44.0); Mean Cell Volume 94.5 fL (78-100); Mean Corpuscular Hemoglobin 31.9 pg (26-32); Mean Corpuscular Hgb Concent. 33.8 g/dL (32-36); Mean Platelet Volume 11.6 fL (7.5-11.0); Monocyte (Absolute #) 0.71 x10^3/uL (0.0-1.3); Monocytes % 12.4 % (0.0-12.0); Neutrophil % 67.5 % (36.0-66.0); Platelet Count 169 x10^3/uL (150-450); Red Blood Count 4.51 x10^6/uL (4.1-5.4); Red Cell Distribution Width 13.3 % (11.5-14.0); White Blood Count 5.7 x10^3/uL (4.0-10.5)
[2021-07-13 09:23] LABS: ANION GAP 10.2 MEQ/L (5-15); BILIRUBIN,TOTAL 0.6 mg/dL (0.2-1.3); Calcium 8.5 mg/dL (8.4-10.2); Creatinine 1 1.12 mg/dL (0.52-1.04); EST GLOMERULAR FILTRATION RATE 50.3 ML/MIN; Potassium 3.6 mmol/L (3.5-5.1); Total Protein 5.8 g/dL (6.3-8.2)
[2021-07-13 10:12] LABS: MAGNESIUM 1.5 mg/dL (1.6-2.3); TSH, 3RD Generation 0.915 mIU/L (0.47-4.68)
[2021-07-13] MEDS: NORVASC 5 MG PO SCH (10:28)
[2021-07-13] MEDS: SYNTHROID 100 MCG PO SCH (10:28)
[2021-07-13] MEDS: Lasix 40 MG PO SCH (10:28)
[2021-07-13] MEDS: ZOCOR 20MG PO SCH (10:28)
[2021-07-13] MEDS: ECOTRIN 81 MG PO SCH (10:28)
[2021-07-13] MEDS: Toprol Xl 50 MG PO SCH (10:29)
[2021-07-13] MEDS: NEURONTIN PO SCH (10:29)
[2021-07-13] MEDS: Pepcid 20 MG PO SCH (10:29)
[2021-07-13] MEDS: Imdur 60MG PO SCH (10:29)
[2021-07-13] MEDS: lamICTAL 100MG TABLET PO SCH (10:29)
[2021-07-13] MEDS: Protonix 40MG Tablet PO SCH (10:29)
[2021-07-13] MEDS: ZYLOPRIM 300 MG PO SCH (10:30)
[2021-07-13] MEDS: PROZAC 10 MG PO SCH (10:30)
[2021-07-13 11:34] VITALS: BP 148/70; PULSE 69; O2SAT 96
[2021-07-13] MEDS ORDERED: Magnesium 1 Gm / 100 Ml D5W*** 100 ML IV ONE (13:30)
--- NOTE | 2021-07-13 13:48 | PCM.DCORD ---
- Discharge Disposition: DC TO [facility] Condition: Stable Prescriptions: New Acetaminophen 325 mg [Tylenol 325 mg] 650 mg PO Q4H PRN PRN tablet PRN Reason: Pain And/Or Fever Cyanocobalamin 500 Mcg [Vitamin B-12 500 MCG] 500 mcg PO DAILY #30 tablet Continue Gabapentin 300 mg PO DAILY Allopurinol 300 mg [Zyloprim 300 mg] 300 mg PO DAILY Metoprolol Succinate 50 mg [Toprol Xl 50 MG] 50 mg PO DAILY Isosorbide Mononitrate 60 mg [Imdur 60MG] 60 mg PO DAILY Omeprazole [Prilosec] 40 mg PO DAILY Levothyroxine Sodium 100 Mcg [Synthroid 100 Mcg] 100 mcg PO DAILY Furosemide 40 mg [Lasix 40 MG] 80 mg PO DAILY Mifepristone [Korlym] 300 mg PO 3XW Insulin Aspart [Novolog] 25 units SQ TID Insulin Detemir [Levemir] 26 units SQ DAILY Famotidine 20 mg [Pepcid 20 MG] 1 ea PO DAILY Atorvastatin Calcium [Lipitor] 40 mg DAILY Amlodipine Besylate 2.5 mg PO DAILY Aspirin EC 81 mg [Ecotrin 81 mg] 81 mg PO DAILY Fluoxetine HCl 10 mg [Prozac 10 mg] 10 mg PO DAILY Lamotrigine [Lamotrigine ER] 300 mg PO HS Additional Instructions: HALF-WAY ORDERS: ADMIT TO [facility] ACCU CHECKS CONSISTENT CARB DIET PT/OT EVAL SEE ATTACHED MED LIST Follow up with: JUNAID MASSEY DO [Primary Care Provider] - LUIS ANGEL AGUIRRE NP [Family Provider] -
[2021-07-14] MEDS ORDERED: Vitamin B-12 500 MCG PO SCH (10:00)
== END 2021-07-13 14:53 ==
LOC: ED 08:14 → MED SURG 14:57
PROVIDERS: ADMIT Family Medicine; ATTEND Family Medicine
DX: R53.1 Weakness (principal); I69.351 Hemiplegia and hemiparesis following cerebral infarction affecting right dominant side; E11.9 Type 2 diabetes mellitus without complications; R29.6 Repeated falls; I10 Essential (primary) hypertension; I25.2 Old myocardial infarction; Z20.828 Contact with and (suspected) exposure to other viral communicable diseases; S50.811A Abrasion of right forearm, initial encounter; Z79.899 Other long term (current) drug therapy; R51.9 Headache, unspecified
CPT/HCPCS: 0241U; 36000; 36415; 70450; 71045; 73030; 80053; 81015; 82607; 82947; 83605; 83690; 83735; 83880; 84134; 84443; 84484; 85025; 87040; 93005; 93268; 96360; 96374; 97110; 97161; 99285; G0378; J1817; J2405; J3475; A9270-GY

== ENCOUNTER 2023-09-01 13:49 | Emergency (ER) | payer MEDICARE, OTHER ==
--- NOTE | 2023-09-01 13:51 | ERPHSYRPT ---
- History of Present Illness Time Seen by Provider: 09/01/23 13:50 Source: patient, EMS, old records Exam Limitations: clinical condition Physician History: This is a morbidly obese 77-year-old white female patient of Dr. Robles who was brought into the emergency department by the ambulance service. At approximately noon today, prior to arrival, the patient suddenly became weak "all over" ". Patient has had history of a stroke in the past. She also has a history of seizure disorder. Patient's neurostatus on arrival to the emergency department yielded an NIHSS score 4. Her speech was a little slurred and she did have very minor problem with a few of the questions asked. Patient also complains of a headache. Patient did not hit her head. She denies chest pain. She denies shortness of breath. She has no abdominal pain. The paramedics stated that her blood sugar was 181. Patient has a history of hypothyroidism, gastroesophageal reflux disease, insulin-dependent diabetes, hyperlipidemia, and hypertension. I reviewed the radiologist interpretation of a CT scan of the head without contrast that was performed on 07/11/2021 which showed a nonacute, senile brain with old infarct of the left internal capsule. I also reviewed and interpreted the twelve-lead EKG that was performed on 07/11/2021. That twelve- lead EKG shows a heart rate of 64 and a normal sinus rhythm with a normal axis deviation, normal intervals and a right bundle branch block without evidence of any acute ischemia. Timing/Duration: today Severity: mild Character of Deficits: impaired speech Deficits: decrease ability to stand (Because of generalized weakness), weak Baseline/Normal Cognition: alert oriented x 3 Current Cognition: alert oriented x 3 Associated Symptoms: weakness, other (Not attempted secondary to her weakness) Allergies/Adverse Reactions: dulaglutide [From [facility]] Allergy (Verified 07/11/21 15:39) Stomach Pain walnut Allergy (Verified 07/11/21 15:39) Home Medications: Allopurinol 300 mg [Zyloprim 300 mg] 300 mg PO DAILY 10/08/15 [History] Gabapentin 300 mg PO DAILY 10/08/15 [History] Isosorbide Mononitrate 60 mg [Imdur 60MG] 60 mg PO DAILY 10/08/15 [History] Metoprolol Succinate 50 mg [Toprol Xl 50 MG] 50 mg PO DAILY 10/08/15 [History] Omeprazole [Prilosec] 40 mg PO DAILY 10/08/15 [History] Furosemide 40 mg [Lasix 40 MG] 80 mg PO DAILY 11/02/19 [History] Levothyroxine Sodium 100 Mcg [Synthroid 100 Mcg] 100 mcg PO DAILY 11/02/19 [History] Mifepristone [Korlym] 300 mg PO 3XW 11/02/19 [History] Amlodipine Besylate 2.5 mg PO DAILY 08/23/20 [History] Atorvastatin Calcium [Lipitor] 40 mg DAILY 08/23/20 [History] Famotidine 20 mg [Pepcid 20 MG] 1 ea PO DAILY 08/23/20 [History] Insulin Aspart [Novolog] 25 units SQ TID 08/23/20 [History] Insulin Detemir [Levemir] 26 units SQ DAILY 08/23/20 [History] Aspirin EC 81 mg [Ecotrin 81 mg] 81 mg PO DAILY 05/22/21 [History] Fluoxetine HCl 10 mg [Prozac 10 mg] 10 mg PO DAILY 07/11/21 [History] Lamotrigine [Lamotrigine ER] 300 mg PO HS 07/11/21 [History] Hx Tetanus, Diphtheria Vaccination/Date Given: Yes Hx Influenza Vaccination/Date Given: Yes Hx Pneumococcal Vaccination/Date Given: Yes Travel Risk - International Travel Have you traveled outside of the country in past 3 weeks: No - Emerging Infectious Disease Are you exhibiting symptoms associated with any current EIDs: No - Review of Systems Constitutional: Weakness Eyes: No Symptoms Ears, Nose, & Throat: No Symptoms Respiratory: No Symptoms Cardiac: No Symptoms Abdominal/Gastrointestinal: No Symptoms Genitourinary Symptoms: No Symptoms Musculoskeletal: No Symptoms Skin: No Symptoms Neurological: Headache Psychological: No Symptoms Endocrine: No Symptoms Hematologic/Lymphatic: No Symptoms Immunological/Allergic: No Symptoms All Other Systems: Reviewed and Negative - Past Medical History Pertinent Past Medical History: Yes Neurological History: Seizures, Stroke ENT History: Cataracts, Macular Degeneration Cardiac History: Hypertension, Myocardial Infarction ([place]) Respiratory History: Other Endocrine Medical History: Diabetes Type II Musculoskeletal History: Osteoarthritis GI Medical History: Gallbladder Disease, Hemorrhoids, Hernia History: No Pertinent History, Renal Disease Psycho-Social History: No Pertinent History, Depression Female Reproductive Disorders: No Pertinent History Other Medical History: SX HX: BILATERAL TOTAL KNEE REPLACEMENTS WITH MOST RECENT, FOOT SURGERY FOR HEEL SPURS, CHOLECYSTECOMY, HYSTERECTOMY. 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 OBESITY WITH BMI 41.1 KG/M2 - Past Surgical History Past Surgical History: Yes Neuro Surgical History: No Pertinent History Cardiac: Cardiac Catheterization Respiratory: No Pertinent History Gastrointestinal: Cholecystectomy Genitourinary: No Pertinent History Musculoskeletal: Joint Replacement, Orthopedic Surgery Female Surgical History: Hysterectomy Other Surgical History: guzman. knee replacements, rib fx. ,guzman feet spurs removed - Social History Smoking Status: Never smoker Exposure to second hand smoke: No Drug Use: none Patient Lives Alone: No - Nursing Vital Signs Nursing Vital Signs: Initial Vital Signs Temperature 100.4 F 09/01/23 13:52 Pulse Rate 114 H 09/01/23 13:52 Respiratory Rate 20 09/01/23 13:52 Blood Pressure 105/64 09/01/23 13:52 O2 Sat by Pulse Oximetry 92 L 09/01/23 13:52 Pain Scale Pain Intensity 0 - Edmonson Coma Scale Best Eye Response (Edmonson): (4) open spontaneously Best Verbal Response (Edmonson): (5) oriented Best Motor Response (Kirit): (6) obeys commands Kirit Total: 15 - Physical Exam General Appearance: no apparent distress, alert, obese Eye Exam: bilateral eye: normal inspection, PERRL, EOMI Ears, Nose, Throat Exam: normal ENT inspection, moist mucous membranes Neck Exam: normal inspection, non-tender, supple, full range of motion Respiratory: normal breath sounds, lungs clear, airway intact, No chest tenderness, No respiratory distress Cardiovascular: normal peripheral pulses, tachycardia, irregular Gastrointestinal: soft, normal bowel sounds, No tenderness Pelvic Exam: not done Rectal Exam: not done Back Exam: normal inspection, normal range of motion, No CVA tenderness, No vertebral tenderness Extremity Exam: normal inspection, normal range of motion, pelvis stable Mental Status: alert, depressed affect, 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 I do not definitely appreciate ST elevation in this EKG. We will consult cardiology.) Ordered Tests: Active Orders 24 hr Category Date Time Status Furniture Duster STAT Care 09/01/23 14:01 Active EKG-ER Only STAT Care 09/01/23 14:00 Active IV Insertion STAT Care 09/01/23 14:00 Active NPO (ED) STAT Care 09/01/23 14:00 Active CHEST 1 VIEW (PORTABLE) Stat Exams 09/01/23 14:00 Completed HEAD WITHOUT CONTRAST [CT] Stat Exams 09/01/23 14:00 Completed BLOOD CULTURE Stat Lab 09/01/23 14:21 Received CBC W DIFF Stat Lab 09/01/23 14:10 Completed CMP Stat Lab 09/01/23 14:10 Completed CULTURE,URINE Stat Lab 09/01/23 14:21 Received Lactic Acid Stat Lab 09/01/23 14:00 Completed Lactic Acid Stat Lab 09/01/23 16:10 Completed MAGNESIUM Stat Lab 09/01/23 14:10 Completed MONO SCREEN Stat Lab 09/01/23 14:10 Completed PROTIME WITH INR Stat Lab 09/01/23 14:10 Completed TROPONIN Stat Lab 09/01/23 14:00 Completed TROPONIN Stat Lab 09/01/23 18:02 Received TSH [TSH, 3RD Generation] Stat Lab 09/01/23 14:00 Completed UA W/RFX UR CULTURE Stat Lab 09/01/23 14:21 Completed Medication Summary Generic Name Dose Route Start Last Admin Trade Name Freq PRN Reason Stop Dose Admin Sodium Chloride 1,000 mls @ 100 mls/hr 09/01/23 14:00 09/01/23 14:04 Sodium Chloride 0.9% 1000 Ml IV 10/01/23 13:59 100 mls/hr .Q10H TRACY Administration Discontinued Medications Generic Name Dose Route Start Last Admin Trade Name Freq PRN Reason Stop Dose Admin Ceftriaxone Sodium 1 gm in 100 mls @ 200 mls/hr 09/01/23 16:22 09/01/23 17:40 Rocephin 1 Gm / 100 Ml Nacl IV 09/01/23 16:51 Infused STAT ONE Infusion Ceftriaxone Sodium Confirm 09/01/23 16:41 Rocephin 1 Gm / 100 Ml Nacl Administered 09/01/23 16:42 Dose 1 gm in 100 mls @ ud IV .STK-MED ONE Lab/Rad Data: Laboratory Result Diagrams 09/01/23 14:10 09/01/23 14:10 Laboratory Results 09/01/23 09/01/23 09/01/23 Range/Units 16:10 14:21 14:21 WBC (3.98-10.04) x10^3/uL RBC (3.93-5.22) x10^6/uL Hgb (11.2-15.7) g/dL Hct (34.1-44.9) % MCV (79.4-94.8) fL MCH (25.6-32.2) pg MCHC (32.2-35.5) g/dL RDW (11.7-14.4) % Plt Count (182-369) x10^3/uL MPV (9.4-12.3) fL Gran % (34.0-71.1) % Immature Gran % (Auto) (0.001-0.429) % Nucleat RBC Rel Count (0.00-0.2) % Eos # (Auto) (0.04-0.36) x10^3/uL Immature Gran # (Auto) (0.001-0.031) x10^3u/L Absolute Lymphs (auto) (1.18-3.74) x10^3/uL Absolute Monos (auto) (0.24-0.86) x10^3/uL Absolute Nucleated RBC (0.00-0.012) x10^3u/L Lymphocytes % (19.3-51.7) % Monocytes % (4.7-12.5) % Eosinophils % (0.7-5.8) % Basophils % (0.1-1.2) % Absolute Granulocytes (1.56-6.13) x10^3/uL Basophils # (0.01-0.08) x10^3/uL PT (9.4-12.5) SECONDS INR (0.8-3.0) Sodium (135-145) mmol/L Potassium (3.5-5.1) mmol/L Chloride (98-107) mmol/L Carbon Dioxide (22-30) mmol/L Anion Gap (5-15) MEQ/L BUN (7-17) mg/dL Creatinine (0.52-1.04) mg/dL Estimated GFR ML/MIN Glucose (74-106) mg/dL Lactic Acid 3.5 H (0.4-2.0) Calcium (8.4-10.2) mg/dL Magnesium (1.6-2.3) mg/dL Total Bilirubin (0.2-1.3) mg/dL AST (14-36) U/L ALT (0-35) U/L Alkaline Phosphatase (38-126) U/L Ammonia (9-30) umol/L Troponin I (0.000-0.033) ng/mL Serum Total Protein (6.3-8.2) g/dL Albumin (3.5-5.0) g/dL Free T4 (0.78-2.19) ng/dL TSH 3rd Generation (0.470-4.680) mIU/L Urine Color Dark Yellow A (Yellow) Urine Appearance Turbid A (Clear) Urine pH 5.5 (4.6-8.0) Ur Specific [place] 1.015 (1.005-1.030) Urine Protein 100 A (Negative) Urine Glucose (UA) Negative (Negative) mg/dL Urine Ketones Trace A (Negative) Urine Blood Large A (Negative) Urine Nitrite Negative (Negative) Urine Bilirubin Negative (Negative) Urine Urobilinogen 2.0 A (0.2) mg/dL Ur Leukocyte Esterase Large A (Negative) U Hyaline Cast (Auto) 6-10 A (0-2) /LPF Urine Microscopic RBC 21-50 A (0-5) /HPF Urine Microscopic WBC >100 A (0-5) /HPF Ur Epithelial Cells Rare (None Seen) /HPF Urine Bacteria Many A (None Seen) /HPF Urine Culture Reflexed YES (NO) Monoscreen (NEGATIVE) Influenza Type A Ag NEGATIVE (NEGATIVE) Influenza Type B Ag NEGATIVE (NEGATIVE) RSV (PCR) NEGATIVE (NEGATIVE) SARS-CoV-2 (PCR) NEGATIVE (NEGATIVE) Slides for Path Review 09/01/23 09/01/23 09/01/23 Range/Units 14:10 14:10 14:10 WBC (3.98-10.04) x10^3/uL RBC (3.93-5.22) x10^6/uL Hgb (11.2-15.7) g/dL Hct (34.1-44.9) % MCV (79.4-94.8) fL MCH (25.6-32.2) pg MCHC (32.2-35.5) g/dL RDW (11.7-14.4) % Plt Count (182-369) x10^3/uL MPV (9.4-12.3) fL Gran % (34.0-71.1) % Immature Gran % (Auto) (0.001-0.429) % Nucleat RBC Rel Count (0.00-0.2) % Eos # (Auto) (0.04-0.36) x10^3/uL Immature Gran # (Auto) (0.001-0.031) x10^3u/L Absolute Lymphs (auto) (1.18-3.74) x10^3/uL Absolute Monos (auto) (0.24-0.86) x10^3/uL Absolute Nucleated RBC (0.00-0.012) x10^3u/L Lymphocytes % (19.3-51.7) % Monocytes % (4.7-12.5) % Eosinophils % (0.7-5.8) % Basophils % (0.1-1.2) % Absolute Granulocytes (1.56-6.13) x10^3/uL Basophils # (0.01-0.08) x10^3/uL PT 11.4 (9.4-12.5) SECONDS INR 1.05 (0.8-3.0) Sodium (135-145) mmol/L Potassium (3.5-5.1) mmol/L Chloride (98-107) mmol/L Carbon Dioxide (22-30) mmol/L Anion Gap (5-15) MEQ/L BUN (7-17) mg/dL Creatinine (0.52-1.04) mg/dL Estimated GFR ML/MIN Glucose (74-106) mg/dL Lactic Acid (0.4-2.0) Calcium (8.4-10.2) mg/dL Magnesium (1.6-2.3) mg/dL Total Bilirubin (0.2-1.3) mg/dL AST (14-36) U/L ALT (0-35) U/L Alkaline Phosphatase (38-126) U/L Ammonia < 9 L (9-30) umol/L Troponin I (0.000-0.033) ng/mL Serum Total Protein (6.3-8.2) g/dL Albumin (3.5-5.0) g/dL Free T4 (0.78-2.19) ng/dL TSH 3rd Generation (0.470-4.680) mIU/L Urine Color (Yellow) Urine Appearance (Clear) Urine pH (4.6-8.0) Ur Specific [place] (1.005-1.030) Urine Protein (Negative) Urine Glucose (UA) (Negative) mg/dL Urine Ketones (Negative) Urine Blood (Negative) Urine Nitrite (Negative) Urine Bilirubin (Negative) Urine Urobilinogen (0.2) mg/dL Ur Leukocyte Esterase (Negative) U Hyaline Cast (Auto) (0-2) /LPF Urine Microscopic RBC (0-5) /HPF Urine Microscopic WBC (0-5) /HPF Ur Epithelial Cells (None Seen) /HPF Urine Bacteria (None Seen) /HPF Urine Culture Reflexed (NO) Monoscreen NEGATIVE (NEGATIVE) Influenza Type A Ag (NEGATIVE) Influenza Type B Ag (NEGATIVE) RSV (PCR) (NEGATIVE) SARS-CoV-2 (PCR) (NEGATIVE) Slides for Path Review 09/01/23 09/01/23 09/01/23 Range/Units 14:10 14:10 14:00 WBC 14.6 H (3.98-10.04) x10^3/uL RBC 4.87 (3.93-5.22) x10^6/uL Hgb 15.9 H (11.2-15.7) g/dL Hct 47.5 H (34.1-44.9) % MCV 97.5 H (79.4-94.8) fL MCH 32.6 H (25.6-32.2) pg MCHC 33.5 (32.2-35.5) g/dL RDW 14.6 H (11.7-14.4) % Plt Count 184 (182-369) x10^3/uL MPV 11.4 (9.4-12.3) fL Gran % 95.0 H (34.0-71.1) % Immature Gran % (Auto) 1.4 H (0.001-0.429) % Nucleat RBC Rel Count 0.0 (0.00-0.2) % Eos # (Auto) 0.01 L (0.04-0.36) x10^3/uL Immature Gran # (Auto) 0.21 H (0.001-0.031) x10^3u/L Absolute Lymphs (auto) 0.36 L (1.18-3.74) x10^3/uL Absolute Monos (auto) 0.10 L (0.24-0.86) x10^3/uL Absolute Nucleated RBC 0.00 (0.00-0.012) x10^3u/L Lymphocytes % 2.5 L (19.3-51.7) % Monocytes % 0.7 L (4.7-12.5) % Eosinophils % 0.1 L (0.7-5.8) % Basophils % 0.3 (0.1-1.2) % Absolute Granulocytes 13.91 H (1.56-6.13) x10^3/uL Basophils # 0.04 (0.01-0.08) x10^3/uL PT (9.4-12.5) SECONDS INR (0.8-3.0) Sodium 137 (135-145) mmol/L Potassium 3.4 L (3.5-5.1) mmol/L Chloride 104 (98-107) mmol/L Carbon Dioxide 20 L (22-30) mmol/L Anion Gap 16.1 H (5-15) MEQ/L BUN 16 (7-17) mg/dL Creatinine 1.75 H (0.52-1.04) mg/dL Estimated GFR 29.5 ML/MIN Glucose 180 H (74-106) mg/dL Lactic Acid (0.4-2.0) Calcium 8.7 (8.4-10.2) mg/dL Magnesium 1.7 (1.6-2.3) mg/dL Total Bilirubin 1.90 H (0.2-1.3) mg/dL AST 41 H (14-36) U/L ALT 34 (0-35) U/L Alkaline Phosphatase 181 H (38-126) U/L Ammonia (9-30) umol/L Troponin I (0.000-0.033) ng/mL Serum Total Protein 6.4 (6.3-8.2) g/dL Albumin 3.6 (3.5-5.0) g/dL Free T4 1.80 (0.78-2.19) ng/dL TSH 3rd Generation (0.470-4.680) mIU/L Urine Color (Yellow) Urine Appearance (Clear) Urine pH (4.6-8.0) Ur Specific [place] (1.005-1.030) Urine Protein (Negative) Urine Glucose (UA) (Negative) mg/dL Urine Ketones (Negative) Urine Blood (Negative) Urine Nitrite (Negative) Urine Bilirubin (Negative) Urine Urobilinogen (0.2) mg/dL Ur Leukocyte Esterase (Negative) U Hyaline Cast (Auto) (0-2) /LPF Urine Microscopic RBC (0-5) /HPF Urine Microscopic WBC (0-5) /HPF Ur Epithelial Cells (None Seen) /HPF Urine Bacteria (None Seen) /HPF Urine Culture Reflexed (NO) Monoscreen (NEGATIVE) Influenza Type A Ag (NEGATIVE) Influenza Type B Ag (NEGATIVE) RSV (PCR) (NEGATIVE) SARS-CoV-2 (PCR) (NEGATIVE) Slides for Path Review YES 09/01/23 09/01/23 Range/Units 14:00 14:00 WBC (3.98-10.04) x10^3/uL RBC (3.93-5.22) x10^6/uL Hgb (11.2-15.7) g/dL Hct (34.1-44.9) % MCV (79.4-94.8) fL MCH (25.6-32.2) pg MCHC (32.2-35.5) g/dL RDW (11.7-14.4) % Plt Count (182-369) x10^3/uL MPV (9.4-12.3) fL Gran % (34.0-71.1) % Immature Gran % (Auto) (0.001-0.429) % Nucleat RBC Rel Count (0.00-0.2) % Eos # (Auto) (0.04-0.36) x10^3/uL Immature Gran # (Auto) (0.001-0.031) x10^3u/L Absolute Lymphs (auto) (1.18-3.74) x10^3/uL Absolute Monos (auto) (0.24-0.86) x10^3/uL Absolute Nucleated RBC (0.00-0.012) x10^3u/L Lymphocytes % (19.3-51.7) % Monocytes % (4.7-12.5) % Eosinophils % (0.7-5.8) % Basophils % (0.1-1.2) % Absolute Granulocytes (1.56-6.13) x10^3/uL Basophils # (0.01-0.08) x10^3/uL PT (9.4-12.5) SECONDS INR (0.8-3.0) Sodium (135-145) mmol/L Potassium (3.5-5.1) mmol/L Chloride (98-107) mmol/L Carbon Dioxide (22-30) mmol/L Anion Gap (5-15) MEQ/L BUN (7-17) mg/dL Creatinine (0.52-1.04) mg/dL Estimated GFR ML/MIN Glucose (74-106) mg/dL Lactic Acid 5.3 H (0.4-2.0) Calcium (8.4-10.2) mg/dL Magnesium (1.6-2.3) mg/dL Total Bilirubin (0.2-1.3) mg/dL AST (14-36) U/L ALT (0-35) U/L Alkaline Phosphatase (38-126) U/L Ammonia (9-30) umol/L Troponin I 0.514 H* (0.000-0.033) ng/mL Serum Total Protein (6.3-8.2) g/dL Albumin (3.5-5.0) g/dL Free T4 (0.78-2.19) ng/dL TSH 3rd Generation 4.677 (0.470-4.680) mIU/L Urine Color (Yellow) Urine Appearance (Clear) Urine pH (4.6-8.0) Ur Specific [place] (1.005-1.030) Urine Protein (Negative) Urine Glucose (UA) (Negative) mg/dL Urine Ketones (Negative) Urine Blood (Negative) Urine Nitrite (Negative) Urine Bilirubin (Negative) Urine Urobilinogen (0.2) mg/dL Ur Leukocyte Esterase (Negative) U Hyaline Cast (Auto) (0-2) /LPF Urine Microscopic RBC (0-5) /HPF Urine Microscopic WBC (0-5) /HPF Ur Epithelial Cells (None Seen) /HPF Urine Bacteria (None Seen) /HPF Urine Culture Reflexed (NO) Monoscreen (NEGATIVE) Influenza Type A Ag (NEGATIVE) Influenza Type B Ag (NEGATIVE) RSV (PCR) (NEGATIVE) SARS-CoV-2 (PCR) (NEGATIVE) Slides for Path Review - Progress Progress Note: 09/01/23 16:23 My medical decision making and the assignment of moderate to high complexity of this patient's medical issue today is based on review of the patient's past medical history, review of patient's medication list, review of the patient's drug allergy list, history present illness and physical findings on examination. The workup in this patient includes placement of intravenous line, infusion of normal saline solution, urinalysis, CT scan of the head without contrast, CBC, CMP, magnesium level troponin level, ammonia level, viral swabs and monotest. Differential diagnosis including but not limited to acute intracranial abnormality, viral illness, UTI, electrolyte abnormalities, CT scan of the head without contrast was interpreted by the radiologist and I reviewed the impression. Depression states nonacute senile brain with remote infarct of the left internal capsule. There is a new but remote lacunar infarct of the right thalamus that was not seen on the comparison study dated 07/11/2021. There are no acute intracranial findings. 09/01/23 16:25 The chest x-ray was also interpreted by the radiologist and I reviewed the impression. Impression states nonacute chest with chronic features. I interpreted the patient's laboratory data results. The patient does have a leukocytosis with a left shift. The troponin is pending. She does have chronic renal disease with a low GFR. We are providing her with a low rate normal saline infusion. She has a significant urinary tract infection and has mild dehydration. This certainly can account for the patient's altered mental status and weakness. 09/01/23 16:56 I spoke with telecardiologist Dr. Garcia. He reviewed an old EKG, the first twelve-lead EKG today and then repeat twelve-lead EKG in approximately an hour after the other twelve-lead EKG today. His interpretation is none of these EKG show anything acute. 09/01/23 17:[address] Duke, the emergency room physician at [facility] in [facility]. He stated that they are declining the transfer. He spoke with banquet bartender, Dr. Guido and they have Truck Headlight [employer] today until 7 AM. However, tomorrow, 09/02/2023, beginning at 7 AM, they will not have cardiac Truck Headlight Assembler availability. 09/01/23 18:[address] Stevens, the hospitalist at [facility] in [facility]. I reviewed the patient history, physical findings, radiographic, EKG and laboratory data results with him. He had except the patient in transfer. Counseled pt/family regarding: lab results, diagnosis, rad results Medical Desision Making - Independent Historian Additional History obtained from: Manager Intranet/EMT - Discussion of managment Care discussed with:: hospitalist (At [facility], Dr. Silva) Will see patient: in hospital - Diagnostic Testing Diagnostic test were ordered, analyzed, and reviewed by me: Yes Radiological Interpretation: Reviewed by me, Teleradiologist Report - Risk of complications The pt has a high risk of morbidity or mortality based on: Decision regarding hospitilization or escalation of hosp level of care - Departure Departure Disposition: Transfer Clinical Impression: Altered mental status, Urinary tract infection, Elevated troponin, Acute on chronic renal failure, Sepsis Condition: Serious Critical Care Time: Yes Critical Care Time(excluding separately billable procedures): Critical 30-74 mins (45 minutes) Referrals: ELIGIO ROBLES DO [Primary Care Provider] - Follow up/PCP as directed
[2023-09-01 14:03] VITALS: TEMP 100.4
[2023-09-01] MEDS ORDERED: Sodium Chloride 0.9% 1000 ML 1,000 ML ONE (14:03)
[2023-09-01] MEDS: Sodium Chloride 0.9% 1000 ML 1,000 ML IV SCH (14:04)
[2023-09-01 14:09] LABS: Absolute Neutrophil Ct (ANC) 13.91 x10^3/uL (1.56-6.13); BASOPHIL % 0.3 % (0.1-1.2); Basophil (Absolute #) 0.04 x10^3/uL (0.01-0.08); Eosinophil % 0.1 % (0.7-5.8); Eosinophil (Absolute #) 0.01 x10^3/uL (0.04-0.36); Hematocrit 47.5 % (34.1-44.9); Hemoglobin 15.9 g/dL (11.2-15.7); IMMATURE GRAN # 0.21 x10^3u/L (0.001-0.031); IMMATURE GRAN % 1.4 % (0.001-0.429); Lymphocyte (Absolute #) 0.36 x10^3/uL (1.18-3.74); Lymphocytes % 2.5 % (19.3-51.7); Mean Cell Volume 97.5 fL (79.4-94.8); Mean Corpuscular Hemoglobin 32.6 pg (25.6-32.2); Mean Corpuscular Hgb Concent. 33.5 g/dL (32.2-35.5); Mean Platelet Volume 11.4 fL (9.4-12.3); Monocytes % 0.7 % (4.7-12.5); Platelet Count 184 x10^3/uL (182-369); Red Blood Count 4.87 x10^6/uL (3.93-5.22); Red Cell Distribution Width 14.6 % (11.7-14.4); White Blood Count 14.6 x10^3/uL (3.98-10.04)
[2023-09-01 14:20] LABS: ALBUMIN 3.6 g/dL (3.5-5.0); ANION GAP 16.1 MEQ/L (5-15); BILIRUBIN,TOTAL 1.9 mg/dL (0.2-1.3); Calcium 8.7 mg/dL (8.4-10.2); Creatinine 1 1.75 mg/dL (0.52-1.04); EST GLOMERULAR FILTRATION RATE 29.5 ML/MIN; MAGNESIUM 1.7 mg/dL (1.6-2.3); Potassium 3.4 mmol/L (3.5-5.1); Total Protein 6.4 g/dL (6.3-8.2)
[2023-09-01 14:32] LABS: INR 1.05 (0.8-3.0); PROTIME 11.4 SECONDS (9.4-12.5)
--- NOTE | 2023-09-01 14:49 | XRAY ---
Indication: Altered mental status. Stroke. Multiple contiguous axial images obtained through the head without contrast. Comparison: July 11, 2021 Again age-appropriate global atrophy, moderate periventricular degenerative micro-ischemia bilaterally, and small remote infarct posterior limb left internal capsule. New remote lacunar infarct right thalamus. Again no acute intracranial hemorrhage, abnormal extra-axial fluid collection, or mass effect. Fourth ventricle is midline without hydrocephalus. Bony calvarium intact again with incidental hyperostosis frontalis interna. Visualized paranasal sinuses and mastoid air cells are clear. Impression: Again nonacute senile brain with remote infarct left internal capsule. New remote lacunar infarct right thalamus.
[2023-09-01 14:51] LABS: Appearance Turbid (Clear); Bacteria Many /HPF (None Seen); Bilirubin Negative (Negative); Blood Large (Negative); Epithelial Cells Rare /HPF (None Seen); Glucose, Urine Negative (Negative); Ketones Trace (Negative); Leukocyte Esterase Large (Negative); Nitrite Negative (Negative); Ph 5.5 (4.6-8.0); Protein,Urine Dip 100 (Negative); RBC 21-50 /HPF (0-5); Specific Gravity 1.015 (1.005-1.030); WBC >100 /HPF (0-5)
--- NOTE | 2023-09-01 14:51 | XRAY ---
Indication: Tachycardia. Altered mental status. Covid 19. Comparison: July 11, 2021 Portable chest remains inflated and clear with a few incidental tiny calcified granulomas. Heart and mediastinal structures within normal limits. Bony thorax intact again with osteopenia, degenerative changes, and old left rib fractures. Impression: Continued nonacute chest with chronic features.
[2023-09-01 14:56] LABS: ADD URINE CULTURE? YES (NO)
[2023-09-01 14:58] LABS: INFLUENZA A NEGATIVE (NEGATIVE); INFLUENZA B NEGATIVE (NEGATIVE); RESPIRATORY SYNCTIAL VIRUS NEGATIVE (NEGATIVE); SARS-CoV-2 Xpert Express NEGATIVE (NEGATIVE)
[2023-09-01 15:02] LABS: TSH, 3RD Generation 4.677 mIU/L (0.470-4.680)
[2023-09-01 16:03] LABS: Slide Review 1 YES
[2023-09-01] MEDS: ROCEPHIN 1 GM / 100 ML NaCl 1 GM/100 ML IVPB IV ONE (16:41)
[2023-09-01] MEDS ORDERED: ROCEPHIN 1 GM / 100 ML NaCl 1 GM/100 ML IVPB IV ONE (16:41)
[2023-09-01 17:04] LABS: TROPONIN 0.514 ng/mL (0.000-0.033)
[2023-09-01 17:11] VITALS: O2SAT 95
[2023-09-01 18:43] VITALS: BP 90/51; PULSE 84; RESP 31
== END 2023-09-01 19:10 | disposition short-term general hospital (02) ==
LOC: ED 13:49
DX: A41.9 Sepsis, unspecified organism (principal); N39.0 Urinary tract infection, site not specified; R65.20 Severe sepsis without septic shock; N17.9 Acute kidney failure, unspecified; R41.82 Altered mental status, unspecified; R77.8 Other specified abnormalities of plasma proteins; R79.89 Other specified abnormal findings of blood chemistry; R53.1 Weakness; R51.9 Headache, unspecified; I12.9 Hypertensive chronic kidney disease with stage 1 through stage 4 chronic kidney disease, or unspecified chronic kidney disease; E11.22 Type 2 diabetes mellitus with diabetic chronic kidney disease; N18.9 Chronic kidney disease, unspecified; E78.5 Hyperlipidemia, unspecified; Z79.4 Long term (current) use of insulin; Z79.899 Other long term (current) drug therapy
CPT/HCPCS: 0241U; 36000; 36415; 70450; 71045; 80053; 81001; 82140; 83605; 83735; 84439; 84443; 84484; 85025; 85610; 86308; 87040; 87077; 87086; 87186; 93005; 93041; 96360; 96361; 96365; 99285; 99291; J0696